=== PATIENT | female | born 1975 | race Caucasian/White ===

== ENCOUNTER 2024-02-13 09:45 | Emergency (ER) | payer SELFPAY ==
--- NOTE | 2024-02-13 10:01 | PD.EDRME ---
Rapid Medical Screening Exam RME Arrival date/time: 02/13/24 09:45 Chief Complaint: Hand/Wrist Problems RME Narrative: 48-year-old patient presents emergency department with complaint of left wrist pain. Patient states she drank excessively yesterday leading to a fall she does not recall when she fell if she struck her head. Pain is worse with flexion extension of her left wrist.
--- NOTE | 2024-02-13 10:02 | XR_ITS ---
Examination: CT brain head without contrast. 2-D sagittal coronal reconstructions Date and time of exam:February 13, 2024 1112 hrs. Indications: Patient fell this morning with injury to head, head pain CTDI: vol (mGy):49.6 DLP: (mGycm):1029 Technique: Multiple CT axial sections of the brain have been obtained, 5 mm slice thickness. Contrast has not been administered. 2-D sagittal, coronal reconstructions have been obtained Low dose protocols were performed. One or more of the following dose reduction techniques were used; automated exposure control, adjustment of the mA and/or KV according to patient size, use of iterative reconstruction technique. Findings: No significant ventricular enlargement. Intra-axial or extra-axial hemorrhage density is not seen. No mass effect or midline shift Basal cisterns are not remarkable. Fourth ventricle is midline. Cranial vault intact. Impression: Negative for acute hemorrhage, mass effect or midline shift Chronic ethmoid sphenoid sinusitis
--- NOTE | 2024-02-13 10:02 | XR_ITS ---
Examination: Wrist, left 3 views Technique: Wrist AP, oblique, lateral 3 views Date and time of exam: February 13, 2024 and 14 hours Indications: Patient fell today with intravenous, wrist pain Findings: No acute fracture No dislocation No foreign body Impression: No acute fracture
--- NOTE | 2024-02-13 10:02 | XR_ITS ---
Examination: Hand, left 3 views Technique: Hand AP, oblique, lateral 3 views Date and time of exam: February 13, 2024 and 15 hours Indications: Patient fell today with injury to hand, hand pain Findings: No acute fracture No dislocation No foreign body Impression: No acute fracture
[2024-02-13 10:07] VITALS: BP 116/78; PULSE 87; RESP 18; TEMP 36.7; O2SAT 97; BMI 31.1
[2024-02-13] MEDS: HYDROcodone/APAP 5/325 TABLET 1 TAB PO (10:14)
--- NOTE | 2024-02-13 11:49 | PRELIM_ITS ---
CT scan of the head without intravenous contrast (axial sections with sagittal and coronal reformats) February 13, 2024 at 1112 hours Clinical History: Fall Comparison: No prior study is available for co mparison. Findings:No evidence of intracranial hemorrhage, mass effect or midline shift. The ventricl es and CSF spaces are unremarkable. All the intracranial vascular structures and dural structures are slightly hyperdense, which may be related to recent contrast study, needs clinical correlation. The calvarium is intact. There is mild mucosal thickening in bilateral ethmoid and right sphenoid sinuses . The mastoid air cells are clear. Impression:No evidence of intracranial hemorrhage, midline shift o r calvarial fracture.Other findings as described above. Report Electronically Signed By: Jose Pennington 02/13/2024 11:48:40 AM [EST]
[2024-02-13 12:20] VITALS: BP 113/77; PULSE 85; RESP 16; TEMP 36.8; O2SAT 96
--- NOTE | 2024-02-13 13:48 | PD.EDADULT ---
ED General RME/HPI General Chief complaint: Hand/Wrist Problems Stated complaint: ETOH, fell last night left wrist Time Seen by Provider: 02/13/24 12:58 Arrival date/time: 02/13/24 09:45 CC: Left wrist/hand pain HPI patient was highly intoxicated and fell last night. Patient states she does not recall the event. Patient recently left her , and was drinking heavily. Patient denies nausea vomiting headache shortness of breath or difficulty breathing at this time focus solely on wrist pain which is 6 on a 10 scale no OTC medicines taken. RME / HPI RME / HPI narrative: 48-year-old patient presents emergency department with complaint of left wrist pain. Patient states she drank excessively yesterday leading to a fall she does not recall when she fell if she struck her head. Pain is worse with flexion extension of her left wrist. Related Data Previous Rx's ?Medication ?Instructions ?Recorded acetaminophen 500 mg capsule 1,000 mg (2 x 500 mg) PO Q6H PRN 04/16/20 fever or pain #30 caps ferrous sulfate 325 mg (65 mg 325 mg PO BID #120 tabs 04/16/20 iron) tablet ibuprofen 600 mg tablet 600 mg PO Q8H PRN fever or pain 04/16/20 #30 tabs sulfamethoxazole 800 1 tab PO BID #14 tabs 04/16/20 mg-trimethoprim 160 mg tablet (Bactrim DS) meloxicam 7.5 mg tablet 7.5 mg PO QDAY #10 tabs 02/13/24 Allergies Allergy/AdvReac Type Severity Reaction Status Date / Time No Known Allergies Allergy Verified 04/16/20 11:52 Review of Systems Review of Systems Narrative Review of Systems: GEN: No fever, no chills, no weight loss EYES: No discharge, no visual changes, no pain HEENT: No ear pain, no congestion, no sore throat PULM: No shortness of breath, no cough, no congestion CV: No chest pain, no dyspnea on exertion, no palpitations GI: No nausea, no vomiting, no diarrhea, no pain, no constipation : No frequency, no urgency, no dysuria MUSC/SKEL: + joint pain, no back pain SKIN: No rash PSYCH: No hallucinations, no depression HEME/LYMPH: No easy bleeding or bruising tendencies NEURO: No weakness, no headache Past Medical History Past Medical History CARDIAC: Negative Congestive Heart Failure RESPIRATORY: Negative Chronic Obstructive Pulmonary Disease (COPD) GASTROINTESTINAL: Positive Gastrointestinal Disorders and Ulcer GENITOURINARY: Negative Renal Disease MUSCULOSKELETAL: Positive Arthritis ENDOCRINE: Negative Diabetes Mellitus Type 1 or Diabetes Mellitus Type 2 PSYCHO/SOCIAL: Positive Depression and Anxiety Family History FAMILY HISTORY: Positive Family Psychiatric Problems Surgical History SURGICAL: Positive Abdominal Surgery, Gastric Bypass Surgery, Bowel Surgery and Tubal Ligation Social History SMOKING STATUS: Current every day smoker SUBSTANCE USE: marijuana, amphetamines and methamphetamine ED Exam Narrative Physical exam: [General: Obese in mild discomfort not in any acute distress Head normocephalic HEENT: Within acceptable limits Neck is supple nontender Chest equal chest rise nontender to palpation Respiratory: Clear to auscultation no wheezes crackles or rubs CV: Rate rhythm is regular no murmurs rubs or clicks Abdomen is distended secondary to body habitus soft nontender no masses positive bowel sounds all 4 quadrants Back: No CVA tenderness no spinous process tenderness from cervical spine thoracic and lumbar spine Skin: Intact no petechiae rash induration ulceration or crepitus Extremities: Pain with flexion extension rotation of the right wrist, pain with palpation of the dorsum of the right hand mild ecchymosis to the dorsum of the hand digits cap refill is less than 2 seconds neurosensory intact and full range of motion of the digits with prompting. Moving all other extremities against resistance cap refill less than 2 seconds neurosensory intact Neuro: Awake alert oriented x3 Glascow coma 15 no focal deficits] Course Quality Measures none Orders Category Date Time Status CT head/brain wo con Stat Exams 02/13/24 10:02 Completed XR hand comp LT min 3V Stat Exams 02/13/24 10:02 Completed XR wrist comp LT min 3V Stat Exams 02/13/24 10:02 Completed HYDROcodone*/APAP 5/325 [[place] 5/325] Med 02/13/24 10:02 Discontinued 1 tab PO X1 ONE Vital Signs Vital signs: Vital Signs Temperature 98.0 F 02/13/24 10:07 Pulse Rate 87 02/13/24 10:07 Respiratory Rate 18 02/13/24 10:07 Blood Pressure 116/78 02/13/24 10:07 Pulse Oximetry (%) 97 02/13/24 10:07 Oxygen Delivery Method Room Air 02/13/24 10:07 [facility] Patient data External records reviewed:: [facility] previous records Clinical information provided by:: patient Social determinants that could affect healthcare access:: none Patient has the following chronic illnesses:: None How is presenting disease/condition affected by chronic disease/condition?: uneffected by Evaluation data The following diagnostics were reviewed and interpreted by me:: radiology exam(s) Lab and/or radiology exams considered but not ordered:: CT of the head is interpreted by me read by radiology as negative for any acute finding requires emergent or meet intervention X-ray of the wrist and hand is interpreted by radiology as negative for any acute findings such as fracture malalignment or dislocation. Interpretation Summary: Right wrist and hand contusion Medications Medications considered but not ordered:: None Medication administrations:: Medication Administration History Discontinued Medications Hydrocodone Bitart/Acetaminophen (Hydrocodone/Apap 5/325 Tablet) 1 tab PO X1 ONE Stop: 02/13/24 10:03 Last Admin: 02/13/24 10:14 Dose: 1 tab Documented By: ED None Consultations Consultation(s) initiated? (list below): No Diagnosis Differential Diagnosis ED Complaint MDM: Wrist fracture hand fracture closed head injury Most likely diagnosis given after review of the tests above:: Wrist and hand contusion Admission Indicated Admission indicated?: not indicated Explain why admission is indicated or not indicated:: Stable for outpatient follow-up Admission Request Was there a request for admission?: No Disposition Plan Disposition Plan: Discharge Discharge Attestation Discharge Attestation: The patient and all family members were given an opportunity to ask questions and understood the discharge instructions. Discharge instructions specifically effects, indications for sooner follow up or return to the emergency department, and the expected course of current diagnosis. Patient condition: Stable Medical Decision Making Differential Diagnosis Differential Diagnosis: Wrist fracture hand fracture closed head injury Discharge Plan Plan Patient Disposition: HOME (Self Care) Patient condition on transfer: Stable Prescriptions/Referrals Prescriptions/Med Rec: New meloxicam 7.5 mg tablet 7.5 mg PO QDAY Qty: 10 0RF No Action sulfamethoxazole-trimethoprim [Bactrim DS] 800-160 mg tablet 1 tab PO BID Qty: 14 0RF ferrous sulfate 325 mg (65 mg iron) tablet 325 mg PO BID Qty: 120 0RF Rx Instructions: Be sure to take your iron pills on an empty stomach, with orange juice ibuprofen 600 mg tablet 600 mg PO Q8H PRN (Reason: fever or pain) Qty: 30 0RF acetaminophen 500 mg capsule 1,000 mg PO Q6H PRN (Reason: fever or pain) Qty: 30 0RF Referrals: Grzegorz Caraballo MD [Physician] - In 1 week No Primary/Family,Physician [Primary Care Provider] - In 1 week Problem List Clinical Impression: Ground-level fall, Contusion of left wrist, Contusion of hand Patient/Caregiver Discharge Instructions Education Materials: ED Hand Contusion, ED Mechanical Fall Additional Instructions: Avoid drinking alcohol, ibuprofen or pain medication listed above for temporary relief if there is worsening of symptoms follow-up with your primary care doctor or return the emergency room for reevaluation. Print Language: Qatari Stand Alone Forms: [facility] Award Info., Patient Portal Info Letter PA/CHUCKER Supervising Physician ELVA/LISANDRO Supervising Physician: Juan Alberto Beltran ENP
--- NOTE | 2024-02-13 15:01 | PC.NURSE ---
no answer x 3 at 1445 and 1500. checked outside and lobby.
--- NOTE | 2024-02-13 15:32 | PC.NURSE ---
no answer x 3 at 1532. checked outside and lobby. provider notified. patient left before receiving dc papers.
== END 2024-02-13 15:35 | disposition home or self-care (01) ==
PROVIDERS: Emergency Provider Emergency Medicine
DX: S60.212A Contusion of left wrist, initial encounter (principal); S60.222A Contusion of left hand, initial encounter; S09.90XA Unspecified injury of head, initial encounter; W18.30XA Fall on same level, unspecified, initial encounter
CPT/HCPCS: 70450; 73110; 73130; 99284; A9270

== ENCOUNTER 2024-07-12 11:20 | Emergency (ER) | payer MEDICAID, SELFPAY ==
--- NOTE | 2024-07-12 11:51 | XR_ITS ---
Examination: CT abdomen and pelvis without contrast. Coronal 3-D reconstructions. Sagittal 2-D reconstructions. Date and time of exam:July 12, 2024 1246 hours Comparison June 17, 2016 INDICATIONS: Lower abdominal pain and nausea today CTDI: vol (mGy): 9.18 DLP: (mGycm): 542 Technique: Axial images of the abdomen have been obtained, 3 mm slice thickness Intravenous contrast material has not been administered. Low dose protocols were performed. One or more of the following dose reduction techniques were used; automated exposure control, adjustment of the mA and/or KV according to patient size, use of iterative reconstruction technique. Findings: No focal liver or splenic lesions Absent gallbladder No pancreatic or adrenal mass No renal or ureteral calculi, no hydronephrosis Aorta normal size Normal appendix No bowel obstruction No diverticulitis Anteverted uterus No pelvic mass Contracted urinary bladder Mild osteopenia IMPRESSION: No renal or ureteral calculi, no hydronephrosis Normal appendix No bowel obstruction diverticulitis or free air
--- NOTE | 2024-07-12 11:51 | XR_ITS ---
Examination: PA lateral chest 2 views TECHNIQUE: Upright PA lateral chest 2 views Date and time: July 12, 2024 1222 hours Comparison 11/04/2018 INDICATIONS: Coughing shortness of breath beginning 3 days ago FINDINGS: Normal heart size Increased AP dimension chest Mild parenchymal disease in the right middle lobe on the lateral view Mild kyphosis dorsal spine IMPRESSION: Suspicious for early pneumonia right middle lobe
[2024-07-12 11:52] VITALS: BP 129/89; PULSE 80; RESP 16; TEMP 36.8; O2SAT 96; BMI 25.0
--- NOTE | 2024-07-12 11:53 | PD.EDRME ---
Rapid Medical Screening Exam RME Arrival date/time: 07/12/24 11:20 48-year-old female presents to the emergency dept today for complaints of abdominal pain, cough and congestion Chief Complaint: Flu Like Symptoms Time Seen by Provider: 07/12/24 11:38
[2024-07-12 12:37] LABS: Basophils % (Auto) 1 % (0-2.5); Eosinophils # (Auto) 0.1 Thou/mm3 (0.0-0.5); Eosinophils % (Auto) 1 % (0-10); Hematocrit 50.9 % (36.0-46.0); Hemoglobin 17.5 g/dL (12.0-16.0); Immature Granulocytes % (Auto) 0 % (0-0); Immature Granulocytes Auto 0.02 Thou/mm3 (0.00-0.00); Lymphocytes # (Auto) 1.4 Thou/mm3 (1.0-4.8); Lymphocytes % (Auto) 19 % (10-50); Mean Corpuscular HGB Conc 34.4 g/dl (31.0-37.0); Mean Corpuscular Hemoglobin 29.6 pg (25.0-35.0); Mean Corpuscular Volume 86 fL (80-100); Monocytes # (Auto) 0.6 Thou/mm3 (0.0-0.8); Monocytes % (Auto) 9 % (0-12); Neutrophils # (Auto) 5.1 Thou/mm3 (1.8-7.7); Neutrophils % (Auto) 70 % (37-80); Nucleated Red Blood Cell % 0 /100 WBC (0); Platelet Count 277 Thou/mm3 (140-440); RDW Standard Deviation 41.6 fL (36.4-46.3); Red Blood Count 5.92 Miln/mm3 (4.00-5.20); White Blood Count 7.2 Thou/mm3 (3.6-11.0)
[2024-07-12 13:07] LABS: B-Type Natriuretic Peptide < 20 pg/mL (0-100)
[2024-07-12 13:16] LABS: Alanine Aminotransferase 8 U/L (10-49); Albumin, Serum 4.6 gm/dL (3.5-5.0); Albumin/Globulin Ratio 1.6 (1.2-2.2); Alkaline Phosphatase 108 U/L (46-116); Anion Gap 11 (7-16); Aspartate Amino Transferase 19 U/L (0-34); BUN/Creatinine Ratio 12 Ratio (12-20); Bilirubin,Total 0.6 mg/dL (0.3-1.2); Blood Urea Nitrogen 12 mg/dL (9-23); Calcium 9.5 mg/dL (8.3-10.6); Calcium (Corrected) 9.5 mg/dL (8.5-10.1); Carbon Dioxide 26.3 mMol/L (20.0-31.0); Chloride 107 mMol/L (98-107); Estimated Creatinine Clearance 69.4 mL/min (>60); Globulin 2.8 gm/dL (2.3-3.5); Glucose 89 mg/dL (74-106); Lipase 34 U/L (12-53); Osmolality,Calculated 285 (275-295); Potassium 3.8 mMol/L (3.4-5.1); Sodium 144 mMol/L (136-145); Total Protein 7.4 gm/dL (5.7-8.2); Troponin I < 0.002 ng/mL (0.0-0.045); eGFR > 60 See Note
[2024-07-12 13:58] LABS: Collection Type, Urine Clean Catch
[2024-07-12 14:20] LABS: Amphetamine/Methamp Scrn,U Negative (Negative); Barbiturate Screen,Urine Negative (Negative); Benzodiazepines Screen,Urine Negative (Negative); Benzoylecgonine Screen, Ur Negative (Negative); Fentanyl Screen,Urine Negative (Negative); Opiate Screen,Urine Negative (Negative); THC Screen,Urine Negative (Negative)
[2024-07-12 14:21] LABS: HCG Qualitative,Urine Negative
[2024-07-12 14:27] LABS: Bacteria,Urine Rare; Bilirubin,Urine Negative (Negative); Blood,Urine 2+ (Negative); Clarity,Urine Turbid (Clear/Hazy); Color,Urine Yellow (Lt Yel-Yel); Culture Indicated,Urine Contaminated; Glucose, Urine Negative (Negative); Ketones,Urine Negative (Negative); Leukocyte Esterase,Urine Positive (Negative); Nitrite,Urine Positive (Negative); Protein,Urine 1+ (Neg - Trace); RBC,Urine 12 /hpf (0-3); Specific Gravity,Urine 1.012 (1.001-1.035); Squamous Epithelial Cell,Urine 14 /hpf (0-5); Urobilinogen,Urine Negative mg/dL (0.0-1.0); WBC,Urine 220 /hpf (0-5)
--- NOTE | 2024-07-12 15:03 | EDNOTE_ITS ---
Upper Respiratory Inf. RME/HPI General Chief Complaint: Flu Like Symptoms Stated Complaint: Cough, lower abdominal pain Time Seen by Provider: 07/12/24 11:38 Arrival date/time: 07/12/24 11:20 RME / HPI RME / HPI Narrative: 07/12/24 11:20 48-year-old female presents to the emergency dept today for complaints of abdominal pain, cough and congestion DR. YULIANA SINGH ED EVALUATION: 48 year old female presents to the ED with shortness of breath, cough worse when lying down, and nasal congestion that began 2 days ago. She also reports experiencing chills, intermittent sweats, lower abdominal aching, and urinary u rgency, though she denies dysuria or fever. In addition, the patient states she is scheduled for a colonoscopy due to ongoing issues with persistent loose stools alternating with constipation. Her surgical history is notable for hiatal hernia repair, perforated ulcer repair, and tubal ligation. Related Data Previous Rx's ?Medication ?Instructions ?Recorded acetaminophen 500 mg capsule 1,000 mg (2 x 500 mg) PO Q6H PRN 04/16/20 fever or pain #30 caps ferrous sulfate 325 mg (65 mg 325 mg PO BID #120 tabs 04/16/20 iron) tablet ibuprofen 600 mg tablet 600 mg PO Q8H PRN fever or p ain 04/16/20 #30 tabs sulfamethoxazole 800 1 tab PO BID #14 tabs mg-trimethoprim 160 mg tablet (Bactrim DS) meloxicam 7.5 mg tablet 7.5 mg PO QDAY #10 tabs 07/02 cephalexin 500 mg capsule 500 mg PO BID #6 caps Allergies Allergy/AdvReac Type Severity Reaction Status Date / Time No Known Allergies Allergy Verified 07/12/24 11:23 Review of Systems Review of Systems Systems Reviewed: All systems reviewed, normal except as documented Past Medical History Past Medical History GASTROINTESTINAL: Positive Gastrointestinal Disorders and Ulcer MUSCULOSKELETAL: Positive Arthritis PSYCHO/SOCIAL: Positive Depression and Anxiety Family History FAMILY HISTORY: Positive Family Psychiatric Problems Surgical History SURGICAL: Positive Abdominal Surgery, Gastric Bypass Surgery, Bowel Surgery and Tubal Ligation Social History SMOKING STATUS: Heavy (> 1 pack/day) SUBSTANCE USE: marijuana, amphetamines and methamphetamine ED Exam Narrative Physical exam: GENERAL APPEARANCE: AxOx4, no obvious distress, nontoxic appearing HEENT: NC, AT. MMM. EOMI, clear conjunctiva, oropharynx clear. NECK: Supple without lymphadenopathy. No stiffness or restricted ROM. HEART: Normal rate and regular rhythm, normal S1/S1, no m/r/g LUNGS: CTAB, moving air well. No crackles or wheezes are heard. ABDOMEN: Soft, large vertical surgical scar noted, nontender, nondistended with good bowel sounds heard. BACK: No midline C/T/L spine pain or deformity, No CVAT, no obvious deformity. EXTREMITIES: Without cyanosis, clubbing or edema. MUSCULOSKELETAL: FROM of all major joints, no chest tenderness NEUROLOGICAL: Grossly nonfocal. Alert and oriented, moving all 4 extremities. CN not formally tested but appear grossly intact. Skin: Warm and dry without any rash. Course Quality Measures none Orders Category Date Time Status CT abdomen pelvis wo con Stat Exams 07/12/24 11:51 Completed XR chest 2V Stat Exams 07/12/24 11:51 Completed BNP [B-Type Natriuretic Peptide] Stat Lab 07/12/24 12:11 Completed CBC Stat Lab 07/12/24 12:11 Completed Comprehensive Metabolic Panel Stat Lab 07/12/24 12:11 Completed Drug Screen,Urine Stat Lab 07/12/24 13:50 Completed HCG Qualitative,Urine Stat Lab 07/12/24 13:50 Completed Lipase Stat Lab 07/12/24 12:11 Completed Troponin I Stat Lab 07/12/24 12:11 Completed UA, C/S IF [Urinalysis, C/S if Indicated] Stat Lab 07/12/24 13:50 Completed Vital Signs Vital signs: Vital Signs Temperature 98.2 F 07/12/24 11:52 Pulse Rate 80 07/12/24 11:52 Respiratory Rate 16 07/12/24 11:52 Blood Pressure 129/89 H 07/12/24 11:52 Pulse Oximetry (%) 96 07/12/24 11:52 Oxygen Delivery Method Room Air 07/12/24 11:52 Pulse ox is 96% on room air which is adequate. Upper Respiratory Infection MDM Narrative MDM Narrative:: Angelia Arreola am scribing for and in the presence of Dr. Plaza. Patient data External records reviewed:: [facility] previous records (I reviewed ED visit on 02/13/2024 ) Clinical information provided by:: patient Social determinants that could affect healthcare access:: none Patient has the following chronic illnesses:: hiatal hernia repair, perforated ulcer repair, and tubal ligation. How is presenting disease/condition affected by chronic disease/condition?: uneffected by Evaluation data The following diagnostics were reviewed and interpreted by me:: lab results and radiology exam(s) Lab and/or radiology exams considered but not ordered:: None Interpretation Summary: Ordering Physician: Irwin Ramírez NP, NP Date of Service: 07/12/24 Procedure(s): CT abdomen pelvis wo con Accession Number(s): [id number] cc: Desiree ONEIL)Irwin NP; Andres Moore PA-C; Teddy Quiroz MD~ Examination: CT abdomen and pelvis without contrast. Coronal 3-D reconstructions. Sagittal 2-D reconstructions. Date and time of exam:July 12, 2024 1246 hours Comparison June 17, 2016 INDICATIONS: Lower abdominal pain and nausea today CTDI: vol (mGy): 9.18 DLP: (mGycm): 542 Technique: Axial images of the abdomen have been obtained, 3 mm slice thickness Intravenous contrast material has not been administered. Low dose protocols were performed. One or more of the following dose reduction techniques were used; automated exposure control, adjustment of the mA and/or KV according to patient size, use of iterative reconstruction technique. Findings: No focal liver or splenic lesions Absent gallbladder No pancreatic or adrenal mass No renal or ureteral calculi, no hydronephrosis Aorta normal size Normal appendix No bowel obstruction No diverticulitis Anteverted uterus No pelvic mass Contracted urinary bladder Mild osteopenia IMPRESSION: No renal or ureteral calculi, no hydronephrosis Normal appendix No bowel obstruction diverticulitis or free air Dictated By: Teddy Quiroz MD Signed By: <Electronically signed by Teddy Quiroz MD in OV> 07/12/24 1306 = Ordering Physician: Irwin Ramírez NP, NP Date of Service: 07/12/24 Procedure(s): XR chest 2V Accession Number(s): [id number] cc: Desiree (JOSE),Irwin GARCIA; Andres Moore PA-C; Teddy Quiroz MD~ Examination: PA lateral chest 2 views TECHNIQUE: Upright PA lateral chest 2 views Date and time: July 12, 2024 1222 hours Comparison 11/04/2018 INDICATIONS: Coughing shortness of breath beginning 3 days ago FINDINGS: Normal heart size Increased AP dimension chest Mild parenchymal disease in the right middle lobe on the lateral view Mild kyphosis dorsal spine IMPRESSION: Suspicious for early pneumonia right middle lobe Dictated By: Teddy Quiroz MD Signed By: <Electronically signed by Teddy Quiroz MD in OV> 07/12/24 1235 Medications / Prescriptions Medications or Prescriptions considered but not ordered:: None Medication administrations:: None Consultations Consultation(s) initiated? (list below): No Diagnosis Upper Respiratory Differential Diagnosis: upper respiratory infection, viral in fection, bronchitis, influenza and other (UTI ) Most likely diagnosis given after review of the tests above:: UTI Post nasal drip Admission Indicated Admission indicated?: not indicated Admission Request Was there a request for admission?: No Disposition Plan Disposition Plan: Discharge Discharge Attestation Discharge Attestation: The patient and all family members were given an opportunity to ask questions and understood the discharge instructions. Discharge instructions specifically effects, indications for sooner follow up or return to the emergency department, and the expected course of current diagnosis. Patient condition: Stable Discharge Plan Plan Patient Disposition: HOME (Self Care) Prescriptions/Referrals Prescriptions/Med Rec: New cephalexin 500 mg capsule 500 mg PO BID Qty: 6 0RF No Action sulfamethoxazole-trimethoprim [Bactrim DS] 800-160 mg tablet 1 tab PO BID Qty: 14 0RF ferrous sulfate 325 mg (65 mg iron) tablet 325 mg PO BID Qty: 120 0RF Rx Instructions: Be sure to take your iron pills on an empty stomach, with orange juice ibuprofen 600 mg tablet 600 mg PO Q8H PRN (Reason: fever or pain) Qty: 30 0RF acetaminophen 500 mg capsule 1,000 mg PO Q6H PRN (Reason: fever or pain) Qty: 30 0RF meloxicam 7.5 mg tablet 7.5 mg PO QDAY Qty: 10 0RF Referrals: Andres Moore PA-C [Primary Care Provider] - In 1 week Problem List Clinical Impression: UTI (urinary tract infection), Post-nasal drip Patient/Caregiver Discharge Instructions Education Materials: ED Cough Chronic Uncertain Cause Adult, ED Allergic Rhinitis, ED CYSTITIS Female Adult Additional Instructions: Follow-up with your primary care doctor in 3 to 5 days if symptoms or not improving. You can return to the Emergency Department sooner symptoms worsen or if noticing new, concerning issues. Print Language: Montenegrin Stand Alone Forms: [facility] Award Info., Patient Portal Info Letter
[2024-07-12 15:16] VITALS: BP 122/87; PULSE 78
== END 2024-07-12 15:17 | disposition home or self-care (01) ==
PROVIDERS: Nurse Practitioner Primary Care; Emergency Provider Emergency Medicine; PCP Physician Assistant
DX: N39.0 Urinary tract infection, site not specified (principal); R09.82 Postnasal drip; R05.9 Cough, unspecified
CPT/HCPCS: 36415; 71046; 74176; 80053; 80307; 81001; 81025; 83690; 83880; 84484; 85025; 99284

== ENCOUNTER 2024-10-06 11:24 | Emergency (ER) | payer SELFPAY ==
[2024-10-06 11:25] VITALS: BMI 24.3
[2024-10-06 11:33] VITALS: BP 154/76; PULSE 89; RESP 18; TEMP 36.9; O2SAT 97
--- NOTE | 2024-10-06 11:41 | XR_ITS ---
Examination: CT abdomen and pelvis without contrast. Coronal 3-D reconstructions. Sagittal 2-D reconstructions. Date and time of exam:October 06, 2024, 1331 hours, comparison July 12, 2024 INDICATIONS: Lower abdominal pain and nausea today CTDI: vol (mGy): 7.27 DLP: (mGycm): 402 Technique: Axial images of the abdomen have been obtained, 3 mm slice thickness Intravenous contrast material has not been administered. Low dose protocols were performed. One or more of the following dose reduction techniques were used; automated exposure control, adjustment of the mA and/or KV according to patient size, use of iterative reconstruction technique. Findings: Small pericardial effusion No focal liver or splenic lesions Gastric sutures, negative for gastritis Absent gallbladder No pancreatic or adrenal mass No renal or ureteral calculi, no hydronephrosis Aorta normal size Normal appendix No diverticulitis No bowel obstruction Atrophic uterus No pelvic mass Contracted urinary bladder Moderate osteopenia IMPRESSION: Nonobstructive bowel gas pattern. No renal or ureteral calculi, no hydronephrosis Normal appendix No diverticulitis
--- NOTE | 2024-10-06 11:42 | EDRME_ITS ---
Rapid Medical Screening Exam [facility] Arrival date/time: 10/06/24 11:24 49-year-old female with history of abdominal pain presents to the emergency room with a chief complaint of 10 out of 10 epigastric pain that radiates to the right upper quadrant and right lower quadrant x 2 days. Patient states she has had nausea vomiting. I have greeted and performed a focused initial assessment of this patient. A comprehensive ED assessment and evaluation of the patient, analysis of all test results, and completion of the medical decision making process will be conducted by additional ED providers. Chief Complaint: Abdominal Pain Time Seen by Provider: 10/06/24 11:28 Vital signs: Vital Signs Temperature 98.5 F 10/06/24 11:33 Pulse Rate 89 10/06/24 11:33 Respiratory Rate 18 10/06/24 11:33 Blood Pressure 154/76 H 10/06/24 11:33 Pulse Oximetry (%) 97 10/06/24 11:33 Oxygen Delivery Method Room Air 10/06/24 11:33 Vital signs reviewed by provider: Yes
[2024-10-06] MEDS: ONDANSETRON ODT 4 MG TABRAP PO (11:52)
[2024-10-06] MEDS: MG HYD/AL HYD/SIME (Maalox Reg) SUSP 30 ML UDC PO (11:53)
[2024-10-06 11:55] LABS: Collection Type, Urine Clean Catch
[2024-10-06 11:59] LABS: Basophils # (Auto) 0.1 Thou/mm3 (0.0-0.2); Basophils % (Auto) 1 % (0-2.5); Eosinophils # (Auto) 0.1 Thou/mm3 (0.0-0.5); Eosinophils % (Auto) 2 % (0-10); Hematocrit 52.4 % (36.0-46.0); Hemoglobin 17.3 g/dL (12.0-16.0); Immature Granulocytes Auto 0.02 Thou/mm3 (0.00-0.00); Lymphocytes # (Auto) 2.3 Thou/mm3 (1.0-4.8); Lymphocytes % (Auto) 28 % (10-50); Mean Corpuscular HGB Conc 33.0 g/dl (31.0-37.0); Mean Corpuscular Hemoglobin 29.3 pg (25.0-35.0); Mean Corpuscular Volume 89 fL (80-100); Monocytes # (Auto) 0.5 Thou/mm3 (0.0-0.8); Monocytes % (Auto) 6 % (0-12); Neutrophils # (Auto) 5.2 Thou/mm3 (1.8-7.7); Neutrophils % (Auto) 63 % (37-80); Nucleated Red Blood Cell # 0.00 Thou/mm3 (0.00-0.00); Nucleated Red Blood Cell % 0 /100 WBC (0); Platelet Count 290 Thou/mm3 (140-440); RDW Standard Deviation 41.6 fL (36.4-46.3); Red Blood Count 5.90 Miln/mm3 (4.00-5.20); White Blood Count 8.3 Thou/mm3 (3.6-11.0)
[2024-10-06 12:09] LABS: Bacteria,Urine Rare; Bilirubin,Urine Negative (Negative); Blood,Urine Negative (Negative); Clarity,Urine Clear (Clear/Hazy); Color,Urine Yellow (Lt Yel-Yel); Glucose, Urine Negative (Negative); Hyaline Casts,Urine < 1 /hpf (0-1); Ketones,Urine Negative (Negative); Leukocyte Esterase,Urine Negative (Negative); Nitrite,Urine Negative (Negative); PH,Urine 5.5 (5.0-7.0); Protein,Urine Trace (Neg - Trace); RBC,Urine 4 /hpf (0-3); Specific Gravity,Urine 1.032 (1.001-1.035); Squamous Epithelial Cell,Urine < 1 /hpf (0-5); Urobilinogen,Urine 2.0 mg/dL (0.0-1.0); WBC,Urine 9 /hpf (0-5)
[2024-10-06 12:10] LABS: HCG Qualitative,Urine Negative
[2024-10-06 12:37] LABS: Alanine Aminotransferase 8 U/L (10-49); Albumin, Serum 4.2 gm/dL (3.5-5.0); Albumin/Globulin Ratio 1.6 (1.2-2.2); Alkaline Phosphatase 73 U/L (46-116); Anion Gap 10 (7-16); Aspartate Amino Transferase 17 U/L (0-34); BUN/Creatinine Ratio 13 Ratio (12-20); Bilirubin,Total 0.5 mg/dL (0.3-1.2); Blood Urea Nitrogen 10 mg/dL (9-23); Calcium 9.9 mg/dL (8.3-10.6); Calcium (Corrected) 9.9 mg/dL (8.5-10.1); Carbon Dioxide 25.0 mMol/L (20.0-31.0); Chloride 108 mMol/L (98-107); Creatinine (Component) 0.8 mg/dL (0.6-1.3); Estimated Creatinine Clearance 85.8 mL/min (>60); Globulin 2.7 gm/dL (2.3-3.5); Glucose 76 mg/dL (74-106); Lipase 29 U/L (12-53); Osmolality,Calculated 282 (275-295); Potassium 3.4 mMol/L (3.4-5.1); Sodium 143 mMol/L (136-145); Total Protein 6.9 gm/dL (5.7-8.2); eGFR > 60 See Note
--- NOTE | 2024-10-06 13:25 | PD.EDABDPN ---
ED Abdominal Pain RME/HPI General Chief Complaint: Abdominal Pain Stated complaint: ABD PAIN FOR 7 DAYS Time seen by provider: 10/06/24 11:28 Arrival date/time: 10/06/24 11:24 RME / HPI RME / HPI narrative: 49-year-old female with history of abdominal pain presents to the emergency room with a chief complaint of 10 out of 10 epigastric pain that radiates to the right upper quadrant and right lower quadrant x 2 days. Patient states she has had nausea vomiting. Patient denies any fever. Denies any other complaints. No medication was taken prior to arrival. Denies any blood in the stool or black-colored stool. Related Data Previous Rx's ?Medication ?Instructions ?Recorded acetaminophen 500 mg capsule 1,000 mg (2 x 500 mg) PO Q6H PRN 04/16/20 fever or pain #30 caps ferrous sulfate 325 mg (65 mg 325 mg PO BID #120 tabs 04/16/20 iron) tablet ibuprofen 600 mg tablet 600 mg PO Q8H PRN fever or pain 04/16/20 #30 tabs sulfamethoxazole 800 1 tab PO BID #14 tabs 04/16/20 mg-trimethoprim 160 mg tablet (Bactrim DS) meloxicam 7.5 mg tablet 7.5 mg PO QDAY #10 tabs 02/13/24 cephalexin 500 mg capsule 500 mg PO BID #6 caps 07/12/24 pantoprazole 40 mg tablet,delayed 40 mg PO QDAY #30 tabs 10/06/24 release (Protonix) Allergies Allergy/AdvReac Type Severity Reaction Status Date / Time No Known Allergies Allergy Verified 10/06/24 11:26 Review of Systems Review of Systems Narrative Review of Systems: Review of system reviewed and within normal limits except mentioned in HPI ED Exam Narrative Physical exam: VITAL SIGNS: Reviewed. GENERAL APPEARANCE: Alert and interactive, follows commands, no acute distress, HEAD AND FACE: Non-traumatic. ENT: PERRL, pink conjunctivitis, eyelid no trauma, Mucous membrane moist. NECK: Supple, nontender, no nuchal rigidity. CHEST: No tenderness, no crepitus, no paradoxical movement, no retractions. LUNGS: Clear, well ventilated, symmetric, no rales, no wheezing, no ronchi, no stridor, good breath sounds bilaterally. HEART: Regular rate, regular rhythm, no murmur, no gallops. ABDOMEN: Soft, positive bowel sounds, nondistended, no guarding, epigastric tenderness, no rebound, no masses, RECTAL: Deferred. GENITAL: Deferred. NEUROLOGICAL: Gross motor function intact sensory function intact, Appropriate for age. MUSCULOSKELETAL: low back nontender, full range of motion. EXTREMITIES: Nontender, full range of motion. SKIN: Color pink, dry, no rash, no lacerations, no abrasions, no contusions. LYMPHATICS: Deferred. Course Quality Measures none Orders Category Date Time Status CT abdomen pelvis wo con Stat Exams 10/06/24 11:41 Completed CBC Stat Lab 10/06/24 11:48 Completed CMP [Comprehensive Metabolic Panel] Stat Lab 10/06/24 11:48 Completed HCG Qualitative,Urine Stat Lab 10/06/24 11:49 Completed Lipase Stat Lab 10/06/24 11:48 Completed UA [Urinalysis] Stat Lab 10/06/24 11:49 Completed Urine Culture Stat Lab 10/06/24 11:49 Received Ondansetron Odt [Zofran Odt] Med 10/06/24 11:41 Discontinued 4 mg PO X1 ONE Pantoprazole [Protonix] Med 10/06/24 13:25 Discontinued 40 mg PO X1 ONE mg Hyd/Al Hyd/Chary Susp [Maalox Susp] Med 10/06/24 11:41 Discontinued 30 ml PO X1 ONE Vital Signs Vital signs: Vital Signs Temperature 98.5 F 10/06/24 11:33 Pulse Rate 89 10/06/24 11:33 Respiratory Rate 18 10/06/24 11:33 Blood Pressure 154/76 H 10/06/24 11:33 Pulse Oximetry (%) 97 10/06/24 11:33 Oxygen Delivery Method Room Air 10/06/24 11:33 Abdominal Pain MDM MDM Narrative MDM Narrative:: 49-year-old female with history of abdominal pain presents to the emergency room with a chief complaint of 10 out of 10 epigastric pain that radiates to the right upper quadrant and right lower quadrant x 2 days. Patient states she has had nausea vomiting. Patient denies any fever. Denies any other complaints. No medication was taken prior to arrival. Denies any blood in the stool or black-colored stool. CT scan of the abdomen pelvis came back unremarkable. Patient's laboratory workup also came back normal. No abnormality noted. Results discussed with the patient. Patient appears nontoxic and hemodynamically stable .Decision to discharge the patient. The patient/family was given an opportunity to ask questions and understood their discharge instructions. Discharge instructions specifically included follow up provider and time frame, current and/or new medications and possible side effects, indications for sooner follow up or return to the emergency department, and the expected course of current diagnosis. Patient reports feeling better as well and giving evidence of significant clinical improvement, I believe patient is now a candidate for discharge. Patient data External records reviewed:: None Clinical information provided by:: patient Social determinants that could affect healthcare access:: none Patient has the following chronic illnesses:: Psoriasis How is presenting disease/condition affected by chronic disease/condition?: uneffected by Evaluation data The following diagnostics were reviewed and interpreted by me:: lab results and radiology exam(s) Lab and/or radiology exams considered but not ordered:: None Interpretation Summary: See results in MDM Medications / Prescriptions Medications or Prescriptions considered but not ordered:: None Medication administrations:: Medication Administration History Discontinued Medications Al Hydrox/Mg Hydrox/Simethicone (Mg Hyd/Al Hyd/Chary (Maalox Reg) Susp 30 Ml Udc) 30 ml PO X1 ONE Stop: 10/06/24 11:42 Last Admin: 10/06/24 11:53 Dose: 30 ml Documented By: Ondansetron HCl (Ondansetron Odt 4 Mg Tabrap) 4 mg PO X1 ONE; Protocol Stop: 10/06/24 11:42 Last Admin: 10/06/24 11:52 Dose: 4 mg Documented By: Pantoprazole Sodium (Pantoprazole 40 Mg Tablet) 40 mg PO X1 ONE Stop: 10/06/24 13:26 Zofran, Maalox and Protonix Consultations Consultation(s) initiated? (list below): No Diagnosis Differential diagnosis abdominal pain: abdominal pain, constipation and gastroenteritis Most likely diagnosis given after review of the tests above:: Gastritis Admission Indicated Admission indicated?: not indicated Explain why admission is indicated or not indicated:: Stable Admission Request Was there a request for admission?: No Disposition Plan Disposition Plan: Discharge Discharge Attestation Discharge Attestation: The patient was given an opportunity to ask questions and understood the discharge instructions. Discharge instructions specifically effects, indications for sooner follow up or return to the emergency department, and the expected course of current diagnosis. Patient condition: Stable Discharge Plan Plan Patient Disposition: HOME (Self Care) Discharge Disposition comment: stable Prescriptions/Referrals Prescriptions/Med Rec: New pantoprazole [Protonix] 40 mg tablet,delayed release (DR/EC) 40 mg PO QDAY Qty: 30 0RF No Action sulfamethoxazole-trimethoprim [Bactrim DS] 800-160 mg tablet 1 tab PO BID Qty: 14 0RF ferrous sulfate 325 mg (65 mg iron) tablet 325 mg PO BID Qty: 120 0RF Rx Instructions: Be sure to take your iron pills on an empty stomach, with orange juice ibuprofen 600 mg tablet 600 mg PO Q8H PRN (Reason: fever or pain) Qty: 30 0RF acetaminophen 500 mg capsule 1,000 mg PO Q6H PRN (Reason: fever or pain) Qty: 30 0RF meloxicam 7.5 mg tablet 7.5 mg PO QDAY Qty: 10 0RF cephalexin 500 mg capsule 500 mg PO BID Qty: 6 0RF Referrals: Grzegorz Caraballo MD [Primary Care Provider] - In 1 week Problem List Clinical Impression: Abdominal pain, Gastritis Patient/Caregiver Discharge Instructions Discharge Activity: activity as tolerated Education Materials: ED Gastritis (Adult) Additional Instructions: Thank you for the opportunity for serving you today. You are stable for discharged . You are advised to: Follow-up with your PCP in 1 to 2 days Return to ED for worsening of symptoms Increase oral fluids Take medication as prescribed Print Language: Lebanese Stand Alone Forms: [employer] Info., Patient Portal Info Letter
[2024-10-06 14:31] VITALS: BP 134/96; PULSE 63; RESP 15; TEMP 36.8; O2SAT 98
[2024-10-06] MEDS: PANTOPRAZOLE 40 MG TABLET PO (15:11)
[2024-10-06 15:12] VITALS: BP 133/99; PULSE 67; RESP 18; TEMP 36.6; O2SAT 99
== END 2024-10-06 15:15 | disposition home or self-care (01) ==
PROVIDERS: Nurse Practitioner Family; Emergency Provider Family Medicine; PCP Family Medicine
DX: K29.70 Gastritis, unspecified, without bleeding (principal)
CPT/HCPCS: 36415; 74176; 80053; 81001; 81025; 83690; 85025; 87077; 87086; 87186; 99283; Q0162; A9270

== ENCOUNTER 2024-10-08 07:40 | Emergency (ER) | payer MEDICAID, SELFPAY ==
[2024-10-08 07:45] VITALS: BP 146/94; PULSE 96; RESP 18; TEMP 36.5; O2SAT 97
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
[2024-10-08] MEDS: HYDROcodone/APAP 5/325 TABLET 1 TAB PO (08:08)
[2024-10-08] MEDS: ONDANSETRON ODT 4 MG TABRAP PO (08:09)
[2024-10-08] MEDS: DEXAMETHASONE SOD PHOS INJ 10 MG/ML VIAL PO (08:09)
[2024-10-08] MEDS: KETOROLAC INJ 60 MG/2 ML VIAL 30 MG IM (08:11)
== END 2024-10-08 08:17 | disposition home or self-care (01) ==
PROVIDERS: Emergency Provider Physician Assistant; PCP Family Medicine
DX: L40.50 Arthropathic psoriasis, unspecified (principal)
CPT/HCPCS: 96372; 99283; J1100; J1885; Q0162; A9270

== ENCOUNTER 2024-10-09 12:40 | Emergency (ER) | payer MEDICAID, SELFPAY ==
[2024-10-09 12:41] VITALS: BMI 24.3
[2024-10-09 13:01] VITALS: BP 148/84; PULSE 88; RESP 18; TEMP 37.1; O2SAT 99
--- NOTE | 2024-10-09 13:13 | XR_ITS ---
Examination: Thoracic spine 3 views Technique one AP lateral coned lateral upper dorsal spine 3 views Date and time: October 09, 2024 1331 hrs. Indications: Upper back pain beginning one week ago. Findings: Upper thoracic dextroscoliosis 10 degrees, lower thoracic levoscoliosis 10 degrees Moderate osteopenia. No acute thoracic fracture. Mild thoracic spondylosis. Mild to moderate diffuse thoracic disc narrowing Impression: Mild to moderate diffuse thoracic degenerative disc disease
--- NOTE | 2024-10-09 13:32 | EDNOTE_ITS ---
<Statement entered by Lyn Carter MD - 10/21/24 11:15> As co-signing physician, I was present and available for consult prn. I concur with the plan and care as documented by the midlevel provider. ED General RME/HPI General Chief complaint: General Adult/Misc Complain Stated complaint: C/O DIFF BREATHING FROM ARTHRITIS FLAIR UP Time Seen by Provider: 10/09/24 13:11 Source: patient Arrival date/time: 10/09/24 12:40 49-year-old female with no known medical history presents to the emergency room with a chief complaint of thoracic back pain x 1 day Mode of arrival: ambulatory Limitations: no limitations Related Data Previous Rx's ?Medication ?Instructions ?Recorded acetaminophen 500 mg capsule 1,000 mg (2 x 500 mg) PO Q6H PRN 04/16/20 fever or pain #30 caps ferrous sulfate 325 mg (65 mg 325 mg PO BID #120 tabs 04/16/20 iron) tablet ibuprofen 600 mg tablet 600 mg PO Q8H PRN fever or p ain 04/16/20 #30 tabs sulfamethoxazole 800 1 tab PO BID #14 tabs mg-trimethoprim 160 mg tablet (Bactrim DS) meloxicam 7.5 mg tablet 7.5 mg PO QDAY #10 tabs 07/02 cephalexin 500 mg capsule 500 mg PO BID #6 caps pantoprazole 40 mg tablet,delayed 40 mg PO QDAY #30 ta bs 10/06/24 release (Protonix) IBU 800 mg tablet (ibuprofen) 800 mg PO Q6H PRN pain # 30 tabs 10/08/24 prednisone 20 mg tablet 60 mg PO QDAY 5 days #15 tab s 10/08/24 Allergies Allergy/AdvReac Type Severity Reaction Status Date / Time No Known Allergies Allergy Verified 10/09/24 12:43 Review of Systems Review of Systems Systems Reviewed: All systems reviewed, normal except as documented Constitutional Constitutional: Reports system reviewed and no additional complaints, except as documented, Denies fatigue, Denies fever(s), Denies headache(s) and Denies weakness Eyes Eyes: Reports system reviewed and no additional complaints, except as documented, Denies blurry vision and Denies change in vision ENT Ears, Nose, Mouth, and Throat: Reports system reviewed and no additional complaints, except as documented, Denies otalgia, Denies headache(s), Denies nasal congestion, Denies throat swelling and Denies vertigo Cardiovascular Cardiovascular: Reports system reviewed and no additional complaints, except as documented, Denies chest pain, Denies dyspnea and Denies dyspnea on exertion Respiratory Respiratory: Reports system reviewed and no additional complaints, except as documented, Denies chest congestion, Denies cough, Denies dyspnea, Denies dyspnea on exertion and Denies wheezing Gastrointestinal Gastrointestinal: Reports system reviewed and no additional complaints, except as documented, Denies abdominal pain, Denies cramping, Denies nausea and Denies vomiting Genitourinary Genitourinary: Reports system reviewed and no additional complaints, except as documented Musculoskeletal Musculoskeletal: Reports system reviewed and no additional complaints, except as documented and Reports back pain Integumentary/Breasts Skin/Breast: Reports system reviewed and no additional complaints, except as documented and Denies wounds Neurologic Neurologic: Reports system reviewed and no additional complaints, except as documented, Denies confusion, Denies headache(s), Denies lack of coordination, Denies vertigo and Denies weakness Psychiatric Psychiatric: Reports system reviewed and no additional complaints, except as documented, Denies anxiety, Denies confusion, Denies depression, Denies paranoia, Denies suicidal ideation and Denies tactile hallucinations Endocrine Endocrine: Reports system reviewed and no additional complaints, except as documented and Denies fatigue Hematologic/Lymphatic Hematologic/Lymphatic: Reports system reviewed and no additional complaints, except as documented and Denies lymphadenopathy Allergic/Immunologic Allergic/Immunologic: Reports system reviewed and no additional complaints, except as documented, Denies throat swelling, Denies urticaria and Denies wheezing ED Exam General Limitations: Present no limitations General appearance: Present alert and in no apparent distress Head Head exam: Present atraumatic Eye Eye exam: Present normal appearance, PERRL and EOMI ENT ENT exam: Present normal exam, normal oropharynx and mucous membranes moist Neck Neck exam: Present normal inspection, full ROM and trachea midline Chest Chest inspection: Present normal inspection and symmetric chest wall rise Respiratory Respiratory exam: Present normal lung sounds bilaterally Cardiovascular Cardiovascular exam: Present regular rate, normal rhythm and normal heart sounds Abdominal Exam Abdominal exam: Present soft and normal bowel sounds Extremities Exam Extremities exam: Present normal inspection and full ROM Back Exam Back exam: Present normal inspection, full ROM, tenderness and vertebral tenderness Back 1 view image: 2 1. Thoracic back pain Neurological Exam Neurological exam: Present alert, oriented X3 and CN II-XII intact Psychiatric Psychiatric exam: Present normal affect and normal mood Skin Skin exam: Present warm, dry, intact and normal color Course Quality Measures none Orders Category Date Time Status XR thoracic spine 3V Stat Exams 10/09/24 13:13 Completed Ketorolac Inj [Toradol Inj] Med 10/09/24 13:13 Discontinued 30 mg IM X1 ONE Vital Signs Vital signs: Vital Signs Temperature 98.7 F 10/09/24 13:01 Pulse Rate 88 10/09/24 13:01 Respiratory Rate 18 10/09/24 13:01 Blood Pressure 148/84 H 10/09/24 13:01 Pulse Oximetry (%) 99 10/09/24 13:01 Oxygen Delivery Method Room Air 10/09/24 13:01 Discharge Plan Plan Patient Disposition: HOME (Self Care) Discharge Disposition comment: Stable Prescriptions/Referrals Prescriptions/Med Rec: No Action sulfamethoxazole-trimethoprim [Bactrim DS] 800-160 mg tablet 1 tab PO BID Qty: 14 0RF ferrous sulfate 325 mg (65 mg iron) tablet 325 mg PO BID Qty: 120 0RF Rx Instructions: Be sure to take your iron pills on an empty stomach, with orange juice ibuprofen 600 mg tablet 600 mg PO Q8H PRN (Reason: fever or pain) Qty: 30 0RF acetaminophen 500 mg capsule 1,000 mg PO Q6H PRN (Reason: fever or pain) Qty: 30 0RF pantoprazole [Protonix] 40 mg tablet,delayed release (DR/EC) 40 mg PO QDAY Qty: 30 0RF prednisone 20 mg tablet 60 mg PO QDAY 5 Days Qty: 15 0RF Taper: Prednisone Taper 20 mg DAILY for 2 Days and 0 Hour 10 mg DAILY for 2 Days and 0 Hour 5 mg DAILY for 7 Days and 0 Hour ibuprofen [IBU] 800 mg tablet 800 mg PO Q6H PRN (Reason: pain) Qty: 30 0RF meloxicam 7.5 mg tablet 7.5 mg PO QDAY Qty: 10 0RF cephalexin 500 mg capsule 500 mg PO BID Qty: 6 0RF Referrals: Grzegorz Caraballo MD [Primary Care Provider] - In 1 week Problem List Clinical Impression: Acute thoracic back pain Patient/Caregiver Discharge Instructions Education Materials: ED Back Contusion Additional Instructions: Please follow-up with your primary care provider in the next 24 to 48 hours Your x-ray of your thoracic spine was negative for any acute fracture or dislocation For any evidence of worsening signs or symptoms return to the emergency room immediately Print Language: Bulgarian Stand Alone Forms: [employer] Award Info., Patient Portal Info Letter PA/LISANDRO Supervising Physician PA/APPLICATION SYSTEMS ADMINISTRATOR Supervising Physician: Dr. Crandall [facility] Narrative [facility] hospital course: 49-year-old female with no known medical history presents to the emergency room with a chief complaint of thoracic back pain x 1 day Patient is hemodynamically stable and in no apparent distress Physical examination shows tenderness and pain with palpation of the thoracic area of the patient's spine. X-ray of the thoracic spine was completed and was negative for any acute fracture or dislocation Patient was given pain medication with significant improvement to her symptoms Patient was discharged and educated to follow-up with primary care provider in the next 24 to 48 hours and return to the emergency room for any evidence of worsening signs or symptoms Clinical Information Provided by none Medical Records Reviewed None Meds/Rx Considered, not Ordered None Labs/Rad/Tests considered, not Ordered None Chronic Illness/Social Conditions which may negatively complicate care or outcome(s)-explain: None or not applicable EKG EKG not done Lab Interpretation Labs: none Imaging Imaging interpretation: none Medication Administration(s) Medication Administration History Discontinued Medications Ketorolac Tromethamine (Ketorolac Inj 60 Mg/2 Ml Vial) 30 mg IM X1 ONE Stop: 10/09/24 13:14 Last Admin: 10/09/24 13:45 Dose: 30 mg Documented By: OA Diagnosis Differential diagnosis: Thoracic back pain/thoracic fracture Differential dx and/or dx ruled out: Thoracic fracture Most likely dx, and/or detailed dx discussion: Thoracic back pain Dispositon Disposition: Discharge Home
[2024-10-09] MEDS: KETOROLAC INJ 60 MG/2 ML VIAL 30 MG IM (13:45)
== END 2024-10-09 14:33 | disposition home or self-care (01) ==
PROVIDERS: Emergency Provider Emergency Medicine; PCP Family Medicine
DX: M54.6 Pain in thoracic spine (principal)
CPT/HCPCS: 72072; 96372; 99283; J1885

== ENCOUNTER 2024-10-15 13:05 | Emergency (ER) | payer MEDICAID, SELFPAY ==
[2024-10-15 13:05] VITALS: BMI 23.6
[2024-10-15 13:24] VITALS: BP 145/91; PULSE 86; RESP 16; TEMP 36.6; O2SAT 95
--- NOTE | 2024-10-15 13:26 | PD.EDADULT ---
ED General RME/HPI General Chief complaint: Skin/Abscess/Foreign Body Stated complaint: OPEN SORE RIGHT BUTT x 3 DAYS Time Seen by Provider: 10/15/24 13:26 Arrival date/time: 10/15/24 13:05 CC: Right buttock sore spot HPI ongoing for the past 3 days patient admits that she has been walking a lot to get appointments for her psoriasis. Patient denies fever chills chest pain shortness of breath or difficulty breathing. Patient cannot see the site and is concerned once it checked out . No other complaints at this time. No OTC medicines taken Related Data Previous Rx's ?Medication ?Instructions ?Recorded acetaminophen 500 mg capsule 1,000 mg (2 x 500 mg) PO Q6H PRN 04/16/20 fever or pain #30 caps ferrous sulfate 325 mg (65 mg 325 mg PO BID #120 tabs 04/16/20 iron) tablet ibuprofen 600 mg tablet 600 mg PO Q8H PRN fever or pain 04/16/20 #30 tabs sulfamethoxazole 800 1 tab PO BID #14 tabs 04/16/20 mg-trimethoprim 160 mg tablet (Bactrim DS) meloxicam 7.5 mg tablet 7.5 mg PO QDAY #10 tabs 02/13/24 cephalexin 500 mg capsule 500 mg PO BID #6 caps 07/12/24 pantoprazole 40 mg tablet,delayed 40 mg PO QDAY #30 tabs 10/06/24 release (Protonix) IBU 800 mg tablet (ibuprofen) 800 mg PO Q6H PRN pain #30 tabs 10/08/24 Allergies Allergy/AdvReac Type Severity Reaction Status Date / Time No Known Allergies Allergy Verified 10/15/24 13:07 Review of Systems Review of Systems Narrative Review of Systems: GEN: No fever, no chills, no weight loss EYES: No discharge, no visual changes, no pain HEENT: No ear pain, no congestion, no sore throat PULM: No shortness of breath, no cough, no congestion CV: No chest pain, no dyspnea on exertion, no palpitations GI: No nausea, no vomiting, no diarrhea, no pain, no constipation : No frequency, no urgency, no dysuria MUSC/SKEL: No joint pain, no back pain SKIN: No rash, + abrasion PSYCH: No hallucinations, no depression HEME/LYMPH: No easy bleeding or bruising tendencies NEURO: No weakness, no headache Past Medical History Past Medical History CARDIAC: Negative Congestive Heart Failure RESPIRATORY: Negative Chronic Obstructive Pulmonary Disease (COPD) GASTROINTESTINAL: Positive Gastrointestinal Disorders and Ulcer GENITOURINARY: Negative Renal Disease MUSCULOSKELETAL: Positive Arthritis ENDOCRINE: Negative Diabetes Mellitus Type 1 or Diabetes Mellitus Type 2 PSYCHO/SOCIAL: Positive Depression and Anxiety Family History FAMILY HISTORY: Positive Family Psychiatric Problems Surgical History SURGICAL: Positive Abdominal Surgery, Gastric Bypass Surgery, Bowel Surgery and Tubal Ligation Social History SMOKING STATUS: Current every day smoker SUBSTANCE USE: marijuana, amphetamines and methamphetamine ED Exam Narrative Physical exam: [General: Not in any acute distress Head normocephalic HEENT: Within acceptable limits Neck is supple nontender Chest equal chest rise nontender to palpation Respiratory: Clear to auscultation no wheezes crackles or rubs CV: Rate rhythm is regular no murmurs rubs or clicks Abdomen is distended secondary to body habitus soft nontender no masses positive bowel sounds all 4 quadrants Back: No CVA tenderness no spinous process tenderness from cervical spine thoracic and lumbar spine Skin: Small 2 cm circular abraded area on the right buttock, no surrounding erythema edema no ink sedated. Otherwise skin is intact no petechiae rash induration ulceration or crepitus Extremities: Moving all extremity against resistance cap refill less than 2 seconds neurosensory intact Neuro: Awake alert oriented x3 Glascow coma 15 no focal deficits] Course Quality Measures none Vital Signs Vital signs: Vital Signs Temperature 97.8 F 10/15/24 13:24 Pulse Rate 86 10/15/24 13:24 Respiratory Rate 16 10/15/24 13:24 Blood Pressure 145/91 H 10/15/24 13:24 Pulse Oximetry (%) 95 10/15/24 13:24 Oxygen Delivery Method Room Air 10/15/24 13:24 Discharge Plan Plan Patient Disposition: HOME (Self Care) Patient condition on transfer: Stable Prescriptions/Referrals Prescriptions/Med Rec: No Action sulfamethoxazole-trimethoprim [Bactrim DS] 800-160 mg tablet 1 tab PO BID Qty: 14 0RF ferrous sulfate 325 mg (65 mg iron) tablet 325 mg PO BID Qty: 120 0RF Rx Instructions: Be sure to take your iron pills on an empty stomach, with orange juice ibuprofen 600 mg tablet 600 mg PO Q8H PRN (Reason: fever or pain) Qty: 30 0RF acetaminophen 500 mg capsule 1,000 mg PO Q6H PRN (Reason: fever or pain) Qty: 30 0RF pantoprazole [Protonix] 40 mg tablet,delayed release (DR/EC) 40 mg PO QDAY Qty: 30 0RF ibuprofen [IBU] 800 mg tablet 800 mg PO Q6H PRN (Reason: pain) Qty: 30 0RF meloxicam 7.5 mg tablet 7.5 mg PO QDAY Qty: 10 0RF cephalexin 500 mg capsule 500 mg PO BID Qty: 6 0RF Referrals: Grzegorz Caraballo MD [Physician, Family Practice] - In 1 week Problem List Clinical Impression: Abrasion of buttock Patient/Caregiver Discharge Instructions Other Activity Instructions:: Take Tylenol for pain, keep that site covered under your underwear to avoid further abrasions. If there is worsening of symptoms or surrounding redness or pus return to the emergency room for reevaluation. Education Materials: ED Abrasions Print Language: Chinese Stand Alone Forms: [employer] Award Info., Work/School Release, Patient Portal Info Letter ELVA/LISANDRO Supervising Physician ELVA/LISANDRO Supervising Physician: Juan Alberto Beltran ENP [facility] Clinical Information Provided by patient Medical Records Reviewed [facility] Chronic Illness/Social Conditions which may negatively complicate care or outcome(s)-explain: None or not applicable EKG EKG not done Lab Interpretation Labs: none Imaging Imaging interpretation: none Medication Administration(s) none Diagnosis Differential diagnosis: Abrasion, cellulitis, abscess Differential dx and/or dx ruled out: Abrasion. I suspect this is secondary to underwear line abrading the skin at that site after walking for long period of time over the past 3 days. Dispositon Disposition: Discharge Home
== END 2024-10-15 13:31 | disposition home or self-care (01) ==
LOC: SERX 13:35
PROVIDERS: Emergency Provider Emergency Medicine; PCP Family Medicine
DX: S30.810A Abrasion of lower back and pelvis, initial encounter (principal); X58.XXXA Exposure to other specified factors, initial encounter; Y93.9 Activity, unspecified; Y92.9 Unspecified place or not applicable
CPT/HCPCS: 99281

== ENCOUNTER 2024-10-20 07:33 | Emergency (ER) | payer MEDICAID, SELFPAY ==
[2024-10-20 07:37] VITALS: PULSE 84; RESP 16; O2SAT 99; BMI 23.6
[2024-10-20 07:43] VITALS: BP 157/107; PULSE 87; RESP 18; TEMP 36.7; O2SAT 100
--- NOTE | 2024-10-20 07:46 | EKG_ITS ---
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
--- NOTE | 2024-10-20 07:58 | PD.EDABDPN ---
ED Abdominal Pain RME/HPI General Chief Complaint: Abdominal Pain Stated complaint: ABDOMINAL PAIN Time seen by provider: 10/20/24 07:46 Arrival date/time: 10/20/24 07:33 Limitations: no limitations RME / HPI RME / HPI narrative: 49-year-old female with a history of surgery for gastric ulcer 9 years ago who takes Protonix routinely ate a cinnamon roll this morning and had a cigarette with onset of midepigastric abdominal pain which she states is severe. The patient is still grimacing from the pain. No history of nausea or vomiting fever or chills. No dysuria. MD complaint: abdominal pain Onset (ago): minute(s) Consistency: constant Location: epigastric Severity: severe Severity scale (1-10): 10 Quality: cramping and sharp Radiation: none Migration to: epigastric Relieving factors: nothing Exacerbating factors: eating Associated symptoms: denies other symptoms Related Data Previous Rx's ?Medication ?Instructions ?Recorded acetaminophen 500 mg capsule 1,000 mg (2 x 500 mg) PO Q6H PRN 04/16/20 fever or pain #30 caps ferrous sulfate 325 mg (65 mg 325 mg PO BID #120 tabs 04/16/20 iron) tablet ibuprofen 600 mg tablet 600 mg PO Q8H PRN fever or pain 04/16/20 #30 tabs sulfamethoxazole 800 1 tab PO BID #14 tabs 04/16/20 mg-trimethoprim 160 mg tablet (Bactrim DS) meloxicam 7.5 mg tablet 7.5 mg PO QDAY #10 tabs 02/13/24 cephalexin 500 mg capsule 500 mg PO BID #6 caps 07/12/24 pantoprazole 40 mg tablet,delayed 40 mg PO QDAY #30 tabs 10/06/24 release (Protonix) IBU 800 mg tablet (ibuprofen) 800 mg PO Q6H PRN pain #30 tabs 10/08/24 Allergies Allergy/AdvReac Type Severity Reaction Status Date / Time No Known Allergies Allergy Verified 10/15/24 13:07 Review of Systems Review of Systems Systems Reviewed: All systems reviewed, normal except as documented Past Medical History Past Medical History CARDIAC: Negative Congestive Heart Failure RESPIRATORY: Negative Chronic Obstructive Pulmonary Disease (COPD) GASTROINTESTINAL: Positive Gastrointestinal Disorders and Ulcer GENITOURINARY: Negative Renal Disease MUSCULOSKELETAL: Positive Arthritis ENDOCRINE: Negative Diabetes Mellitus Type 1 or Diabetes Mellitus Type 2 PSYCHO/SOCIAL: Positive Depression and Anxiety Family History FAMILY HISTORY: Positive Family Psychiatric Problems Surgical History SURGICAL: Positive Abdominal Surgery, Gastric Bypass Surgery, Bowel Surgery and Tubal Ligation Social History SMOKING STATUS: Current some day smoker SUBSTANCE USE: marijuana, amphetamines and methamphetamine ED Exam General Limitations: Present no limitations General appearance: Present alert and in no apparent distress Head Head exam: Present atraumatic Eye Eye exam: Present normal appearance, PERRL and EOMI ENT ENT exam: Present normal exam, normal oropharynx and mucous membranes moist Neck Neck exam: Present normal inspection, full ROM and trachea midline Chest Chest inspection: Present normal inspection and symmetric chest wall rise Respiratory Respiratory exam: Present normal lung sounds bilaterally Cardiovascular Cardiovascular exam: Present regular rate, normal rhythm and normal heart sounds Abdominal Exam Abdominal exam: Present soft, tenderness and diminished bowel sounds Abdominal tenderness: Present epigastrium Rectal Exam Rectal exam: Present deferred Extremities Exam Extremities exam: Present normal inspection and full ROM Back Exam Back exam: Present normal inspection and full ROM Neurological Exam Neurological exam: Present alert, oriented X3 and CN II-XII intact Psychiatric Psychiatric exam: Present normal affect and normal mood Skin Skin exam: Present warm, dry, intact and normal color Course Quality Measures none Orders Category Date Time Status Road Conductor STAT Care 10/20/24 07:57 Completed Continuous Pulse Oximetry STAT Care 10/20/24 07:57 Completed EKG (ED ONLY) *Do not use* NOW Care 10/20/24 07:46 Completed Insert IV STAT Care 10/20/24 07:57 Completed NPO STAT Care 10/20/24 07:[address] abdomen pelvis wo con Stat Exams 10/20/24 07:57 Completed EKG (ED Only) Stat Exams 10/20/24 07:46 Draft CBC Stat Lab 10/20/24 08:20 Completed Comprehensive Metabolic Panel Stat Lab 10/20/24 08:20 Completed Magnesium Stat Lab 10/20/24 08:20 Completed Prothrombin Time with INR Stat Lab 10/20/24 08:20 Completed Urinalysis Stat Lab 10/20/24 09:08 Completed Morphine* Inj Med 10/20/24 11:14 Discontinued 2 mg IVP X1 ONE Morphine* Inj Med 10/20/24 07:56 Discontinued 4 mg IVP X1 ONE Ondansetron Inj [Zofran Inj] Med 10/20/24 07:57 Discontinued 4 mg IVP X1 ONE Ondansetron Inj [Zofran Inj] Med 10/20/24 11:20 Discontinued 4 mg IVP X1 ONE Pantoprazole Inj [Protonix Inj] Med 10/20/24 07:56 Discontinued 40 mg IVP X1 ONE Sodium Chloride 0.9% 1000 ml [Ns] 1,000 ml Med 10/20/24 07:56 Discontinued IV 999 mls/hr Vital Signs Vital signs: Vital Signs Temperature 98.1 F 10/20/24 07:43 Pulse Rate 87 10/20/24 07:43 Respiratory Rate 18 10/20/24 07:43 Blood Pressure 157/107 H 10/20/24 07:43 Pulse Oximetry (%) 100 10/20/24 07:43 Oxygen Delivery Method Room Air 10/20/24 07:43 Abdominal Pain MDM MDM Narrative MDM Narrative:: Angelia Arreola am scribing for and in the presence of Dr. Samuels. Patient data External records reviewed:: [facility] previous records (I reviewed ED visit on 10/15/2024. ) Clinical information provided by:: patient Social determinants that could affect healthcare access:: none Patient has the following chronic illnesses:: No chronic medical hx reported How is presenting disease/condition affected by chronic disease/condition?: no chronic disease Evaluation data The following diagnostics were reviewed and interpreted by me:: lab results, radiology exam(s) and EKG tracing(s) (EKG @ 08:00 AM, NSR, rate 71, no acute ischemic changes, no STEMI. ) Lab and/or radiology exams considered but not ordered:: None Interpretation Summary: Ordering Physician: Farooq Samuels MD Date of Service: 10/20/24 Procedure(s): CT abdomen pelvis wo con Accession Number(s): [id number] cc: Farooq Samuels MD; Grzegorz Caraballo MD; Teddy Quiroz MD~ Examination: CT abdomen and pelvis without contrast. Coronal 3-D reconstructions. Sagittal 2-D reconstructions. Date and time of exam:October 20, 2024, 0810 hours, comparison October 06, 2024 INDICATIONS: Onset mid abdominal pain today CTDI: vol (mGy): 8.81 DLP: (mGycm): 496 Technique: Axial images of the abdomen have been obtained, 3 mm slice thickness Intravenous contrast material has not been administered. Low dose protocols were performed. One or more of the following dose reduction techniques were used; automated exposure control, adjustment of the mA and/or KV according to patient size, use of iterative reconstruction technique. Findings: No focal liver or splenic lesions Absent gallbladder No pancreatic or adrenal mass Mild renal parenchymal scar formation No renal or ureteral calculi, no hydronephrosis Aorta is not enlarged No pericecal inflammatory change No bowel obstruction Minimal fluid distended small bowel loops No diverticulitis Anteverted uterus, no pelvic mass Bladder intact Mild osteopenia IMPRESSION: Mild renal parenchymal scar formation, no renal or ureteral calculi, no hydronephrosis No CT findings of appendicitis bowel obstruction or diverticulitis Mild small bowel ileus Dictated By: Teddy Quiroz MD Signed By: <Electronically signed by Teddy Quiroz MD in OV> 10/20/24 0939 Medications / Prescriptions Medications or Prescriptions considered but not ordered:: None Medication administrations:: Medication Administration History Discontinued Medications Sodium Chloride (Ns) 1,000 mls @ 999 mls/hr IV .Q1H1M ONE Stop: 10/20/24 08:56 Last Infusion: 10/20/24 09:22 Dose: Infused Documented By: Admin: 10/20/24 08:21 Dose: 999 mls/hr Documented By: VAN Morphine Sulfate (Morphine Sulf Inj 4 Mg/Ml Vial) 4 mg IVP X1 ONE Stop: 10/20/24 07:57 Last Admin: 10/20/24 08:27 Dose: 4 mg Documented By: VAN Morphine Sulfate (Morphine Sulf Inj 4 Mg/Ml Vial) 2 mg IVP X1 ONE Stop: 10/20/24 11:15 Last Admin: 10/20/24 11:41 Dose: 2 mg Documented By: VAN Ondansetron HCl (Ondansetron Inj 2 Mg/Ml Inj 2 Ml) 4 mg IVP X1 ONE Stop: 10/20/24 07:58 Last Admin: 10/20/24 08:25 Dose: 4 mg Documented By: VAN Ondansetron HCl (Ondansetron Inj 2 Mg/Ml Inj 2 Ml) 4 mg IVP X1 ONE; Protocol Stop: 10/20/24 11:21 Last Admin: 10/20/24 11:42 Dose: 4 mg Documented By: VAN Pantoprazole Sodium (Pantoprazole Inj 40 Mg Vial) 40 mg IVP X1 ONE Stop: 10/20/24 07:57 Last Admin: 10/20/24 08:22 Dose: 40 mg Documented By: DB See above Consultations Consultation(s) initiated? (list below): No Diagnosis Differential diagnosis abdominal pain: abdominal pain, calculus of kidney, constipation and gastroenteritis Most likely diagnosis given after review of the tests above:: Abdominal pain Admission Indicated Admission indicated?: not indicated Admission Request Was there a request for admission?: No Disposition Plan Disposition Plan: Discharge Discharge Attestation Discharge Attestation: The patient and all family members were given an opportunity to ask questions and understood the discharge instructions. Discharge instructions specifically effects, indications for sooner follow up or return to the emergency department, and the expected course of current diagnosis. Patient condition: Stable Discharge Plan Plan Patient Disposition: HOME (Self Care) Patient condition on transfer: Stable Prescriptions/Referrals Prescriptions/Med Rec: No Action sulfamethoxazole-trimethoprim [Bactrim DS] 800-160 mg tablet 1 tab PO BID Qty: 14 0RF ferrous sulfate 325 mg (65 mg iron) tablet 325 mg PO BID Qty: 120 0RF Rx Instructions: Be sure to take your iron pills on an empty stomach, with orange juice ibuprofen 600 mg tablet 600 mg PO Q8H PRN (Reason: fever or pain) Qty: 30 0RF acetaminophen 500 mg capsule 1,000 mg PO Q6H PRN (Reason: fever or pain) Qty: 30 0RF pantoprazole [Protonix] 40 mg tablet,delayed release (DR/EC) 40 mg PO QDAY Qty: 30 0RF ibuprofen [IBU] 800 mg tablet 800 mg PO Q6H PRN (Reason: pain) Qty: 30 0RF meloxicam 7.5 mg tablet 7.5 mg PO QDAY Qty: 10 0RF cephalexin 500 mg capsule 500 mg PO BID Qty: 6 0RF Referrals: Grzegorz Caraballo MD [Primary Care Provider, Family Practice] - In 1 week Problem List Clinical Impression: Abdominal pain Patient/Caregiver Discharge Instructions Discharge Activity: activity as tolerated Education Materials: Abdominal Pain Additional Instructions: Continue your usual medications. Be careful to not smoke, drink. Follow-up with your doctor in 3 to 4 days or as scheduled. Print Language: [place] Leonean Stand Alone Forms: [facility] [employer] Info., Patient Portal Info Letter
[2024-10-20 07:59] VITALS: PULSE 88
[2024-10-20] MEDS: SODIUM CHLORIDE 0.9% 1000 ML 1,000 ML 999 ML IV (08:21)
[2024-10-20] MEDS: ONDANSETRON INJ 2 MG/ML INJ 2 ML 4 MG IVP ×2 (08:25→11:42)
[2024-10-20] MEDS: MORPHINE SULF INJ 4 MG/ML VIAL IVP (08:27)
[2024-10-20 08:40] LABS: Basophils # (Auto) 0.0 Thou/mm3 (0.0-0.2); Basophils % (Auto) 1 % (0-2.5); Eosinophils # (Auto) 0.1 Thou/mm3 (0.0-0.5); Eosinophils % (Auto) 1 % (0-10); Hematocrit 49.7 % (36.0-46.0); Hemoglobin 16.6 g/dL (12.0-16.0); Immature Granulocytes Auto 0.02 Thou/mm3 (0.00-0.00); Lymphocytes # (Auto) 1.8 Thou/mm3 (1.0-4.8); Lymphocytes % (Auto) 28 % (10-50); Mean Corpuscular HGB Conc 33.4 g/dl (31.0-37.0); Mean Corpuscular Hemoglobin 29.9 pg (25.0-35.0); Mean Corpuscular Volume 89 fL (80-100); Monocytes # (Auto) 0.4 Thou/mm3 (0.0-0.8); Monocytes % (Auto) 6 % (0-12); Neutrophils # (Auto) 4.0 Thou/mm3 (1.8-7.7); Neutrophils % (Auto) 64 % (37-80); Nucleated Red Blood Cell # 0.00 Thou/mm3 (0.00-0.00); Nucleated Red Blood Cell % 0 /100 WBC (0); Platelet Count 261 Thou/mm3 (140-440); RDW Standard Deviation 43.2 fL (36.4-46.3); Red Blood Count 5.56 Miln/mm3 (4.00-5.20); White Blood Count 6.3 Thou/mm3 (3.6-11.0)
[2024-10-20 08:52] LABS: INR 1.0 (0.9-1.3); Prothrombin Time 10.5 Seconds (9.0-12.2)
[2024-10-20 08:57] LABS: Alanine Aminotransferase 40 U/L (10-49); Albumin, Serum 4.8 gm/dL (3.5-5.0); Albumin/Globulin Ratio 2.0 (1.2-2.2); Alkaline Phosphatase 75 U/L (46-116); Anion Gap 8 (7-16); Aspartate Amino Transferase 93 U/L (0-34); BUN/Creatinine Ratio 13 Ratio (12-20); Bilirubin,Total 0.5 mg/dL (0.3-1.2); Blood Urea Nitrogen 10 mg/dL (9-23); Calcium 10.1 mg/dL (8.3-10.6); Calcium (Corrected) 10.1 mg/dL (8.5-10.1); Carbon Dioxide 26.8 mMol/L (20.0-31.0); Chloride 107 mMol/L (98-107); Creatinine (Component) 0.8 mg/dL (0.6-1.3); Estimated Creatinine Clearance 85.8 mL/min (>60); Globulin 2.4 gm/dL (2.3-3.5); Glucose 63 mg/dL (74-106); Magnesium 2.1 mg/dL (1.6-2.6); Osmolality,Calculated 280 (275-295); Potassium 3.4 mMol/L (3.4-5.1); Sodium 142 mMol/L (136-145); Total Protein 7.2 gm/dL (5.7-8.2); eGFR > 60 See Note
[2024-10-20 09:22] LABS: Collection Type, Urine Clean Catch; RBC,Urine 0 /hpf (0-3); WBC,Urine 0 /hpf (0-5)
[2024-10-20 09:31] LABS: Bacteria,Urine Rare; Bilirubin,Urine Negative (Negative); Blood,Urine Negative (Negative); Clarity,Urine Clear (Clear/Hazy); Color,Urine Lt-Yellow (Lt Yel-Yel); Glucose, Urine Negative (Negative); Hyaline Casts,Urine < 1 /hpf (0-1); Ketones,Urine Negative (Negative); Leukocyte Esterase,Urine Negative (Negative); Nitrite,Urine Negative (Negative); PH,Urine 6.5 (5.0-7.0); Protein,Urine Negative (Neg - Trace); Specific Gravity,Urine 1.012 (1.001-1.035); Squamous Epithelial Cell,Urine 2 /hpf (0-5); Urobilinogen,Urine Negative mg/dL (0.0-1.0)
[2024-10-20 10:38] VITALS: BP 157/109; PULSE 66; RESP 18; TEMP 37.1; O2SAT 96
[2024-10-20] MEDS: MORPHINE SULF INJ 4 MG/ML VIAL 2 MG IVP (11:41)
[2024-10-20 12:17] VITALS: BP 134/95; PULSE 65; RESP 15; TEMP 36.8; O2SAT 96
[2024-10-20 12:50] VITALS: BP 124/90; PULSE 87; RESP 16; TEMP 36.7; O2SAT 99
== END 2024-10-20 12:50 | disposition home or self-care (01) ==
PROVIDERS: Emergency Provider Family Medicine; PCP Family Medicine
DX: K56.7 Ileus, unspecified (principal); N28.89 Other specified disorders of kidney and ureter
CPT/HCPCS: 36415; 74176; 80053; 81001; 83735; 85025; 85610; 93005; 99284; J2270; J2405; J2470; J7030

== ENCOUNTER 2024-11-05 09:32 | Emergency (ER) | payer MEDICAID, SELFPAY ==
[2024-11-05 09:51] VITALS: BP 134/92; PULSE 70; RESP 16; TEMP 36.8; O2SAT 97; BMI 23.6
--- NOTE | 2024-11-05 10:03 | PD.EDBACK ---
ED Back Injury Pain RME/HPI General Chief Complaint: Back Pain/Injury Stated Complaint: Lower back pain, nausea Time Seen by Provider: 11/05/24 09:47 Arrival date/time: 11/05/24 09:32 Limitations: no limitations RME / HPI RME / HPI Narrative: DR. JOSE SINGH ED EVALUATION: 49-year-old female with history of chronic back pain presents to the Emergency Department with severe lower back pain radiating down the right leg. She has tenderness to palpation over the left and right lateral hips, with pain exacerbated by extension of the right leg. She reports associated nausea but denies numbness, tingling, dysuria, fall, or trauma. Pain began after overexerting herself yesterday, though she denies heavy lifting or specific injury. Related Data Previous Rx's ?Medication ?Instructions ?Recorded acetaminophen 500 mg capsule 1,000 mg (2 x 500 mg) PO Q6H PRN 04/16/20 fever or pain #30 caps ferrous sulfate 325 mg (65 mg 325 mg PO BID #120 tabs 04/16/20 iron) tablet ibuprofen 600 mg tablet 600 mg PO Q8H PRN fever or pain 04/16/20 #30 tabs sulfamethoxazole 800 1 tab PO BID #14 tabs 04/16/20 mg-trimethoprim 160 mg tablet (Bactrim DS) meloxicam 7.5 mg tablet 7.5 mg PO QDAY #10 tabs 02/13/24 cephalexin 500 mg capsule 500 mg PO BID #6 caps 07/12/24 pantoprazole 40 mg tablet,delayed 40 mg PO QDAY #30 tabs 10/06/24 release (Protonix) IBU 800 mg tablet (ibuprofen) 800 mg PO Q6H PRN pain #30 tabs 10/08/24 ibuprofen 600 mg tablet 600 mg PO Q8H PRN pain #10 tabs 11/05/24 lidocaine 4 % topical patch 1 patch topical QDAY PRN pain #6 ea 11/05/24 ondansetron 4 mg disintegrating 4 mg PO Q12H PRN nausea and 11/05/24 tablet vomiting #4 tabs Allergies Allergy/AdvReac Type Severity Reaction Status Date / Time No Known Allergies Allergy Verified 11/05/24 09:36 Review of Systems Review of Systems Systems Reviewed: All systems reviewed, normal except as documented Past Medical History Past Medical History GASTROINTESTINAL: Positive Gastrointestinal Disorders and Ulcer MUSCULOSKELETAL: Positive Arthritis PSYCHO/SOCIAL: Positive Depression and Anxiety Family History FAMILY HISTORY: Positive Family Psychiatric Problems Surgical History SURGICAL: Positive Abdominal Surgery, Gastric Bypass Surgery, Bowel Surgery and Tubal Ligation Social History SMOKING STATUS: Current every day smoker SUBSTANCE USE: marijuana, amphetamines and methamphetamine ED Exam General Limitations: Present no limitations General appearance: Present alert and in no apparent distress Head Head exam: Present atraumatic, normocephalic and normal inspection Eye Eye exam: Present normal appearance, PERRL and EOMI ENT ENT exam: Present normal exam, normal oropharynx and mucous membranes moist Neck Neck exam: Present normal inspection, full ROM and trachea midline Chest Chest inspection: Present normal inspection and symmetric chest wall rise Respiratory Respiratory exam: Present normal lung sounds bilaterally Cardiovascular Cardiovascular exam: Present regular rate, normal rhythm and normal heart sounds Abdominal Exam Abdominal exam: Present soft and normal bowel sounds Extremities Exam Extremities exam: Present other (Tenderness to palpation over the left and right lateral hips, with pain exacerbated by extension of the right leg and radiation down the right leg.) Back Exam Back exam: Present normal inspection Neurological Exam Neurological exam: Present alert, oriented X3 and CN II-XII intact Psychiatric Psychiatric exam: Present normal affect and normal mood Skin Skin exam: Present warm, dry, intact and normal color Course Quality Measures none Orders Category Date Time Status Ketorolac Inj [Toradol Inj] Med 11/05/24 10:03 Discontinued 15 mg IM X1 ONE Lidocaine 5% Patch Med 11/05/24 10:03 Discontinued 1 patch TOP X1 ONE Ondansetron Odt [Zofran Odt] Med 11/05/24 10:03 Discontinued 4 mg PO X1 ONE Vital Signs Vital signs: Vital Signs Temperature 98.2 F 11/05/24 09:51 Pulse Rate 70 11/05/24 09:51 Respiratory Rate 16 11/05/24 09:51 Blood Pressure 134/92 H 11/05/24 09:51 Pulse Oximetry (%) 97 11/05/24 09:51 Oxygen Delivery Method Room Air 11/05/24 09:51 Back Pain / Injury MDM Narrative MDM Narrative:: Patient is a 49-year-old female that is in emerged from with concerns for hip pain after cleaning the group home earlier yesterday. Vital signs and exam as listed. Patient's pain radiates down her right leg with extension of her leg concerning for sciatic nerve pain. Patient without any saddle anesthesia, no urinary nor bowel incontinence, patient has intact gluteal squeeze, less likely cord compression at this time. Patient without any sick symptoms to associate with possible malignancy or spinal epidural abscess. Patient ambulating without assistance. No history of IV drug use. Will proceed with treatment for symptom relief and likely discharge home with close return precautions. Patient's follow-up with your primary doctor within 1 to 2 days return immediately if worsening symptoms or new symptoms of concern Deepti Arreola am scribing for and in the presence of Dr. Rahman. Patient data External records reviewed:: [facility] previous records Clinical information provided by:: patient Social determinants that could affect healthcare access:: none Patient has the following chronic illnesses:: Chronic back pain How is presenting disease/condition affected by chronic disease/condition?: caused by Evaluation data The following diagnostics were reviewed and interpreted by me:: other (specify) (none) Lab and/or radiology exams considered but not ordered:: none Interpretation Summary: See MDM narrative above. Medications / Prescriptions Medications or Prescriptions considered but not ordered:: none Medication administrations:: Medication Administration History Discontinued Medications Ketorolac Tromethamine (Ketorolac Inj 30 Mg/Ml Vial) 15 mg IM X1 ONE Stop: 11/05/24 10:04 Lidocaine (Lidocaine 5% 1 Patch) 1 patch TOP X1 ONE; Protocol Stop: 11/05/24 10:04 Ondansetron HCl (Ondansetron Odt 4 Mg Tabrap) 4 mg PO X1 ONE; Protocol Stop: 11/05/24 10:04 see above if any Consultations Consultation(s) initiated? (list below): No Diagnosis Differential diagnosis back pain/injury: other (Lumbar radiculopathy/sciatica, musculoskeletal strain, and hip pain syndrome.) Most likely diagnosis given after review of the tests above:: Right sciatic nerve pain Admission Indicated Admission indicated?: not indicated Admission Request Was there a request for admission?: No Disposition Plan Disposition Plan: Discharge Discharge Attestation Discharge Attestation: The patient and all family members were given an opportunity to ask questions and understood the discharge instructions. Discharge instructions specifically effects, indications for sooner follow up or return to the emergency department, and the expected course of current diagnosis. Patient condition: Stable Discharge Plan Plan Patient Disposition: HOME (Self Care) Prescriptions/Referrals Prescriptions/Med Rec: New ondansetron 4 mg tablet,disintegrating 4 mg PO Q12H PRN (Reason: nausea and vomiting) Qty: 4 0RF lidocaine 4 % adhesive patch,medicated 1 patch topical QDAY PRN (Reason: pain) Qty: 6 0RF ibuprofen 600 mg tablet 600 mg PO Q8H PRN (Reason: pain) Qty: 10 0RF No Action sulfamethoxazole-trimethoprim [Bactrim DS] 800-160 mg tablet 1 tab PO BID Qty: 14 0RF ferrous sulfate 325 mg (65 mg iron) tablet 325 mg PO BID Qty: 120 0RF Rx Instructions: Be sure to take your iron pills on an empty stomach, with orange juice ibuprofen 600 mg tablet 600 mg PO Q8H PRN (Reason: fever or pain) Qty: 30 0RF acetaminophen 500 mg capsule 1,000 mg PO Q6H PRN (Reason: fever or pain) Qty: 30 0RF pantoprazole [Protonix] 40 mg tablet,delayed release (DR/EC) 40 mg PO QDAY Qty: 30 0RF ibuprofen [IBU] 800 mg tablet 800 mg PO Q6H PRN (Reason: pain) Qty: 30 0RF meloxicam 7.5 mg tablet 7.5 mg PO QDAY Qty: 10 0RF cephalexin 500 mg capsule 500 mg PO BID Qty: 6 0RF Problem List Clinical Impression: Right sciatic nerve pain Patient/Caregiver Discharge Instructions Education Materials: ED Sciatica Additional Instructions: Please continue to do the stretches of your lower hip as we discussed today. You can apply lidocaine patches as prescribed, use ibuprofen and Tylenol for symptom relief at home. Important that you stretch before and after any increased activity that is physical. Please follow-up with your family doctor within 1 to 2 days return immediately if you have worsening symptoms or new symptoms or concern. Print Language: Kiswahili Stand Alone Forms: [facility] Info., Patient Portal Info Letter
[2024-11-05] MEDS: ONDANSETRON ODT 4 MG TABRAP PO (10:15)
[2024-11-05] MEDS: LIDOCAINE 5% 1 PATCH TOP (10:15)
[2024-11-05] MEDS: KETOROLAC INJ 30 MG/ML VIAL 15 MG IM (10:17)
== END 2024-11-05 10:47 | disposition home or self-care (01) ==
LOC: SERX 10:15
PROVIDERS: Emergency Provider Emergency Medicine; PCP Nurse Practitioner Women's Health
DX: M54.41 Lumbago with sciatica, right side (principal)
CPT/HCPCS: 96372; 99283; J1885; J3490; Q0162

== ENCOUNTER 2024-12-02 13:18 | Emergency (ER) | payer MEDICAID, SELFPAY ==
[2024-12-02 13:27] VITALS: BP 133/93; PULSE 96; RESP 18; TEMP 37; O2SAT 96; BMI 24.7
--- NOTE | 2024-12-02 13:40 | XR_ITS ---
Examination: CT abdomen and pelvis without contrast. Coronal 3-D reconstructions. Sagittal 2-D reconstructions. Date and time of exam: December 02, 2024, 1413 hours INDICATIONS: Abdominal pain and diarrhea today CTDI: vol (mGy): 8.53 DLP: (mGycm): 444 Technique: Axial images of the abdomen have been obtained, 3 mm slice thickness Intravenous contrast material has not been administered. Low dose protocols were performed. One or more of the following dose reduction techniques were used; automated exposure control, adjustment of the mA and/or KV according to patient size, use of iterative reconstruction technique. Findings: No focal liver or splenic lesion Gastric sutures Absent gallbladder No pancreatic mass No renal or ureteral calculi, no hydronephrosis Aorta normal size Moderate to large amounts of stool throughout the colon No nonspecific colitis pattern No pericecal inflammatory change No diverticulitis No pelvic mass Contracted urinary bladder IMPRESSION: No renal or ureteral calculi, no hydronephrosis No CT findings of bowel obstruction or diverticulitis No nonspecific colitis or enteritis pattern
[2024-12-02] MEDS: ONDANSETRON ODT 4 MG TABRAP PO (13:48)
[2024-12-02] MEDS: KETOROLAC INJ 30 MG/ML VIAL IM (13:48)
[2024-12-02 14:16] LABS: Basophils # (Auto) 0.1 Thou/mm3 (0.0-0.2); Basophils % (Auto) 0 % (0-2.5); Eosinophils # (Auto) 0.1 Thou/mm3 (0.0-0.5); Eosinophils % (Auto) 1 % (0-10); Hematocrit 42.0 % (36.0-46.0); Hemoglobin 13.8 g/dL (12.0-16.0); Immature Granulocytes Auto 0.03 Thou/mm3 (0.00-0.00); Lymphocytes # (Auto) 3.1 Thou/mm3 (1.0-4.8); Lymphocytes % (Auto) 26 % (10-50); Mean Corpuscular HGB Conc 32.9 g/dl (31.0-37.0); Mean Corpuscular Hemoglobin 30.0 pg (25.0-35.0); Mean Corpuscular Volume 91 fL (80-100); Monocytes # (Auto) 0.7 Thou/mm3 (0.0-0.8); Monocytes % (Auto) 6 % (0-12); Neutrophils # (Auto) 7.8 Thou/mm3 (1.8-7.7); Neutrophils % (Auto) 66 % (37-80); Nucleated Red Blood Cell # 0.00 Thou/mm3 (0.00-0.00); Nucleated Red Blood Cell % 0 /100 WBC (0); Platelet Count 259 Thou/mm3 (140-440); RDW Standard Deviation 46.4 fL (36.4-46.3); Red Blood Count 4.60 Miln/mm3 (4.00-5.20); White Blood Count 11.7 Thou/mm3 (3.6-11.0)
[2024-12-02 14:32] LABS: Alanine Aminotransferase 28 U/L (10-49); Albumin, Serum 4.6 gm/dL (3.5-5.0); Albumin/Globulin Ratio 2.2 (1.2-2.2); Alkaline Phosphatase 60 U/L (46-116); Anion Gap 7 (7-16); Aspartate Amino Transferase 29 U/L (0-34); BUN/Creatinine Ratio 15 Ratio (12-20); Bilirubin,Total 0.4 mg/dL (0.3-1.2); Blood Urea Nitrogen 12 mg/dL (9-23); Calcium 9.9 mg/dL (8.3-10.6); Calcium (Corrected) 9.9 mg/dL (8.5-10.1); Carbon Dioxide 26.3 mMol/L (20.0-31.0); Chloride 113 mMol/L (98-107); Creatinine (Component) 0.8 mg/dL (0.6-1.3); Estimated Creatinine Clearance 85.8 mL/min (>60); Globulin 2.1 gm/dL (2.3-3.5); Glucose 84 mg/dL (74-106); Lipase 45 U/L (12-53); Osmolality,Calculated 289 (275-295); Potassium 3.8 mMol/L (3.4-5.1); Sodium 146 mMol/L (136-145); Total Protein 6.7 gm/dL (5.7-8.2); eGFR > 60 See Note
[2024-12-02 14:35] LABS: Collection Type, Urine Clean Catch
[2024-12-02 14:56] LABS: Bilirubin,Urine 1+ (Negative); Blood,Urine Negative (Negative); Calcium Oxalate Crystals,Urine 2+; Color,Urine Yellow (Lt Yel-Yel); Glucose, Urine Negative (Negative); Ketones,Urine Trace (Negative); Leukocyte Esterase,Urine Positive (Negative); Nitrite,Urine Negative (Negative); PH,Urine 5.5 (5.0-7.0); Protein,Urine Trace (Neg - Trace); RBC,Urine 6 /hpf (0-3); Specific Gravity,Urine 1.040 (1.001-1.035); Squamous Epithelial Cell,Urine 6 /hpf (0-5); Urobilinogen,Urine 4.0 mg/dL (0.0-1.0); WBC,Urine 13 /hpf (0-5)
[2024-12-02 15:14] LABS: Culture Indicated,Urine Yes
[2024-12-02 15:15] LABS: Clarity,Urine Hazy (Clear/Hazy)
--- NOTE | 2024-12-02 16:00 | PC.NURSE ---
PT CALLED INSIDE/OUTSIDE ED LOBBY; NO RESPONSE AT THIS TIME
--- NOTE | 2024-12-02 16:05 | EDNOTE_ITS ---
<Statement entered by Lyn Carter MD - 12/02/24 17:55> As co-signing physician, I was present and available for consult prn. I concur with the plan and care as documented by the midlevel provider. ED Abdominal Pain RME/HPI General Chief Complaint: Abdominal Pain Stated complaint: RLQ ABD PAIN, DIARRHEA Time seen by provider: 12/02/24 13:36 Arrival date/time: 12/02/24 13:18 49-year-old female presents to the emergency department today for complaints of abdominal pain nausea and diarrhea ongoing x 1 day Limitations: no limitations Related Data Previous Rx's ?Medication ?Instructions ?Recorded acetaminophen 500 mg capsule 1,000 mg (2 x 500 mg) PO Q6H PRN 04/16/20 fever or pain #30 caps ferrous sulfate 325 mg (65 mg 325 mg PO BID #120 tabs 04/16/20 iron) tablet ibuprofen 600 mg tablet 600 mg PO Q8H PRN fever or p ain 04/16/20 #30 tabs sulfamethoxazole 800 1 tab PO BID #14 tabs mg-trimethoprim 160 mg tablet (Bactrim DS) meloxicam 7.5 mg tablet 7.5 mg PO QDAY #10 tabs 07/02 cephalexin 500 mg capsule 500 mg PO BID #6 caps pantoprazole 40 mg tablet,delayed 40 mg PO QDAY #30 ta bs 10/06/24 release (Protonix) IBU 800 mg tablet (ibuprofen) 800 mg PO Q6H PRN pain # 30 tabs 10/08/24 ibuprofen 600 mg tablet 600 mg PO Q8H PRN pain #10 t abs 11/05/24 lidocaine 4 % topical patch 1 patch topical QDAY PRN p ain #6 ea 11/05/24 ondansetron 4 mg disintegrating 4 mg PO Q12H PRN nause a and 11/05/24 tablet vomiting #4 tabs Allergies Allergy/AdvReac Type Severity Reaction Status Date / Time No Known Allergies Allergy Verified 11/05/24 09:36 Review of Systems Review of Systems Systems Reviewed: All systems reviewed, normal except as documented Constitutional Constitutional: Reports system reviewed and no additional complaints, except as documented, Denies fever(s) and Denies headache(s) Eyes Eyes: Reports system reviewed and no additional complaints, except as documented and Denies blurry vision ENT Ears, Nose, Mouth, and Throat: Reports system reviewed and no additional complaints, except as documented, Denies headache(s), Denies nasal congestion and Denies nasal discharge Cardiovascular Cardiovascular: Reports system reviewed and no additional complaints, except as documented, Denies chest pain and Denies dyspnea Respiratory Respiratory: Reports system reviewed and no additional complaints, except as documented, Denies chest congestion, Denies cough and Denies dyspnea Gastrointestinal Gastrointestinal: Reports system reviewed and no additional complaints, except as documented, Reports abdominal pain, Reports loose stools and Reports nausea Integumentary/Breasts Skin/Breast: Reports system reviewed and no additional complaints, except as documented and Denies rash Neurologic Neurologic: Reports system reviewed and no additional complaints, except as documented, Reports as per HPI and Denies headache(s) Past Medical History Past Medical History CARDIAC: Negative Congestive Heart Failure RESPIRATORY: Negative Chronic Obstructive Pulmonary Disease (COPD) GASTROINTESTINAL: Positive Gastrointestinal Disorders and Ulcer GENITOURINARY: Negative Renal Disease MUSCULOSKELETAL: Positive Arthritis ENDOCRINE: Negative Diabetes Mellitus Type 1 or Diabetes Mellitus Type 2 PSYCHO/SOCIAL: Positive Depression and Anxiety Family History FAMILY HISTORY: Positive Family Psychiatric Problems Surgical History SURGICAL: Positive Abdominal Surgery, Gastric Bypass Surgery, Bowel Surgery and Tubal Ligation Social History SMOKING STATUS: Current every day smoker SUBSTANCE USE: marijuana, amphetamines and methamphetamine ED Exam General Limitations: Present no limitations General appearance: Present alert and in no apparent distress Head Head exam: Present atraumatic, normocephalic and normal inspection Eye Eye exam: Present normal appearance, PERRL and EOMI; Absent conjunctival injection ENT ENT exam: Present normal exam, normal oropharynx and mucous membranes moist Neck Neck exam: Present normal inspection, full ROM and trachea midline Chest Chest inspection: Present normal inspection and symmetric chest wall rise Respiratory Respiratory exam: Present normal lung sounds bilaterally Cardiovascular Cardiovascular exam: Present regular rate, normal rhythm and normal heart sounds Abdominal Exam Abdominal exam: Present soft, tenderness, normal bowel sounds and tenderness at McBurney's Point; Absent distention, guarding, rebound, rigidity or Wilkerson's sign Abdominal tenderness: Present RLQ; Absent RUQ Extremities Exam Extremities exam: Present normal inspection and full ROM Back Exam Back exam: Present normal inspection and full ROM Neurological Exam Neurological exam: Present alert, oriented X3 and CN II-XII intact Psychiatric Psychiatric exam: Present normal affect and normal mood Skin Skin exam: Present warm, dry, intact and normal color Course Quality Measures none Orders Category Date Time Status CT abdomen pelvis wo con Stat Exams 12/02/24 13:40 Completed CBC Stat Lab 12/02/24 13:45 Completed Comprehensive Metabolic Panel Stat Lab 12/02/24 13:45 Completed Lipase Stat Lab 12/02/24 13:45 Completed UA, C/S IF [Urinalysis, C/S if Indicated] Stat Lab 12/02/24 14:08 Completed Urine Culture Stat Lab 12/02/24 14:08 Received Ketorolac Inj [Toradol Inj] Med 12/02/24 13:39 Discontinued 30 mg IM X1 ONE Ondansetron Odt [Zofran Odt] Med 12/02/24 13:39 Discontinued 4 mg PO X1 ONE Vital Signs Vital signs: Vital Signs Temperature 98.6 F 12/02/24 13:27 Pulse Rate 96 12/02/24 13:27 Respiratory Rate 18 12/02/24 13:27 Blood Pressure 133/93 H 12/02/24 13:27 Pulse Oximetry (%) 96 12/02/24 13:27 Oxygen Delivery Method Room Air 12/02/24 13:27 O2 saturation 96% room air within normal limits Abdominal Pain MDM MDM Narrative MDM Narrative:: 49-year-old female presents to the emergency department today for complaints of abdominal pain nausea and diarrhea ongoing x 1 day On exam patient well-appearing patient is not appear look toxic no acute distress Patient does have mild tenderness to lower abdomen Lab work and imaging obtained No acute emergent findings on lab and imaging Attempted to reevaluate the patient patient appears to elope from the ER Patient data External records reviewed:: [facility] previous records Clinical information provided by:: patient Social determinants that could affect healthcare access:: substance use Patient has the following chronic illnesses:: See history How is presenting disease/condition affected by chronic disease/condition?: uneffected by Evaluation data The following diagnostics were reviewed and interpreted by me:: lab results and radiology exam(s) Lab and/or radiology exams considered but not ordered:: Labs and radiology obtained Interpretation Summary: Reviewed by me Medications / Prescriptions Medications or Prescriptions considered but not ordered:: Given Medication administrations:: Medication Administration History Discontinued Medications Ketorolac Tromethamine (Ketorolac Inj 30 Mg/Ml Vial) 30 mg IM X1 ONE Stop: 12/02/24 13:40 Last Admin: 12/02/24 13:48 Dose: 30 mg Documented By: CATY Ondansetron HCl (Ondansetron Odt 4 Mg Tabrap) 4 mg PO X1 ONE; Protocol Stop: 12/02/24 13:40 Last Admin: 12/02/24 13:48 Dose: 4 mg Documented By: CATY Given Consultations Consultation(s) initiated? (list below): No Diagnosis Differential diagnosis abdominal pain: abdominal pain, acute appendicitis, pancreatitis and small bowel obstruction Most likely diagnosis given after review of the tests above:: Abdominal pain Admission Indicated Admission indicated?: not indicated Admission Request Was there a request for admission?: No Disposition Plan Disposition Plan: Discharge Discharge Attestation Discharge Attestation: The patient and all family members were given an opportunity to ask questions and understood the discharge instructions. Discharge instructions specifically effects, indications for sooner follow up or return to the emergency department, and the expected course of current diagnosis. Patient condition: Stable Discharge Plan Plan Patient Disposition: Elopement Discharge Disposition comment: Stable Prescriptions/Referrals Prescriptions/Med Rec: No Action sulfamethoxazole-trimethoprim [Bactrim DS] 800-160 mg tablet 1 tab PO BID Qty: 14 0RF ferrous sulfate 325 mg (65 mg iron) tablet 325 mg PO BID Qty: 120 0RF Rx Instructions: Be sure to take your iron pills on an empty stomach, with orange juice ibuprofen 600 mg tablet 600 mg PO Q8H PRN (Reason: fever or pain) Qty: 30 0RF acetaminophen 500 mg capsule 1,000 mg PO Q6H PRN (Reason: fever or pain) Qty: 30 0RF pantoprazole [Protonix] 40 mg tablet,delayed release (DR/EC) 40 mg PO QDAY Qty: 30 0RF ibuprofen [IBU] 800 mg tablet 800 mg PO Q6H PRN (Reason: pain) Qty: 30 0RF ondansetron 4 mg tablet,disintegrating 4 mg PO Q12H PRN (Reason: nausea and vomiting) Qty: 4 0RF lidocaine 4 % adhesive patch,medicated 1 patch topical QDAY PRN (Reason: pain) Qty: 6 0RF ibuprofen 600 mg tablet 600 mg PO Q8H PRN (Reason: pain) Qty: 10 0RF meloxicam 7.5 mg tablet 7.5 mg PO QDAY Qty: 10 0RF cephalexin 500 mg capsule 500 mg PO BID Qty: 6 0RF Referrals: Grzegorz Caraballo MD [Primary Care Provider, Family Practice] - In 1 week Problem List Clinical Impression: Abdominal pain Patient/Caregiver Discharge Instructions Print Language: Ukrainian PA/REAGENT TENDER HELPER Supervising Physician PA/REAGENT TENDER HELPER Supervising Physician: Dr. Carter
--- NOTE | 2024-12-02 16:32 | PC.NURSE ---
PT CALLED INSIDE/ OUTSIDE ED LOBBY; NO RESPONSE AT THIS TIME
--- NOTE | 2024-12-02 16:48 | PC.NURSE ---
PT CALLED INSIDE/ OUTSIDE ED LOBBY; NO RESPONSE AT THIS TIME
== END 2024-12-02 16:49 | disposition left against medical advice (07) ==
PROVIDERS: Nurse Practitioner Primary Care; Emergency Provider Emergency Medicine; PCP Family Medicine
DX: R10.9 Unspecified abdominal pain (principal)
CPT/HCPCS: 36415; 74176; 80053; 81001; 81025; 83690; 85025; 87086; 96372; 99282; J1885; Q0162

== ENCOUNTER 2024-12-09 17:45 | Emergency (ER) | payer MEDICAID, SELFPAY ==
[2024-12-09 17:50] VITALS: PULSE 110; RESP 20; O2SAT 97; BMI 24.9
[2024-12-09 17:52] VITALS: BP 141/88; PULSE 94; RESP 19; TEMP 39.3; O2SAT 97
--- NOTE | 2024-12-09 18:00 | EKG_ITS ---
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
--- NOTE | 2024-12-09 18:01 | XR_ITS ---
EXAMINATION: AP chest single view TECHNIQUE: AP portable upright chest single view Date and time: December 09, 2024, 1819 hours, comparison July 12, 2024 INDICATIONS: Sepsis today. FINDINGS: Normal heart size No pneumonia or pulmonary edema. Moderate osteopenia IMPRESSION: No lobar pneumonia
[2024-12-09 18:06] VITALS: PULSE 90; PULSE 94; RESP 16; RESP 96
--- NOTE | 2024-12-09 18:06 | PD.EDFEVER ---
ED Fever RME/HPI General Chief Complaint: Fever Stated Complaint: DIZZINESS,FEVER, Time Seen by Provider: 12/09/24 18:00 Arrival date/time: 12/09/24 17:45 49-year-old female patient who is currently staying in a homeless fpc, came in for evaluation regarding fever. Patient has been having fever since last night, severity moderate associated with bodyaches and joint pains. Patient denies any sore throat denies any cough denies any abdominal pain. Patient received varicella and flu vaccine yesterday. Related Data Previous Rx's ?Medication ?Instructions ?Recorded acetaminophen 500 mg capsule 1,000 mg (2 x 500 mg) PO Q6H PRN 04/16/20 fever or pain #30 caps ferrous sulfate 325 mg (65 mg 325 mg PO BID #120 tabs 04/16/20 iron) tablet ibuprofen 600 mg tablet 600 mg PO Q8H PRN fever or pain 04/16/20 #30 tabs sulfamethoxazole 800 1 tab PO BID #14 tabs 04/16/20 mg-trimethoprim 160 mg tablet (Bactrim DS) meloxicam 7.5 mg tablet 7.5 mg PO QDAY #10 tabs 02/13/24 cephalexin 500 mg capsule 500 mg PO BID #6 caps 07/12/24 pantoprazole 40 mg tablet,delayed 40 mg PO QDAY #30 tabs 10/06/24 release (Protonix) IBU 800 mg tablet (ibuprofen) 800 mg PO Q6H PRN pain #30 tabs 10/08/24 ibuprofen 600 mg tablet 600 mg PO Q8H PRN pain #10 tabs 11/05/24 lidocaine 4 % topical patch 1 patch topical QDAY PRN pain #6 ea 11/05/24 ondansetron 4 mg disintegrating 4 mg PO Q12H PRN nausea and 11/05/24 tablet vomiting #4 tabs ibuprofen 800 mg tablet 800 mg PO Q8H PRN pain #30 tabs 12/09/24 Allergies Allergy/AdvReac Type Severity Reaction Status Date / Time No Known Allergies Allergy Verified 11/05/24 09:36 Review of Systems Review of Systems Narrative Review of Systems: Review of system reviewed and within normal limits except mentioned in HPI Physical Exam Narrative Physical exam: VITAL SIGNS: Reviewed. GENERAL APPEARANCE: Alert and interactive, follows commands, no acute distress, febrile HEAD AND FACE: Non-traumatic. ENT: PERRL, pink conjunctivitis, eyelid no trauma, Mucous membrane moist. NECK: Supple, nontender, no nuchal rigidity. CHEST: No tenderness, no crepitus, no paradoxical movement, no retractions. LUNGS: Clear, well ventilated, symmetric, no rales, no wheezing, no ronchi, no stridor, good breath sounds bilaterally. HEART: Tachycardic, no murmur, no gallops. ABDOMEN: Soft, positive bowel sounds, nondistended, no guarding, nontender, no rebound, no masses, RECTAL: Deferred. GENITAL: Deferred. NEUROLOGICAL: Gross motor function intact sensory function intact, Appropriate for age. MUSCULOSKELETAL: low back nontender, full range of motion. EXTREMITIES: Nontender, full range of motion. SKIN: Color pink, dry, no rash, no lacerations, no abrasions, no contusions. LYMPHATICS: Deferred. Course Quality Measures none Orders Category Date Time Status Coloring Room Man STAT Care 12/09/24 18:00 Active Continuous Pulse Oximetry STAT Care 12/09/24 18:00 Completed EKG (ED ONLY) *Do not use* NOW Care 12/09/24 18:00 Completed In and Out Catheter X1PRN Care 12/09/24 18:00 Active Insert IV NOW Care 12/09/24 18:00 Completed NPO STAT Care 12/09/24 18:00 Active Strict Intake and Output Routine Care 12/09/24 18:00 Ordered EKG (ED Only) Stat Exams 12/09/24 18:00 Draft XR chest 1V Stat Exams 12/09/24 18:01 Completed B-Type Natriuretic Peptide Stat Lab 12/09/24 17:50 Completed Blood Culture (Lab) Stat Lab 12/09/24 18:40 Received CBC Stat Lab 12/09/24 17:50 Completed Comprehensive Metabolic Panel Stat Lab 12/09/24 17:50 Completed LDH (Lactate Dehydrogenase) Stat Lab 12/09/24 17:50 Completed Lactate (Lactic Acid) Stat Lab 12/09/24 17:50 Completed Lactic Acid, 3 HR Stat Lab 12/09/24 21:08 Ordered Lipase Stat Lab 12/09/24 17:50 Completed Magnesium Stat Lab 12/09/24 17:50 Completed Partial Thromboplastin Time Stat Lab 12/09/24 17:50 Completed Phosphorous Stat Lab 12/09/24 17:50 Completed Procalcitonin Stat Lab 12/09/24 17:50 Completed Prothrombin Time with INR Stat Lab 12/09/24 17:50 Completed Troponin I Stat Lab 12/09/24 17:50 Completed Urinalysis, C/S if Indicated Stat Lab 12/09/24 07:23 Completed Acetaminophen Tab [Tylenol ES Tab] Med 12/09/24 18:02 Discontinued 1,000 mg PO X1 ONE Ibuprofen Tab [Motrin Tab] Med 12/09/24 19:11 Discontinued 800 mg PO X1 ONE Ringers Lactated 1000 ml [Lactated Ringers] 1,000 ml Med 12/09/24 18:02 Discontinued IV 999 mls/hr Ringers Lactated 1000 ml [Lactated Ringers] 1,000 ml Med 12/09/24 18:06 Discontinued IV 999 mls/hr Oxygen Delivery NOW RT 12/09/24 18:00 Active Vital Signs Vital signs: Vital Signs Temperature 102.7 F H 12/09/24 17:52 Pulse Rate 94 12/09/24 17:52 Respiratory Rate 19 12/09/24 17:52 Blood Pressure 141/88 H 12/09/24 17:52 Pulse Oximetry (%) 97 12/09/24 17:52 Oxygen Delivery Method Room Air 12/09/24 17:52 Fever MDM Narrative MDM Narrative:: 49-year-old female patient who is currently staying in a homeless fpc, came in for evaluation regarding fever. Patient has been having fever since last night, severity moderate associated with bodyaches and joint pains. Patient denies any sore throat denies any cough denies any abdominal pain. Patient received varicella and flu vaccine yesterday. Sepsis alert was initiated due to fever and tachycardia. Patient's workup came back unremarkable no leukocytosis noted urinalysis no UTI chest x-ray no pneumonia. The only abnormality noted was a lactic acid of 2.2. Patient received 2 L of IV fluids, Tylenol Motrin. Patient is not septic. Prior to discharge patient was noted to be afebrile patient stable for discharge home Patient data External records reviewed:: None Clinical information provided by:: patient Social determinants that could affect healthcare access:: none Patient has the following chronic illnesses:: History of psoriasis How is presenting disease/condition affected by chronic disease/condition?: exacerbated by Evaluation data The following diagnostics were reviewed and interpreted by me:: lab results, radiology exam(s) and EKG tracing(s) Lab and/or radiology exams considered but not ordered:: Stable Interpretation Summary: See results MDM Medications / Prescriptions Medications or Prescriptions considered but not ordered:: None Medication administrations:: Medication Administration History Discontinued Medications Acetaminophen (Acetaminophen 500 Mg Tablet) 1,000 mg PO X1 ONE Stop: 12/09/24 18:03 Last Admin: 12/09/24 18:07 Dose: 1,000 mg Documented By: EF Lactated Ringer's (Lactated Ringers) 1,000 mls @ 999 mls/hr IV .Q1H1M ONE Stop: 12/09/24 19:02 Last Infusion: 12/09/24 19:17 Dose: Infused Documented By: Admin: 12/09/24 18:08 Dose: 999 mls/hr Documented By: EF Lactated Ringer's (Lactated Ringers) 1,000 mls @ 999 mls/hr IV .Q1H1M ONE Stop: 12/09/24 19:06 Last Infusion: 12/09/24 19:18 Dose: Infused Documented By: Admin: 12/09/24 18:16 Dose: 999 mls/hr Documented By: EF Ibuprofen (Ibuprofen Tab 400 Mg Tablet) 800 mg PO X1 ONE Stop: 12/09/24 19:12 Last Admin: 12/09/24 19:28 Dose: 800 mg Documented By: EF IV fluids, IV fluids, Tylenol Consultations Consultation(s) initiated? (list below): No Diagnosis Fever Differential Diagnosis: fever of unknown origin, viral infection and influenza Most likely diagnosis given after review of the tests above:: Post vaccination fever Admission Indicated Admission indicated?: not indicated Admission Request Was there a request for admission?: No Disposition Plan Disposition Plan: Discharge Discharge Attestation Discharge Attestation: The patient was given an opportunity to ask questions and understood the discharge instructions. Discharge instructions specifically effects, indications for sooner follow up or return to the emergency department, and the expected course of current diagnosis. Patient condition: Stable Discharge Plan Plan Patient Disposition: HOME (Self Care) Discharge Disposition comment: Stable Prescriptions/Referrals Prescriptions/Med Rec: New ibuprofen 800 mg tablet 800 mg PO Q8H PRN (Reason: pain) Qty: 30 0RF No Action sulfamethoxazole-trimethoprim [Bactrim DS] 800-160 mg tablet 1 tab PO BID Qty: 14 0RF ferrous sulfate 325 mg (65 mg iron) tablet 325 mg PO BID Qty: 120 0RF Rx Instructions: Be sure to take your iron pills on an empty stomach, with orange juice ibuprofen 600 mg tablet 600 mg PO Q8H PRN (Reason: fever or pain) Qty: 30 0RF acetaminophen 500 mg capsule 1,000 mg PO Q6H PRN (Reason: fever or pain) Qty: 30 0RF pantoprazole [Protonix] 40 mg tablet,delayed release (DR/EC) 40 mg PO QDAY Qty: 30 0RF ibuprofen [IBU] 800 mg tablet 800 mg PO Q6H PRN (Reason: pain) Qty: 30 0RF ondansetron 4 mg tablet,disintegrating 4 mg PO Q12H PRN (Reason: nausea and vomiting) Qty: 4 0RF lidocaine 4 % adhesive patch,medicated 1 patch topical QDAY PRN (Reason: pain) Qty: 6 0RF ibuprofen 600 mg tablet 600 mg PO Q8H PRN (Reason: pain) Qty: 10 0RF meloxicam 7.5 mg tablet 7.5 mg PO QDAY Qty: 10 0RF cephalexin 500 mg capsule 500 mg PO BID Qty: 6 0RF Referrals: Grzegorz Caraballo MD [Primary Care Provider, Family Practice] - In 1 week Problem List Clinical Impression: Fever, postvaccination Patient/Caregiver Discharge Instructions Discharge Activity: activity as tolerated Education Materials: ED FUO Adult Additional Instructions: Thank you for the opportunity for serving you today. You are stable for discharged . You are advised to: Follow-up with your PCP in 1 to 2 days Return to ED for worsening of symptoms Increase oral fluids Take medication as prescribed Print Language: Afghan Stand Alone Forms: [facility] Award Info., Patient Portal Info Letter PA/LISANDRO Supervising Physician ELVA/LISANDRO Supervising Physician: MD Linda
[2024-12-09 18:07] VITALS: TEMP 39.1
[2024-12-09] MEDS: ACETAMINOPHEN 500 MG TABLET 1000 MG PO (18:07)
[2024-12-09] MEDS: RINGERS LACTATED 1000 ML 1,000 ML 999 ML IV ×2 (18:08→18:16)
[2024-12-09 18:11] LABS: Lactate (Lactic Acid) 2.3 mMol/L (0.4-2.0)
[2024-12-09 18:13] LABS: Basophils # (Auto) 0.0 Thou/mm3 (0.0-0.2); Basophils % (Auto) 1 % (0-2.5); Eosinophils # (Auto) 0.2 Thou/mm3 (0.0-0.5); Eosinophils % (Auto) 3 % (0-10); Hematocrit 39.2 % (36.0-46.0); Hemoglobin 12.9 g/dL (12.0-16.0); Immature Granulocytes Auto 0.02 Thou/mm3 (0.00-0.00); Lymphocytes # (Auto) 0.8 Thou/mm3 (1.0-4.8); Lymphocytes % (Auto) 13 % (10-50); Mean Corpuscular HGB Conc 32.9 g/dl (31.0-37.0); Mean Corpuscular Hemoglobin 29.5 pg (25.0-35.0); Mean Corpuscular Volume 90 fL (80-100); Monocytes # (Auto) 0.6 Thou/mm3 (0.0-0.8); Monocytes % (Auto) 9 % (0-12); Neutrophils # (Auto) 4.6 Thou/mm3 (1.8-7.7); Neutrophils % (Auto) 74 % (37-80); Nucleated Red Blood Cell # 0.00 Thou/mm3 (0.00-0.00); Nucleated Red Blood Cell % 0 /100 WBC (0); Platelet Count 191 Thou/mm3 (140-440); RDW Standard Deviation 46.2 fL (36.4-46.3); Red Blood Count 4.38 Miln/mm3 (4.00-5.20); White Blood Count 6.2 Thou/mm3 (3.6-11.0)
[2024-12-09 18:48] LABS: Alanine Aminotransferase 48 U/L (10-49); Albumin, Serum 4.3 gm/dL (3.5-5.0); Albumin/Globulin Ratio 2.3 (1.2-2.2); Alkaline Phosphatase 64 U/L (46-116); Anion Gap 8 (7-16); Aspartate Amino Transferase 32 U/L (0-34); BUN/Creatinine Ratio 15 Ratio (12-20); Bilirubin,Total 0.5 mg/dL (0.3-1.2); Blood Urea Nitrogen 12 mg/dL (9-23); Calcium 9.1 mg/dL (8.3-10.6); Calcium (Corrected) 9.1 mg/dL (8.5-10.1); Carbon Dioxide 23.5 mMol/L (20.0-31.0); Chloride 110 mMol/L (98-107); Creatinine (Component) 0.8 mg/dL (0.6-1.3); Estimated Creatinine Clearance 85.8 mL/min (>60); Globulin 1.9 gm/dL (2.3-3.5); Glucose 150 mg/dL (74-106); INR 1.0 (0.9-1.3); LDH (Lactate Dehydrogenase) 166 U/L (120-246); Lipase 31 U/L (12-53); Magnesium 2.0 mg/dL (1.6-2.6); Osmolality,Calculated 283 (275-295); Partial Thromboplastin Time 27.3 Seconds (22.0-36.0); Phosphorous 4.0 mg/dL (2.4-5.1); Potassium 3.6 mMol/L (3.4-5.1); Procalcitonin 0.16 ng/ml (0.0-0.49); Prothrombin Time 10.2 Seconds (9.0-12.2); Sodium 141 mMol/L (136-145); Total Protein 6.2 gm/dL (5.7-8.2); Troponin I < 0.002 ng/mL (0.0-0.045); eGFR > 60 See Note
[2024-12-09 19:18] VITALS: TEMP 37.4
[2024-12-09 19:19] LABS: B-Type Natriuretic Peptide < 20 pg/mL (0-100)
[2024-12-09] MEDS: IBUPROFEN TAB 400 MG TABLET 800 MG PO (19:28)
[2024-12-09 19:39] LABS: Collection Type, Urine Clean Catch
[2024-12-09 19:49] LABS: Bilirubin,Urine Negative (Negative); Blood,Urine Negative (Negative); Clarity,Urine Clear (Clear/Hazy); Color,Urine Colorless (Lt Yel-Yel); Culture Indicated,Urine Not Indicated; Glucose, Urine Negative (Negative); Ketones,Urine Negative (Negative); Leukocyte Esterase,Urine Negative (Negative); Nitrite,Urine Negative (Negative); PH,Urine 6.5 (5.0-7.0); Protein,Urine Negative (Neg - Trace); RBC,Urine 1 /hpf (0-3); Specific Gravity,Urine 1.005 (1.001-1.035); Squamous Epithelial Cell,Urine 1 /hpf (0-5); Urobilinogen,Urine Negative mg/dL (0.0-1.0); WBC,Urine 1 /hpf (0-5)
[2024-12-09 21:08] LABS: Reflex Lactate? Y
[2024-12-09 21:23] VITALS: BP 102/76; PULSE 74; RESP 16; TEMP 37.1; O2SAT 96
== END 2024-12-09 21:36 | disposition home or self-care (01) ==
PROVIDERS: Nurse Practitioner Family; Emergency Provider Emergency Medicine; PCP Family Medicine
DX: R50.9 Fever, unspecified (principal); Z59.01 Sheltered homelessness
CPT/HCPCS: 36415; 71045; 80053; 81001; 83605; 83615; 83690; 83735; 83880; 84100; 84145; 84484; 85025; 85610; 85730; 87040; 93005; 96360; 99283; J7120; A9270

== ENCOUNTER 2024-12-23 12:58 | Emergency (ER) | payer MEDICAID, SELFPAY ==
[2024-12-23 13:25] VITALS: BP 126/82; PULSE 84; RESP 20; TEMP 36.8; O2SAT 95; BMI 25.5
--- NOTE | 2024-12-23 14:10 | PD.EDURI ---
Upper Respiratory Inf. RME/HPI General Chief Complaint: Flu Like Symptoms Stated Complaint: COUGH X 4 DAYS PHLEGM, CHEST PRESSURE Time Seen by Provider: 12/23/24 14:11 Arrival date/time: 12/23/24 12:58 Limitations: no limitations RME / HPI RME / HPI Narrative: DR. SAMUELS MAIN ED EVALUATION: 49-year-old female with history of chronic back pain presents to the Emergency Department with complaint of shortness of breath along with productive cough and congestion. She is currently staying in a homeless halfway. She reports active smoking and alcohol use. No chest pain reported. No known fever. Related Data Previous Rx's ?Medication ?Instructions ?Recorded acetaminophen 500 mg capsule 1,000 mg (2 x 500 mg) PO Q6H PRN 04/16/20 fever or pain #30 caps ferrous sulfate 325 mg (65 mg 325 mg PO BID #120 tabs 04/16/20 iron) tablet ibuprofen 600 mg tablet 600 mg PO Q8H PRN fever or pain 04/16/20 #30 tabs sulfamethoxazole 800 1 tab PO BID #14 tabs 04/16/20 mg-trimethoprim 160 mg tablet (Bactrim DS) meloxicam 7.5 mg tablet 7.5 mg PO QDAY #10 tabs 02/13/24 cephalexin 500 mg capsule 500 mg PO BID #6 caps 07/12/24 pantoprazole 40 mg tablet,delayed 40 mg PO QDAY #30 tabs 10/06/24 release (Protonix) IBU 800 mg tablet (ibuprofen) 800 mg PO Q6H PRN pain #30 tabs 10/08/24 ibuprofen 600 mg tablet 600 mg PO Q8H PRN pain #10 tabs 11/05/24 lidocaine 4 % topical patch 1 patch topical QDAY PRN pain #6 ea 11/05/24 ondansetron 4 mg disintegrating 4 mg PO Q12H PRN nausea and 11/05/24 tablet vomiting #4 tabs ibuprofen 800 mg tablet 800 mg PO Q8H PRN pain #30 tabs 12/09/24 albuterol sulfate 90 mcg/actuation 2 puff inhalation Q6H PRN 12/23/24 aerosol inhaler (Ventolin HFA) shortness of breath or wheezing #8.5 grams amoxicillin 875 mg-potassium 1 tab PO BID infection #20 tabs 12/23/24 clavulanate 125 mg tablet prednisone 20 mg tablet See Taper PO QDAY allergic 12/23/24 reaction #18 tabs Allergies Allergy/AdvReac Type Severity Reaction Status Date / Time No Known Allergies Allergy Verified 12/23/24 13:00 Review of Systems Review of Systems Systems Reviewed: All systems reviewed, normal except as documented Past Medical History Past Medical History CARDIAC: Negative Congestive Heart Failure RESPIRATORY: Negative Chronic Obstructive Pulmonary Disease (COPD) GASTROINTESTINAL: Positive Gastrointestinal Disorders and Ulcer GENITOURINARY: Negative Renal Disease MUSCULOSKELETAL: Positive Arthritis ENDOCRINE: Negative Diabetes Mellitus Type 1 or Diabetes Mellitus Type 2 PSYCHO/SOCIAL: Positive Depression, Anxiety and Post Traumatic Stress Disorder Family History FAMILY HISTORY: Positive Family Psychiatric Problems Surgical History SURGICAL: Positive Abdominal Surgery, Gastric Bypass Surgery, Bowel Surgery and Tubal Ligation Social History SMOKING STATUS: Heavy (> 1 pack/day) SUBSTANCE USE: marijuana, amphetamines and methamphetamine ED Exam General Limitations: Present no limitations General appearance: Present alert, in no apparent distress and other (wearing a mask, coughing intermittently) Head Head exam: Present atraumatic, normocephalic and normal inspection Eye Eye exam: Present normal appearance, PERRL and EOMI ENT ENT exam: Present normal exam, normal oropharynx and mucous membranes moist Neck Neck exam: Present normal inspection, full ROM and trachea midline Chest Chest inspection: Present normal inspection and symmetric chest wall rise Respiratory Respiratory exam: Present wheezes (scattered wheezing) Cardiovascular Cardiovascular exam: Present regular rate, normal rhythm and normal heart sounds Abdominal Exam Abdominal exam: Present soft and normal bowel sounds Extremities Exam Extremities exam: Present normal inspection and full ROM Back Exam Back exam: Present normal inspection and full ROM Neurological Exam Neurological exam: Present alert, oriented X3 and CN II-XII intact Psychiatric Psychiatric exam: Present normal affect and normal mood Skin Skin exam: Present warm, dry, intact and normal color Course Quality Measures none Orders Category Date Time Status CXRP [XR chest 1V portable] Stat Exams 12/23/24 14:16 Completed HCG Qualitative,Urine Stat Lab 12/23/24 14:31 Completed ALBUTEROL RT 3ml [Proventil Rt 3ml] Med 12/23/24 14:14 Discontinued 5 mg INH X1 ONE Amoxicillin/Pot Clav 875 [Augmentin 875] Med 12/23/24 14:16 Discontinued 1 tab PO X1 ONE predniSONE Med 12/23/24 14:14 Discontinued 60 mg PO X1 ONE Vital Signs Vital signs: Vital Signs Temperature 98.2 F 12/23/24 13:25 Pulse Rate 84 12/23/24 13:25 Respiratory Rate 20 12/23/24 13:25 Blood Pressure 126/82 12/23/24 13:25 Pulse Oximetry (%) 95 12/23/24 13:25 Oxygen Delivery Method Room Air 12/23/24 13:25 Upper Respiratory Infection MDM Narrative MDM Narrative:: I, Deepti Shipley, am scribing for and in the presence of Dr. Samuels. 49-year-old female with shortness of breath, productive cough, and congestion. Exam shows scattered wheezing and borderline oxygen saturation. Workup initiated for respiratory infection versus COPD related process. Differential diagnoses include COPD exacerbation, bronchitis, and pneumonia. 1550: Patient will be discharged with bronchitis and COPD exacerbation. Patient data External records reviewed:: [facility] previous records Clinical information provided by:: patient Social determinants that could affect healthcare access:: other (specify) (She reports active smoking and alcohol use.) Patient has the following chronic illnesses:: Chronic back pain. She is currently staying in a homeless halfway. She reports active smoking and alcohol use. How is presenting disease/condition affected by chronic disease/condition?: exacerbated by Evaluation data The following diagnostics were reviewed and interpreted by me:: lab results and radiology exam(s) Lab and/or radiology exams considered but not ordered:: none Interpretation Summary: See MDM narrative above. RADIOLOGY Procedure(s): XR chest 1V portable Accession Number(s): [id number] cc: Farooq Samuels MD; Teddy Quiroz MD~ EXAMINATION: PA chest single view TECHNIQUE: Upright PA chest single view Date and time: December 23, 2024, 1428 hours, comparison December 09, 2024 INDICATIONS: Coughing chest pain beginning 4 days ago. FINDINGS: Mild accentuation basilar bronchovascular markings. Normal heart size No lobar pneumonia. No pulmonary edema. Mild osteopenia IMPRESSION: Basilar bronchitis pattern Dictated By: Teddy Quiroz MD Medications / Prescriptions Medications or Prescriptions considered but not ordered:: none Medication administrations:: Medication Administration History Discontinued Medications Albuterol (Albuterol Rt 2.5 Mg/3 Ml Nebu) 5 mg INH X1 ONE Stop: 12/23/24 14:15 Last Admin: 12/23/24 14:38 Dose: 5 mg Documented By: KENNETH Amoxicillin/Clavulanate Potassium (Amoxicillin/Pot Clav 875 Tablet) 1 tab PO X1 ONE Stop: 12/23/24 14:17 Last Admin: 12/23/24 16:06 Dose: 1 tab Prednisone (Prednisone 20 Mg Tablet) 60 mg PO X1 ONE Stop: 12/23/24 14:15 Last Admin: 12/23/24 16:06 Dose: 60 mg see above Consultations Consultation(s) initiated? (list below): No Diagnosis Upper Respiratory Differential Diagnosis: other (COPD exacerbation, bronchitis, and pneumonia) Most likely diagnosis given after review of the tests above:: Bronchitis COPD exacerbation Admission Indicated Admission indicated?: not indicated Admission Request Was there a request for admission?: No Disposition Plan Disposition Plan: Discharge Discharge Attestation Discharge Attestation: The patient and all family members were given an opportunity to ask questions and understood the discharge instructions. Discharge instructions specifically effects, indications for sooner follow up or return to the emergency department, and the expected course of current diagnosis. Patient condition: Stable Discharge Plan Plan Patient Disposition: HOME (Self Care) Patient condition on transfer: Stable Prescriptions/Referrals Prescriptions/Med Rec: New amoxicillin-pot clavulanate 875-125 mg tablet 1 tab PO BID MDD 2 Qty: 20 0RF prednisone 20 mg tablet See Taper PO QDAY MDD 3 Qty: 18 0RF Taper: Prednisone Taper 20 mg DAILY for 2 Days and 0 Hour Rx Instructions: Take 3 Tabs q Day for 3 days then take 2 tabs q Day for 3 days then take 1 tablet q Day for 3 days then D/C #18 albuterol sulfate [Ventolin HFA] 90 mcg/actuation HFA aerosol inhaler 2 puff inhalation Q6H PRN (Reason: shortness of breath or wheezing) Qty: 8.5 0RF No Action sulfamethoxazole-trimethoprim [Bactrim DS] 800-160 mg tablet 1 tab PO BID Qty: 14 0RF ferrous sulfate 325 mg (65 mg iron) tablet 325 mg PO BID Qty: 120 0RF Rx Instructions: Be sure to take your iron pills on an empty stomach, with orange juice ibuprofen 600 mg tablet 600 mg PO Q8H PRN (Reason: fever or pain) Qty: 30 0RF acetaminophen 500 mg capsule 1,000 mg PO Q6H PRN (Reason: fever or pain) Qty: 30 0RF pantoprazole [Protonix] 40 mg tablet,delayed release (DR/EC) 40 mg PO QDAY Qty: 30 0RF ibuprofen [IBU] 800 mg tablet 800 mg PO Q6H PRN (Reason: pain) Qty: 30 0RF ondansetron 4 mg tablet,disintegrating 4 mg PO Q12H PRN (Reason: nausea and vomiting) Qty: 4 0RF lidocaine 4 % adhesive patch,medicated 1 patch topical QDAY PRN (Reason: pain) Qty: 6 0RF ibuprofen 600 mg tablet 600 mg PO Q8H PRN (Reason: pain) Qty: 10 0RF meloxicam 7.5 mg tablet 7.5 mg PO QDAY Qty: 10 0RF cephalexin 500 mg capsule 500 mg PO BID Qty: 6 0RF ibuprofen 800 mg tablet 800 mg PO Q8H PRN (Reason: pain) Qty: 30 0RF Problem List Clinical Impression: Bronchitis, COPD exacerbation Patient/Caregiver Discharge Instructions Discharge Activity: activity as tolerated Education Materials: COPD: Using Inhalers, ED Bronchitis with Wheezing (Adult) Additional Instructions: Follow-up with your doctor in 2 to 3 days. Take medications as prescribed. Print Language: Indonesian Stand Alone Forms: [employer] Award Info., Patient Portal Info Letter
--- NOTE | 2024-12-23 14:16 | XR_ITS ---
EXAMINATION: PA chest single view TECHNIQUE: Upright PA chest single view Date and time: December 23, 2024, 1428 hours, comparison December 09, 2024 INDICATIONS: Coughing chest pain beginning 4 days ago. FINDINGS: Mild accentuation basilar bronchovascular markings. Normal heart size No lobar pneumonia. No pulmonary edema. Mild osteopenia IMPRESSION: Basilar bronchitis pattern
[2024-12-23 14:38] VITALS: PULSE 84; PULSE 88; RESP 20; O2SAT 98
[2024-12-23] MEDS: ALBUTEROL RT 2.5 MG/3 ML NEBU 5 MG INH (14:38)
[2024-12-23 15:29] LABS: HCG Qualitative,Urine Negative
[2024-12-23] MEDS: AMOXICILLIN/POT CLAV 875 TABLET 1 TAB PO (16:06)
== END 2024-12-23 16:49 | disposition home or self-care (01) ==
LOC: SERX 16:43
PROVIDERS: Emergency Provider Family Medicine
DX: J44.1 Chronic obstructive pulmonary disease with (acute) exacerbation (principal)
CPT/HCPCS: 71045; 81025; 94640; 99283; J7512; A9270

== ENCOUNTER 2024-12-31 11:39 | Emergency (ER) | payer MEDICAID, SELFPAY ==
--- NOTE | 2024-12-31 11:41 | EKG_ITS ---
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
[2024-12-31 11:45] VITALS: BP 144/85; PULSE 85; RESP 18; TEMP 36.7; O2SAT 95; BMI 25.5
--- NOTE | 2024-12-31 12:24 | EDNOTE_ITS ---
ED General RME/HPI General Chief complaint: Chest Pain Stated complaint: CHEST PAIN SINCE LAST NIGHT Time Seen by Provider: 12/31/24 12:18 Arrival date/time: 12/31/24 11:39 CC: Chest pain HPI anterior center chest pain that radiates to the back cramping sensation but also epigastric pain onset yesterday afternoon to early evening, progressive with worse in the last hour increased pain with deep inhalation cough sneeze torso rotation. Currently pain is an 8 on a 10 scale. Denies fever shortness of breath or difficulty breathing other than secondary to chest pain. Related Data Previous Rx's ?Medication ?Instructions ?Recorded acetaminophen 500 mg capsule 1,000 mg (2 x 500 mg) PO Q6H PRN 04/16/20 fever or pain #30 caps ferrous sulfate 325 mg (65 mg 325 mg PO BID #120 tabs 04/16/20 iron) tablet ibuprofen 600 mg tablet 600 mg PO Q8H PRN fever or p ain 04/16/20 #30 tabs sulfamethoxazole 800 1 tab PO BID #14 tabs mg-trimethoprim 160 mg tablet (Bactrim DS) meloxicam 7.5 mg tablet 7.5 mg PO QDAY #10 tabs 07/02 cephalexin 500 mg capsule 500 mg PO BID #6 caps pantoprazole 40 mg tablet,delayed 40 mg PO QDAY #30 ta bs 10/06/24 release (Protonix) IBU 800 mg tablet (ibuprofen) 800 mg PO Q6H PRN pain # 30 tabs 10/08/24 ibuprofen 600 mg tablet 600 mg PO Q8H PRN pain #10 t abs 11/05/24 lidocaine 4 % topical patch 1 patch topical QDAY PRN p ain #6 ea 11/05/24 ondansetron 4 mg disintegrating 4 mg PO Q12H PRN nause a and 11/05/24 tablet vomiting #4 tabs ibuprofen 800 mg tablet 800 mg PO Q8H PRN pain #30 t abs 12/09/24 albuterol sulfate 90 mcg/actuation 2 puff inhalation Q 6H PRN 12/23/24 aerosol inhaler (Ventolin HFA) shortness of breath or wheezing #8.5 grams amoxicillin 875 mg-potassium 1 tab PO BID infection #2 0 tabs 11/15/25 clavulanate 125 mg tablet prednisone 20 mg tablet See Taper PO QDAY allergic 1 02/23/24 reaction #18 tabs meloxicam 7.5 mg tablet 7.5 mg PO QDAY #10 tabs 12/10 05/02 Allergies Allergy/AdvReac Type Severity Reaction Status Date / Time No Known Allergies Allergy Verified 12/31/24 11:40 Review of Systems Review of Systems Narrative Review of Systems: GEN: No fever, no chills, no weight loss EYES: No discharge, no visual changes, no pain HEENT: No ear pain, no congestion, no sore throat PULM: No shortness of breath, no cough, no congestion CV: + chest pain, no dyspnea on exertion, no palpitations GI: No nausea, no vomiting, no diarrhea, no pain, no constipation : No frequency, no urgency, no dysuria MUSC/SKEL: No joint pain, no back pain SKIN: No rash PSYCH: No hallucinations, no depression HEME/LYMPH: No easy bleeding or bruising tendencies NEURO: No weakness, no headache Past Medical History Past Medical History CARDIAC: Negative Congestive Heart Failure RESPIRATORY: Negative Chronic Obstructive Pulmonary Disease (COPD) GASTROINTESTINAL: Positive Gastrointestinal Disorders and Ulcer GENITOURINARY: Negative Renal Disease MUSCULOSKELETAL: Positive Arthritis ENDOCRINE: Negative Diabetes Mellitus Type 1 or Diabetes Mellitus Type 2 PSYCHO/SOCIAL: Positive Depression, Anxiety and Post Traumatic Stress Disorder Family History FAMILY HISTORY: Positive Family Psychiatric Problems Surgical History SURGICAL: Positive Abdominal Surgery, Gastric Bypass Surgery, Bowel Surgery and Tubal Ligation Social History SMOKING STATUS: Current every day smoker SUBSTANCE USE: marijuana, amphetamines and methamphetamine ED Exam Narrative Physical exam: [General: In moderate discomfort but not in any acute distress Head normocephalic HEENT: Eyes pupils are PERRLA EOMs are intact mouth pink moist membranes uvula is midline swallow symmetrical phonation is normal. All of the substance of HEENT are within acceptable limits Neck is supple nontender, no JVD no edema Chest equal chest rise, mild tenderness to palpation to the right and left costosternal junction. No abrasions rash induration or ulcerations. Respiratory: Clear to auscultation no wheezes crackles or rubs CV: Rate rhythm is regular no murmurs rubs or clicks Abdomen is distended secondary to body habitus soft nontender no masses positive bowel sounds all 4 quadrants Back: No CVA tenderness no spinous process tenderness from cervical spine thoracic and lumbar spine Skin: Intact no petechiae rash induration ulceration or crepitus Extremities: Moving all extremity against resistance cap refill less than 2 seconds neurosensory intact Neuro: Awake alert oriented x3 Glascow coma 15 no focal deficits] Course Course Course Narrative: Low index of suspicion for an acute AMI, at this time the patient be discharged home with chest wall pain. Patient will be given meloxicam to follow-up with her primary care doctor. Quality Measures none Orders Category Date Time Status EKG (ED ONLY) *Do not use* NOW Care 12/31/24 11:42 Completed EKG (ED Only) Stat Exams 12/31/24 11:41 Draft XR chest 1V Stat Exams 12/31/24 12:26 Completed B-Type Natriuretic Peptide Stat Lab 12/31/24 12:31 Completed CBC Stat Lab 12/31/24 12:31 Completed Comprehensive Metabolic Panel Stat Lab 12/31/24 12:31 Completed Lipase Stat Lab 12/31/24 12:31 Completed Magnesium Stat Lab 12/31/24 12:31 Completed Partial Thromboplastin Time Stat Lab 12/31/24 12:31 Completed Prothrombin Time with INR Stat Lab 12/31/24 12:31 Completed Troponin I Stat Lab 12/31/24 12:31 Completed Ketorolac Inj [Toradol Inj] Med 12/31/24 12:22 Discontinued 30 mg IM X1 ONE Vital Signs Vital signs: Vital Signs Temperature 98.0 F 12/31/24 11:45 Pulse Rate 85 12/31/24 11:45 Respiratory Rate 18 12/31/24 11:45 Blood Pressure 144/85 H 12/31/24 11:45 Pulse Oximetry (%) 95 12/31/24 11:45 Oxygen Delivery Method Room Air 12/31/24 11:45 Discharge Plan Plan Patient Disposition: HOME (Self Care) Patient condition on transfer: Stable Prescriptions/Referrals Prescriptions/Med Rec: New meloxicam 7.5 mg tablet 7.5 mg PO QDAY Qty: 10 0RF No Action sulfamethoxazole-trimethoprim [Bactrim DS] 800-160 mg tablet 1 tab PO BID Qty: 14 0RF ferrous sulfate 325 mg (65 mg iron) tablet 325 mg PO BID Qty: 120 0RF Rx Instructions: Be sure to take your iron pills on an empty stomach, with orange juice ibuprofen 600 mg tablet 600 mg PO Q8H PRN (Reason: fever or pain) Qty: 30 0RF acetaminophen 500 mg capsule 1,000 mg PO Q6H PRN (Reason: fever or pain) Qty: 30 0RF pantoprazole [Protonix] 40 mg tablet,delayed release (DR/EC) 40 mg PO QDAY Qty: 30 0RF ibuprofen [IBU] 800 mg tablet 800 mg PO Q6H PRN (Reason: pain) Qty: 30 0RF ondansetron 4 mg tablet,disintegrating 4 mg PO Q12H PRN (Reason: nausea and vomiting) Qty: 4 0RF lidocaine 4 % adhesive patch,medicated 1 patch topical QDAY PRN (Reason: pain) Qty: 6 0RF ibuprofen 600 mg tablet 600 mg PO Q8H PRN (Reason: pain) Qty: 10 0RF amoxicillin-pot clavulanate 875-125 mg tablet 1 tab PO BID MDD 2 Qty: 20 0RF prednisone 20 mg tablet See Taper PO QDAY MDD 3 Qty: 18 0RF Taper: Prednisone Taper 20 mg DAILY for 2 Days and 0 Hour Rx Instructions: Take 3 Tabs q Day for 3 days then take 2 tabs q Day for 3 days then take 1 tablet q Day for 3 days then D/C #18 albuterol sulfate [Ventolin HFA] 90 mcg/actuation HFA aerosol inhaler 2 puff inhalation Q6H PRN (Reason: shortness of breath or wheezing) Qty: 8.5 0RF meloxicam 7.5 mg tablet 7.5 mg PO QDAY Qty: 10 0RF cephalexin 500 mg capsule 500 mg PO BID Qty: 6 0RF ibuprofen 800 mg tablet 800 mg PO Q8H PRN (Reason: pain) Qty: 30 0RF Referrals: Grzegorz Caarballo MD [Primary Care Provider, Family Practice] - In 1 week Problem List Clinical Impression: Chest wall pain Patient/Caregiver Discharge Instructions Education Materials: ED Chest Pain, Noncardiac Additional Instructions: Take the medication as needed, follow-up with your primary care doctor if there is worsening of symptoms by the medication return to the emergency room meetly for further evaluation. Print Language: Sammarinese Stand Alone Forms: [employer] Award Info., Work/School Release, Patient Portal Info Letter PA/GROUP HOME WORKER Supervising Physician PA/GROUP HOME WORKER Supervising Physician: Juan Alberto Beltran ENP MDM Clinical Information Provided by: patient Medical Records reviewed [facility] Medical Records additional comments: Patient states a history of anxiety depression. Review of the medical records show multiple admissions for alcohol and chronic abdominal pain. Patient admits to smoking 1.5 packs of cigarettes a day. Meds/Rx considered, not ordered None Labs/Rad/Tests considered, not ordered None Labs Labs: interpreted by me Lab(s) Interpretation(s): CBC shows no acute leukocytosis anemia thrombocytopenia CMP shows no significant electrolyte imbalances renal impairment transaminitis is mild elevation of AST and ALT no T. bili elevation Troponin BNP is negative Coags within acceptable limits Imaging Imaging interpretation: interpreted by ok Imaging Interpretation(s): Chest x-ray interpreted by me shows no acute finding requires emergent or immediate intervention. Medication Administration(s) Medication Administration History Discontinued Medications Ketorolac Tromethamine (Ketorolac Inj 30 Mg/Ml Vial) 30 mg IM X1 ONE Stop: 12/31/24 12:23 Last Admin: 12/31/24 12:38 Dose: 30 mg Documented By: CATY Diagnosis Differential Diagnosis ED Complaint MDM: ACS CA pneumonia
--- NOTE | 2024-12-31 12:26 | XR_ITS ---
EXAMINATION: PA chest single view TECHNIQUE: Upright PA chest single view Date and time: December 31, 2024, 1240 hours, comparison December 23, 2024 INDICATIONS: Onset chest pain today. FINDINGS: Accentuation basilar bronchovascular markings Normal heart size No lobar pneumonia Intact osseous structures IMPRESSION: Bronchitis pattern
[2024-12-31 12:38] LABS: Basophils # (Auto) 0.1 Thou/mm3 (0.0-0.2); Basophils % (Auto) 1 % (0-2.5); Eosinophils # (Auto) 0.2 Thou/mm3 (0.0-0.5); Eosinophils % (Auto) 2 % (0-10); Hematocrit 39.5 % (36.0-46.0); Hemoglobin 13.0 g/dL (12.0-16.0); Immature Granulocytes Auto 0.05 Thou/mm3 (0.00-0.00); Lymphocytes # (Auto) 2.7 Thou/mm3 (1.0-4.8); Lymphocytes % (Auto) 29 % (10-50); Mean Corpuscular HGB Conc 32.9 g/dl (31.0-37.0); Mean Corpuscular Hemoglobin 30.0 pg (25.0-35.0); Mean Corpuscular Volume 91 fL (80-100); Monocytes # (Auto) 0.5 Thou/mm3 (0.0-0.8); Monocytes % (Auto) 6 % (0-12); Neutrophils # (Auto) 5.5 Thou/mm3 (1.8-7.7); Neutrophils % (Auto) 61 % (37-80); Nucleated Red Blood Cell # 0.00 Thou/mm3 (0.00-0.00); Nucleated Red Blood Cell % 0 /100 WBC (0); Platelet Count 267 Thou/mm3 (140-440); RDW Standard Deviation 51.9 fL (36.4-46.3); Red Blood Count 4.33 Miln/mm3 (4.00-5.20); White Blood Count 9.0 Thou/mm3 (3.6-11.0)
[2024-12-31] MEDS: KETOROLAC INJ 30 MG/ML VIAL IM (12:38)
[2024-12-31 13:04] LABS: B-Type Natriuretic Peptide 21 pg/mL (0-100)
[2024-12-31 13:08] LABS: INR 0.9 (0.9-1.3); Partial Thromboplastin Time 24.8 Seconds (22.0-36.0); Prothrombin Time 9.8 Seconds (9.0-12.2)
[2024-12-31 13:09] LABS: Alanine Aminotransferase 52 U/L (10-49); Albumin, Serum 4.4 gm/dL (3.5-5.0); Albumin/Globulin Ratio 1.9 (1.2-2.2); Alkaline Phosphatase 50 U/L (46-116); Anion Gap 6 (7-16); Aspartate Amino Transferase 45 U/L (0-34); BUN/Creatinine Ratio 13 Ratio (12-20); Bilirubin,Total 0.3 mg/dL (0.3-1.2); Blood Urea Nitrogen 12 mg/dL (9-23); Calcium 9.5 mg/dL (8.3-10.6); Calcium (Corrected) 9.5 mg/dL (8.5-10.1); Carbon Dioxide 28.9 mMol/L (20.0-31.0); Chloride 110 mMol/L (98-107); Creatinine (Component) 0.9 mg/dL (0.6-1.3); Estimated Creatinine Clearance 79.4 mL/min (>60); Globulin 2.3 gm/dL (2.3-3.5); Glucose 91 mg/dL (74-106); Lipase 46 U/L (12-53); Magnesium 2.3 mg/dL (1.6-2.6); Osmolality,Calculated 288 (275-295); Potassium 4.1 mMol/L (3.4-5.1); Sodium 145 mMol/L (136-145); Total Protein 6.7 gm/dL (5.7-8.2); Troponin I < 0.020 ng/mL (0.0-0.045); eGFR > 60 See Note
[2024-12-31 14:03] VITALS: BP 144/88; PULSE 81; RESP 18; TEMP 36.9; O2SAT 97
== END 2024-12-31 14:56 | disposition home or self-care (01) ==
PROVIDERS: Registered Nurse General Practice; Emergency Provider Emergency Medicine; PCP Family Medicine
DX: R07.89 Other chest pain (principal)
CPT/HCPCS: 36415; 71045; 80053; 80307; 81001; 83690; 83735; 83880; 84484; 85025; 85610; 85730; 93005; 96372; 99283; J1885

== ENCOUNTER 2025-01-08 17:06 | Observation (INO) | payer MEDICAID, SELFPAY ==
[2025-01-08] VITALS (21 sets, daily range): BP systolic 84–129; BP diastolic 50–84; PULSE 76–114; RESP 4–94; TEMP 37.7–39.6; O2SAT 88–99; BMI 260.4
--- NOTE | 2025-01-08 17:17 | EKG_ITS ---
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
--- NOTE | 2025-01-08 17:17 | XR_ITS ---
EXAMINATION: AP chest single view TECHNIQUE: Portable sitting AP chest single view Date and time: 2024, 1744 hours, comparison December 31, 2024 INDICATIONS: Sepsis alert today FINDINGS: Early pneumonia right base obscuring detail medial portion right hemidiaphragm Normal heart size Prominent osteopenia IMPRESSION: Early pneumonia right base
[2025-01-08 17:49] LABS: Lactate (Lactic Acid) 1.2 mMol/L (0.4-2.0)
[2025-01-08 17:56] LABS: Basophils # (Auto) 0.0 Thou/mm3 (0.0-0.2); Basophils % (Auto) 0 % (0-2.5); Eosinophils # (Auto) 0.0 Thou/mm3 (0.0-0.5); Eosinophils % (Auto) 0 % (0-10); Hematocrit 42.2 % (36.0-46.0); Hemoglobin 14.0 g/dL (12.0-16.0); Immature Granulocytes Auto 0.01 Thou/mm3 (0.00-0.00); Lymphocytes # (Auto) 0.3 Thou/mm3 (1.0-4.8); Lymphocytes % (Auto) 7 % (10-50); Mean Corpuscular HGB Conc 33.2 g/dl (31.0-37.0); Mean Corpuscular Hemoglobin 30.1 pg (25.0-35.0); Mean Corpuscular Volume 91 fL (80-100); Monocytes # (Auto) 0.2 Thou/mm3 (0.0-0.8); Monocytes % (Auto) 4 % (0-12); Neutrophils # (Auto) 3.4 Thou/mm3 (1.8-7.7); Neutrophils % (Auto) 88 % (37-80); Nucleated Red Blood Cell # 0.00 Thou/mm3 (0.00-0.00); Nucleated Red Blood Cell % 0 /100 WBC (0); Platelet Count 150 Thou/mm3 (140-440); RDW Standard Deviation 50.8 fL (36.4-46.3); Red Blood Count 4.65 Miln/mm3 (4.00-5.20); White Blood Count 3.9 Thou/mm3 (3.6-11.0)
[2025-01-08] MEDS: SODIUM CHLORIDE 0.9% 1000 ML 1,000 ML 125 ML IV (18:07)
[2025-01-08] MEDS: SODIUM CHLORIDE 0.9% 1000 ML 1,000 ML 999 ML IV (18:16)
[2025-01-08] MEDS: ONDANSETRON INJ 2 MG/ML INJ 2 ML 4 MG IVP (18:16)
[2025-01-08] MEDS: ACETAMINOPHEN IVPB 1,000 MG/100 ML VIAL 250 MG IV (18:17)
[2025-01-08 18:26] LABS: INR 1.0 (0.9-1.3); Partial Thromboplastin Time 28.4 Seconds (22.0-36.0); Prothrombin Time 10.6 Seconds (9.0-12.2)
[2025-01-08 18:33] LABS: B-Type Natriuretic Peptide < 20 pg/mL (0-100)
[2025-01-08 18:42] LABS: Alanine Aminotransferase 156 U/L (10-49); Albumin, Serum 4.5 gm/dL (3.5-5.0); Albumin/Globulin Ratio 1.6 (1.2-2.2); Alkaline Phosphatase 65 U/L (46-116); Anion Gap 7 (7-16); Aspartate Amino Transferase 153 U/L (0-34); BUN/Creatinine Ratio 17 Ratio (12-20); Bilirubin,Total 0.6 mg/dL (0.3-1.2); Blood Urea Nitrogen 17 mg/dL (9-23); Calcium 8.9 mg/dL (8.3-10.6); Calcium (Corrected) 8.9 mg/dL (8.5-10.1); Carbon Dioxide 22.2 mMol/L (20.0-31.0); Chloride 110 mMol/L (98-107); Creatinine (Component) 1.0 mg/dL (0.6-1.3); Estimated Creatinine Clearance 363.9 mL/min (>60); Globulin 2.9 gm/dL (2.3-3.5); Glucose 103 mg/dL (74-106); LDH (Lactate Dehydrogenase) 323 U/L (120-246); Lipase 38 U/L (12-53); Magnesium 1.6 mg/dL (1.6-2.6); Osmolality,Calculated 279 (275-295); Phosphorous 1.8 mg/dL (2.4-5.1); Potassium 3.6 mMol/L (3.4-5.1); Procalcitonin 3.87 ng/ml (0.0-0.49); Sodium 139 mMol/L (136-145); Total Protein 7.4 gm/dL (5.7-8.2); Troponin I < 0.020 ng/mL (0.0-0.045); eGFR > 60 See Note
--- NOTE | 2025-01-08 18:51 | PD.EDADULT ---
ED General RME/HPI General Chief complaint: Flu Like Symptoms Stated complaint: FLU LIKE SYMPTOMS Time Seen by Provider: 01/08/25 17:11 Arrival date/time: 01/08/25 17:06 CC: Nausea vomiting fever HPI patient presents to the ER via EMS report warm to touch tachycardia the patient actually retching at the time of the exam. Patient states 2 family members children, were nausea and vomiting at 3 AM this morning. The patient went back to bed did not wake back up into this afternoon with the same symptoms. Patient normally smokes but only had 1 cigarette. Patient denies chest pain shortness of breath or difficulty breathing. Related Data Home Medications ?Medication ?Instructions ?Recorded ?Confirmed amoxicillin 875 mg-potassium 1 tab PO TID infection 01/09/25 01/09/25 clavulanate 125 mg tablet atorvastatin 10 mg tablet 10 mg PO HS 01/09/25 01/09/25 benzonatate 200 mg capsule 200 mg PO TID PRN cough 01/09/25 01/09/25 dicyclomine 20 mg tablet 20 mg PO TID 01/09/25 01/09/25 ferrous sulfate 325 mg (65 mg 325 mg PO .COMPLEX 01/09/25 01/09/25 iron) tablet gabapentin 300 mg capsule 300 mg PO TID 01/09/25 01/09/25 glucose 4 gram chewable tablet 4 g PO Q15M PRN dumping syndrome 01/09/25 01/09/25 (Dex4 Glucose) hydroxyzine HCl 25 mg tablet 25 mg PO QDAY PRN anxiety 01/09/25 01/09/25 mirtazapine 30 mg disintegrating 30 mg PO QAM 01/09/25 01/09/25 tablet promethazine 6.25 mg/5 mL oral 6.25 mg PO QDAY 01/09/25 01/09/25 syrup sucralfate 1 gram tablet 1 g PO .TIDAC 01/09/25 01/09/25 tiotropium bromide 2.5 2 inh inhalation QAM 01/09/25 01/09/25 mcg/actuation mist for inhalation (Spiriva Respimat) Previous Rx's ?Medication ?Instructions ?Recorded pantoprazole 40 mg tablet,delayed 40 mg PO QDAY #30 tabs 10/06/24 release (Protonix) ibuprofen 800 mg tablet 800 mg PO Q8H PRN pain #30 tabs 12/09/24 albuterol sulfate 90 mcg/actuation 2 puff inhalation Q6H PRN 12/23/24 aerosol inhaler (Ventolin HFA) shortness of breath or wheezing #8.5 grams Allergies Allergy/AdvReac Type Severity Reaction Status Date / Time No Known Allergies Allergy Verified 01/08/25 17:13 Review of Systems Review of Systems Narrative Review of Systems: GEN: + fever, no chills, no weight loss, + body aches EYES: No discharge, no visual changes, no pain HEENT: No ear pain, no congestion, no sore throat PULM: No shortness of breath, no cough, no congestion CV: No chest pain, no dyspnea on exertion, no palpitations GI: + nausea, + vomiting, no diarrhea, no pain, no constipation : No frequency, no urgency, no dysuria MUSC/SKEL: No joint pain, no back pain SKIN: No rash PSYCH: No hallucinations, no depression HEME/LYMPH: No easy bleeding or bruising tendencies NEURO: No weakness, no headache Past Medical History Past Medical History CARDIAC: Negative Congestive Heart Failure RESPIRATORY: Negative Chronic Obstructive Pulmonary Disease (COPD) GASTROINTESTINAL: Positive Gastrointestinal Disorders and Ulcer GENITOURINARY: Negative Renal Disease MUSCULOSKELETAL: Positive Arthritis ENDOCRINE: Negative Diabetes Mellitus Type 1 or Diabetes Mellitus Type 2 PSYCHO/SOCIAL: Positive Depression, Anxiety and Post Traumatic Stress Disorder Family History FAMILY HISTORY: Positive Family Psychiatric Problems Surgical History SURGICAL: Positive Abdominal Surgery, Gastric Bypass Surgery, Bowel Surgery and Tubal Ligation Social History SMOKING STATUS: Current every day smoker SUBSTANCE USE: marijuana, amphetamines and methamphetamine ED Exam Narrative Physical exam: [General: In mild to moderate discomfort but not in any acute distress Head normocephalic HEENT: Eyes pupils are PERRLA EOMs are intact mouth [place] moist membranes uvula is midline swallow symmetrical phonation is normal. All other subsystems of HEENT are within acceptable limits Neck is supple nontender no LAD no JVD Chest equal chest rise nontender to palpation Respiratory: Basilar crackles, wet nonproductive cough note: Patient is a heavy smoker usually smoking a pack plus a day. CV: Rate rhythm is regular no murmurs rubs or clicks Abdomen is soft nontender no masses positive bowel sounds all 4 quadrants Back: No CVA tenderness no spinous process tenderness from cervical spine thoracic and lumbar spine Skin: Intact no petechiae rash induration ulceration or crepitus Extremities: Moving all extremity against resistance cap refill less than 2 seconds neurosensory intact Neuro: Awake alert oriented x3 Glascow coma 15 no focal deficits] Course Course Course Narrative: Assessment of this patient at 0, the patient still maintains soft pressures after 30 mg/kg of IV fluids. The patient did not respond well to Tylenol 1 g IV continue to be febrile at 101.6 patient's ibuprofen was added. Patient is no longer nauseated after Zofran and Compazine. Patient's procalcitonin is elevated but lactic is negative no leukocytosis. Influenza and COVID are negative. After 2-1/2 L of patient continues to have soft blood pressures of 90/60. The patient is still feeling poorly although her nausea is resolved. Chest x-ray shows a mild pneumonia. Patient's case discussed with the resident for Dr. Robles who agrees to accept the patient for admission. Quality Measures none Orders Category Date Time Status COVID-19 Screening Questionnaire NOW Care 01/08/25 23:26 Completed Weight Tester STAT Care 01/08/25 17:17 Completed Continuous Pulse Oximetry STAT Care 01/08/25 17:17 Completed Decision to Admit X1 Care 01/08/25 23:26 Completed EKG (ED ONLY) *Do not use* NOW Care 01/08/25 17:17 Completed In and Out Catheter X1PRN Care 01/08/25 17:17 Completed Insert IV NOW Care 01/08/25 17:17 Active NPO STAT Care 01/08/25 17:17 Completed Saline [Insert IV] NOW Care 01/08/25 17:12 Active Strict Intake and Output Routine Care 01/08/25 17:17 Ordered EKG (ED Only) Stat Exams 01/08/25 17:17 Draft XR chest 1V SEPSIS PROTOCOL Stat Exams 01/08/25 17:17 Completed B-Type Natriuretic Peptide Stat Lab 01/08/25 17:33 Completed Blood Culture (Lab) Stat Lab 01/08/25 17:41 Results CBC Stat Lab 01/08/25 17:33 Completed COVID-19 Antigen (In-House) Stat Lab 01/08/25 19:50 Completed Comprehensive Metabolic Panel Stat Lab 01/08/25 17:33 Completed Creatine Kinase Stat Lab 01/08/25 17:33 Completed Influenza A & B Rapid Panel Stat Lab 01/08/25 20:06 Completed LDH (Lactate Dehydrogenase) Stat Lab 01/08/25 17:33 Completed Lactate (Lactic Acid) Stat Lab 01/08/25 17:33 Completed Lipase Stat Lab 01/08/25 17:33 Completed Magnesium Stat Lab 01/08/25 17:33 Completed Partial Thromboplastin Time Stat Lab 01/08/25 17:33 Completed Phosphorous Stat Lab 01/08/25 17:33 Completed Procalcitonin Stat Lab 01/08/25 17:33 Completed Prothrombin Time with INR Stat Lab 01/08/25 17:33 Completed Troponin I Stat Lab 01/08/25 17:33 Completed Urinalysis, C/S if Indicated Stat Lab 01/08/25 20:13 Completed Acetaminophen Ivpb [Ofirmev Inj] Med 01/08/25 17:13 Discontinued 1,000 mg in 100 ml IV NOW Ibuprofen Tab [Motrin Tab] Med 01/08/25 20:16 Discontinued 800 mg PO X1 ONE Ondansetron Inj [Zofran Inj] Med 01/08/25 17:12 Discontinued 4 mg IVP X1 ONE Ringers Lactated 1000 ml [Lactated Ringers] 1,000 ml Med 01/08/25 20:17 Discontinued IV 999 mls/hr Ringers Lactated 500 ml [Lactated Ringers] 500 ml Med 01/08/25 20:46 Discontinued IV 999 mls/hr Sodium Chloride 0.9% 1000 ml [Ns] 1,000 ml Med 01/08/25 17:13 Discontinued IV 125 mls/hr Sodium Chloride 0.9% 1000 ml [Ns] 1,000 ml Med 01/08/25 17:13 Discontinued IV 999 mls/hr cefTRIAXone/D5w 1gm IV premix [Rocephin/D5w 1gm IV Med 01/08/25 18:39 Discontinued premix] 1 gm in 50 ml IV X1 Oxygen Delivery NOW RT 01/08/25 17:17 Active Vital Signs Vital signs: Vital Signs Temperature 103.3 F H 01/08/25 17:14 Pulse Rate 112 H 01/08/25 17:14 Respiratory Rate 20 01/08/25 17:14 Blood Pressure 129/84 01/08/25 17:14 Pulse Oximetry (%) 94 L 01/08/25 17:14 Oxygen Delivery Method Nasal Cannula 01/08/25 17:14 Oxygen Flow Rate 2 01/08/25 17:14 Discharge Plan Plan Patient Disposition: Admit Acute Care w/in Hospital Patient condition on transfer: Stable Problem List Clinical Impression: Hypotension, Pneumonia, Fever PA/MEMBERSHIP ADMINISTRATOR Supervising Physician PA/MEMBERSHIP ADMINISTRATOR Supervising Physician: Juan Alberto Beltran ENP [facility] Clinical Information Provided by: patient Medical Records reviewed [facility] Meds/Rx considered, not ordered None Labs/Rad/Tests considered, not ordered None Chronic Illness/Social Conditions Explain: Smoker EKG Interpretation EKG #1: EKG Interpretation: EKG performed at 1858 shows a ventricular rate of 103 NE interval 126 QRS of 83 QTc of 391 this is sinus tachycardia. Labs Labs: interpreted by ri Lab(s) Interpretation(s): CBC shows no acute leukocytosis anemia thrombocytopenia Coags within acceptable limits CMP shows a chloride of 110 no other electrolyte imbalances renal impairment normal T. bili AST 153 ALT 156 LDH of 323. Creatinine kinase is negative troponin is negative. Procalcitonin is 3.87 lactic acid is 1.2. Lipase is 38. Urine is negative for UTI. Influenza AB and COVID are negative. Medication Administration(s) Medication Administration History Acetaminophen (Acetaminophen 500 Mg Tablet) 1,000 mg PO Q6H PRN PRN Reason: Fever >100.4 and pain 1-5 Stop: 02/07/25 23:42 Last Admin: 01/09/25 17:18 Dose: 1,000 mg Documented By: Admin: 01/09/25 10:51 Dose: 1,000 mg Documented By: TD Albuterol (Albuterol Inh 8 Gm) 2 puff INH Q6HRRT PRN PRN Reason: shortness of breath or wheezing Stop: 02/08/25 15:44 Benzonatate (Benzonatate 100 Mg Capsule) 100 mg PO Q8HR PRN; Protocol PRN Reason: COUGH Stop: 02/08/25 10:49 Last Admin: 01/09/25 21:10 Dose: 100 mg Documented By: Admin: 01/09/25 10:56 Dose: 100 mg Documented By: TD Enoxaparin Sodium (Enoxaparin Sod Inj 40 Mg/0.4 Ml Syringe) 40 mg SC QDAY [facility] Stop: 01/23/25 08:59 Last Admin: 01/09/25 09:44 Dose: 40 mg Documented By: TD Gabapentin (Gabapentin 300 Mg Capsule) 300 mg PO TID [facility] Stop: 02/08/25 21:59 Last Admin: 01/09/25 21:10 Dose: 300 mg Documented By: Hydroxyzine HCl (Hydroxyzine Hcl 25 Mg Tablet) 25 mg PO QDAY PRN PRN Reason: ANXIETY Stop: 02/08/25 15:44 Ceftriaxone Sodium/Dextrose (Rocephin/D5w 1gm Iv Premix) 1 gm in 50 mls @ 100 mls/hr IV QDAY [facility] Stop: 01/16/25 08:59 Last Admin: 01/09/25 09:45 Dose: 100 mls/hr Documented By: TD Sodium Chloride (Ns) 1,000 mls @ 75 mls/hr IV .[id number] [facility] Stop: 02/08/25 00:28 Last Admin: 01/09/25 17:18 Dose: 75 mls/hr Documented By: Infusion: 01/09/25 14:35 Dose: Infused Documented By: Admin: 01/09/25 01:15 Dose: 75 mls/hr Documented By: JESSENIA Mirtazapine (Mirtazapine 15 Mg Tablet) 30 mg PO QAM [facility] Stop: 02/09/25 08:59 Tiotropium Hub[place] (Tiotropium Br 2.5 Mcg 120 Puff/4 Gm Inhaler) 2 puff INH QAM [facility] Stop: 02/08/25 15:59 Discontinued Medications Acetaminophen (Acetaminophen 325 Mg Tablet) 1,000 mg PO Q6H PRN PRN Reason: Fever >100.4 Stop: 02/07/25 23:42 Albuterol (Albuterol Inh 8 Gm) 2 puff INH Q6H PRN PRN Reason: shortness of breath or wheezing Stop: 02/08/25 15:44 Azithromycin (Azithromycin 250 Mg Tablet) 500 mg PO X1 ONE Stop: 01/09/25 09:01 Last Admin: 01/09/25 09:45 Dose: 500 mg Documented By: TD Sodium Chloride (Ns) 1,000 mls @ 999 mls/hr IV .Q1H1M ONE Stop: 01/08/25 18:13 Last Infusion: 01/08/25 19:44 Dose: Infused Documented By: Admin: 01/08/25 18:16 Dose: 999 mls/hr Documented By: ER Sodium Chloride (Ns) 1,000 mls @ 125 mls/hr IV .Q8H [facility] Stop: 02/07/25 17:12 Last Admin: 01/08/25 18:07 Dose: 125 mls/hr Documented By: ER Acetaminophen (Ofirmev Inj) 1,000 mg in 100 mls @ 250 mls/hr IV NOW ONE Stop: 01/08/25 17:36 Last Infusion: 01/08/25 18:41 Dose: Infused Documented By: Admin: 01/08/25 18:17 Dose: 250 mls/hr Documented By: ER Ceftriaxone Sodium/Dextrose (Rocephin/D5w 1gm Iv Premix) 1 gm in 50 mls @ 100 mls/hr IV X1 ONE Stop: 01/08/25 19:08 Last Infusion: 01/08/25 20:03 Dose: Infused Documented By: Admin: 01/08/25 19:33 Dose: 100 mls/hr Documented By: CLARE Lactated Ringer's (Lactated Ringers) 1,000 mls @ 999 mls/hr IV .Q1H1M ONE Stop: 01/08/25 21:17 Last Infusion: 01/08/25 21:45 Dose: Infused Documented By: Admin: 01/08/25 20:29 Dose: 999 mls/hr Documented By: SABRINA Lactated Ringer's (Lactated Ringers) 500 mls @ 999 mls/hr IV .Q31M ONE Stop: 01/08/25 21:16 Last Infusion: 01/08/25 21:46 Dose: Infused Documented By: Admin: 01/08/25 21:00 Dose: 999 mls/hr Documented By: CLARE Comments: Verified 500 cc bolus with Opal DEVLIN Lactated Ringer's (Lactated Ringers) 1,000 mls @ 75 mls/hr IV .[id number] [facility] Stop: 02/07/25 23:53 Last Admin: 01/09/25 02:33 Dose: Not Given Documented By: SONIA Non-Admin Reason: Discontinued Ibuprofen (Ibuprofen Tab 400 Mg Tablet) 800 mg PO X1 ONE Stop: 01/08/25 20:17 Last Admin: 01/08/25 20:30 Dose: 800 mg Documented By: SABRINA Ondansetron HCl (Ondansetron Inj 2 Mg/Ml Inj 2 Ml) 4 mg IVP X1 ONE; Protocol Stop: 01/08/25 17:13 Last Admin: 01/08/25 18:16 Dose: 4 mg Documented By: ER Potassium Phos/Sodium Phos (Naph,Kp Mbdb 1 Packet (1.5 Gm)) 1 packet PO X1 ONE Stop: 01/09/25 00:01 Last Admin: 01/09/25 01:16 Dose: 1 packet Documented By: CB Sodium Chloride (Sodium Chloride Rt 10% 15 Ml Nebu) 5 ml INH X1 ONE Stop: 01/09/25 00:32 Last Admin: 01/09/25 09:34 Dose: Not Given Documented By: TD Non-Admin Reason: not needed
[2025-01-08] MEDS: cefTRIAXone/D5w 1gm IV premix 1 GM/50 ML BAG IV (19:33)
[2025-01-08 20:17] LABS: Collection Type, Urine Clean Catch
[2025-01-08 20:28] LABS: Bilirubin,Urine Negative (Negative); Blood,Urine Negative (Negative); Clarity,Urine Clear (Clear/Hazy); Color,Urine Yellow (Lt Yel-Yel); Culture Indicated,Urine Not Indicated; Glucose, Urine Negative (Negative); Ketones,Urine Negative (Negative); Leukocyte Esterase,Urine Positive (Negative); Nitrite,Urine Negative (Negative); PH,Urine 6.5 (5.0-7.0); Protein,Urine Negative (Neg - Trace); RBC,Urine 4 /hpf (0-3); Specific Gravity,Urine 1.026 (1.001-1.035); Squamous Epithelial Cell,Urine < 1 /hpf (0-5); Urobilinogen,Urine 2.0 mg/dL (0.0-1.0); WBC,Urine 9 /hpf (0-5)
[2025-01-08] MEDS: RINGERS LACTATED 1000 ML 1,000 ML 999 ML IV (20:29)
[2025-01-08] MEDS: IBUPROFEN TAB 400 MG TABLET 800 MG PO (20:30)
[2025-01-08] MEDS: RINGERS LACTATED 500 ML 500 ML 999 ML IV (21:00)
[2025-01-08 21:07] LABS: Influenza A Ag Negative; Influenza B Ag Negative
[2025-01-08 21:08] LABS: COVID-19 Antigen (In-House) Negative (Negative)
[2025-01-08 21:08] LABS: Creatine Kinase 74 U/L (34-171)
--- NOTE | 2025-01-08 23:53 | ESHP_ITS ---
<Statement entered by Roberto Davis MD - 01/10/25 07:44> I have discussed and was present for the essential components of the history, physical examination, diagnosis, and treatment plan with the resident. I agree with the patient's care as documented by the resident and amended herein by me. Roberto Davis MD FACP <Statement entered by Tahir Ortega MD - 01/09/25 05:05> A 49-year-old female with significant past medical history of psoriasis, psoriatic arthritis, chronic smoker, depression presented to the hospital with chief complaints of fever, nausea, vomitings, cough associated with expectoration since 1 day. Reported that her kids or her home also had episodes of vomiting. As she noted to have shortness of breath, presented to the ED. Vitals at the time of admission are significant for pulse rate 112 bpm, temperature 103.3 ?F. Labs at the time of admission are significant for AST 143, ALT 156, procalcitonin 3.87. Tested negative for COVID-19, influenza. Received 3.5 L bolus in the ED. Admitted in the hospital for observation in view of hypotension at the time of admission. Started on IV fluids, NS at 75 mL/h, ceftriaxone and azithromycin. Blood cultures and sputum cultures were sent. Will continue to monitor vitals. # Lower respiratory tract infection-bacterial versus viral I have personally seen and examined the patient, agree with residents assessment and plan Patient plan of care was discussed with the attending physician, Dr. Ryan Ortega, PGY2 Documentation for date of: 01/08/25 HPI History of Present Illness History of present illness: HPI: 49-year-old female with a past medical history of COPD, psoriatic arthritis, and depression presented to the ED on 01/08/2025 with chief complaint of fever. Patient has 2 sick contacts at home and mentioned a fever, shortness of breath, green sputum production, and nausea and vomiting that has been occurring since the soap maker hours the day of presentation. She was found to have a temp of 103.3 and became hypotensive in the ED though her maps were above 65. She was also found to the have a pulse of 112 and to be tachypneic with a rate of 30. Her WBC count was 3.9 and she met 4/4 sepsis criteria. There was no evidence of endorgan damage. The patient was admitted for sepsis secondary to pneumonia versus viral infection. ED course: * Significant vitals: Temp 103.3 on arrival. Pulse 112. Respiratory rate 30. Blood pressure on arrival was 129/84, decreased to 91/50. * Significant labs: WBC 3.9, AST 153, ALT 156, Phos 1.8, LDH 323, Lactate 1.2, Pro-Kam 3.87, urine RBC 4, urine WBC 9. * Imaging: Chest x-ray showed early right basilar pneumonia. EKG showed sinus tachycardia with a rate of 103, QTc 435, no acute ST segment changes. * ED intervention: Patient received 3.5 L of fluid, 4 mg Zofran, 1 g acetaminophen, 1 g ceftriaxone, and 800 mg ibuprofen. Her temperature, tachypnea, and tachycardia improved, though she still remained febrile and hypotensive on admission. History: * Past medical history: COPD, depression, psoriatic arthritis. * Surgical history: Tubal ligation, gastric bypass * Family history: Noncontributory * Social history: 35+ pack-year smoking history, denies alcohol or illicit drug use Home Medications: (Pending Med Rec) * Ferrous sulfate, ibuprofen 800 mg every 8 hours as needed, meloxicam 7.5 mg daily, Protonix 40 mg daily, prednisone taper, Bactrim 1 tablet p.o. twice daily Allergies: * No known drug allergies CODE STATUS: DNR, intubation okay Review of Systems Review of Systems Narrative Review of Systems: Review of Systems: * General: Admits to fever. * HEENT: Denies headache, congestion, or sore throat. * Cardiac: Denies chest pain or palpitations. * Pulmonary: Admits to shortness of breath and cough. Green sputum. * GI: Admits to nausea and vomiting. * : Denies dysuria, hematuria, frequency, or urgency. * MSK: Denies pain in the extremities, joints, or myalgias. * Neuro: Denies weakness, numbness, vision changes, or speech difficulty. Exam Vital Signs Temp Pulse Resp BP Pulse Ox O2 Del Method O2 Flow Rate 100 F 85 19 94/59 L 97 Nasal Cannula 3 01/08/25 21:46 01/08/25 21:45 01/08/25 21:45 01/08/25 21:45 01/08/25 21:45 01/08/25 21:45 01/08/25 21:45 Narrative Exam General: Acutely ill-appearing. Neurologic: GCS 15. Alert and oriented x3, no gross neurological deficit, and patient able to move all 4 extremities. HEENT: Red rash right side of neck, not raised. Normocephalic, atraumatic, mucous membranes moist. Pupils reactive to light. Heart: Regular rate and rhythm, normal S1 and S2, no murmurs. Lungs: Diffuse crackles bilaterally. Abdomen: Soft, nondistended, nontender, positive bowel sounds. No guarding or rebound tenderness. Extremities: No edema. 2+ radial and dorsalis pedis pulses bilaterally. Skin: Scaly plaques roughly 2 cm in diameter on the lower extremities bilaterally. Results: Labs 01/08/25 17:33 01/08/25 17:33 Labs: Short CBC 01/08/25 Range/Units 17:33 WBC 3.9 (3.6-11.0) Thou/mm3 Hgb 14.0 (12.0-16.0) g/dL Hct 42.2 (36.0-46.0) % Plt Count 150 D (140-440) Thou/mm3 BMP 01/08/25 17:33 Sodium 139 Potassium 3.6 Chloride 110 H Carbon Dioxide 22.2 BUN 17 Creatinine 1.0 Glucose 103 Calcium 8.9 Cardiac Enzymes 01/08/25 Range/Units 17:33 Total Creatine Kinase 74 (34-171) U/L Troponin I < 0.020 (0.0-0.045) ng/mL Liver Function 01/08/25 Range/Units 17:33 Total Bilirubin 0.6 (0.3-1.2) mg/dL AST 153 H (0-34) U/L ALT 156 H (10-49) U/L Alkaline Phosphatase 65 (46-116) U/L Albumin 4.5 (3.5-5.0) gm/dL Urine 01/08/25 Range/Units 20:13 Urine Color Yellow (Lt Yel-Yel) Urine Clarity Clear (Clear/Hazy) Urine pH 6.5 (5.0-7.0) Ur Specific [place] 1.026 (1.001-1.035) Urine Protein Negative (Neg - Trace) Urine Glucose (UA) Negative (Negative) Quality Measures Quality Measures VTE prophylaxis Medications Home Medications and Allergies Allergies Allergy/AdvReac Type Severity Reaction Status Date / Time No Known Allergies Allergy Verified 01/08/25 17:13 Visit Medications Acetaminophen (Acetaminophen 325 Mg Tablet) 1,000 mg PO Q6H PRN PRN Reason: Fever >100.4 Stop: 02/07/25 23:42 Azithromycin (Azithromycin 250 Mg Tablet) 500 mg PO X1 ONE Stop: 01/09/25 09:01 Enoxaparin Sodium (Enoxaparin Sod Inj 40 Mg/0.4 Ml Syringe) 40 mg SC QDAY [facility] Stop: 01/23/25 08:59 Sodium Chloride (Ns) 1,000 mls @ 125 mls/hr IV .Q8H [facility] Stop: 02/07/25 17:12 Last Admin: 01/08/25 18:07 Dose: 125 mls/hr Ceftriaxone Sodium/Dextrose (Rocephin/D5w 1gm Iv Premix) 1 gm in 50 mls @ 100 mls/hr IV QDAY [facility] Stop: 01/15/25 23:47 Discontinued Medications Sodium Chloride (Ns) 1,000 mls @ 999 mls/hr IV .Q1H1M ONE Stop: 01/08/25 18:13 Last Infusion: 01/08/25 19:44 Dose: Infused Acetaminophen (Ofirmev Inj) 1,000 mg in 100 mls @ 250 mls/hr IV NOW ONE Stop: 01/08/25 17:36 Last Infusion: 01/08/25 18:41 Dose: Infused Ceftriaxone Sodium/Dextrose (Rocephin/D5w 1gm Iv Premix) 1 gm in 50 mls @ 100 mls/hr IV X1 ONE Stop: 01/08/25 19:08 Last Infusion: 01/08/25 20:03 Dose: Infused Lactated Ringer's (Lactated Ringers) 1,000 mls @ 999 mls/hr IV .Q1H1M ONE Stop: 01/08/25 21:17 Last Infusion: 01/08/25 21:45 Dose: Infused Lactated Ringer's (Lactated Ringers) 500 mls @ 999 mls/hr IV .Q31M ONE Stop: 01/08/25 21:16 Last Infusion: 01/08/25 21:46 Dose: Infused Ibuprofen (Ibuprofen Tab 400 Mg Tablet) 800 mg PO X1 ONE Stop: 01/08/25 20:17 Last Admin: 01/08/25 20:30 Dose: 800 mg Ondansetron HCl (Ondansetron Inj 2 Mg/Ml Inj 2 Ml) 4 mg IVP X1 ONE; Protocol Stop: 01/08/25 17:13 Last Admin: 01/08/25 18:16 Dose: 4 mg Assessment & Plan Plan Summary: 49-year-old female with a past medical history of COPD, psoriatic arthritis, and depression presented to the ED on 01/08/2025 with chief complaint of fever. She met 4/4 sepsis criteria. There was no evidence of end organ damage. The patient was admitted to observation for sepsis secondary to pneumonia versus viral infection. #Sepsis secondary to #Pneumonia versus #Viral URI * Patient had 4 out of 4 SIRS criteria: Temp 103.3, Pulse 112, Tachypneic with a RR of 30, WBC 3.9 * No evidence of endorgan damage * Patient became hypotensive in the ED though her maps were above 65, received 3.5 L of fluid in the ED * COVID and flu negative * LDH 323, Lactate 1.2 * Chest x-ray showed early right basilar pneumonia * Sepsis may be secondary to COPD exacerbation leading to pneumonia, given the patient's increase in dyspnea, green productive sputum, and elevated Pro-Kam of 3.87, which may reinforce a bacterial etiology on top of the COPD exacerbation * Sepsis may be secondary to a viral URI, given the relatively unimpressive x- ray that did not demonstrate significant opacities Plan: * NS maintenance at 75 mL/h * Ceftriaxone 1 g daily * Azithromycin 500 mg oral followed by 250 mg oral daily for 4 days * Tylenol and ibuprofen as needed for fevers * Blood cultures ordered * Sputum cultures ordered #History of Depression * Per patient history Plan: * Pending med rec * Consider restarting home depression medications #Psoriatic Arthritis * Per patient history * Areas of psoriasis on exam Plan: * No direct intervention at this time * Pending med rec * Consider restarting home medications for psoriatic arthritis Hospital Maintenance: DVT ppx: Lovenox 40 mg subcu daily Diet: Regular IV lines: Peripheral Code status: DNR, intubation okay Dispo: MedSurg, admitted for observation, fever improving, starting ceftriaxone azithromycin morning of 01/09/2025. Patient still hypotensive, maintenance fluids at 75 mL/h. Patient was seen and discussed with my attending physician Dr. Ryan PEDROZA and my senior resident Dr. Jordan PEDROZA PGY-2. Tj Moulton DO PGY-1.
[2025-01-09] VITALS (13 sets, daily range): BP systolic 99–121; BP diastolic 67–87; PULSE 71–89; RESP 4–19; TEMP 36.1–36.8; O2SAT 96–98; BMI 29.0
[2025-01-09] MEDS: SODIUM CHLORIDE 0.9% 1000 ML 1,000 ML 75 ML IV ×2 (01:15→17:18)
[2025-01-09] MEDS: NAPH,KPH MBDB 1 PACKET (1.5 GM) PO (01:16)
--- NOTE | 2025-01-09 02:30 | PC.NURSE ---
patient does not remember medications for medication reconciliation, [facility], night team states will let the morning team know.
[2025-01-09 06:05] LABS: Basophils # (Auto) 0.0 Thou/mm3 (0.0-0.2); Basophils % (Auto) 0 % (0-2.5); Eosinophils # (Auto) 0.0 Thou/mm3 (0.0-0.5); Eosinophils % (Auto) 1 % (0-10); Hematocrit 34.9 % (36.0-46.0); Hemoglobin 11.5 g/dL (12.0-16.0); Immature Granulocytes Auto 0.01 Thou/mm3 (0.00-0.00); Lymphocytes # (Auto) 0.3 Thou/mm3 (1.0-4.8); Lymphocytes % (Auto) 8 % (10-50); Mean Corpuscular HGB Conc 33.0 g/dl (31.0-37.0); Mean Corpuscular Hemoglobin 30.7 pg (25.0-35.0); Mean Corpuscular Volume 93 fL (80-100); Monocytes # (Auto) 0.3 Thou/mm3 (0.0-0.8); Monocytes % (Auto) 7 % (0-12); Neutrophils # (Auto) 3.8 Thou/mm3 (1.8-7.7); Neutrophils % (Auto) 84 % (37-80); Nucleated Red Blood Cell # 0.00 Thou/mm3 (0.00-0.00); Nucleated Red Blood Cell % 0 /100 WBC (0); Platelet Count 146 Thou/mm3 (140-440); RDW Standard Deviation 52.8 fL (36.4-46.3); Red Blood Count 3.75 Miln/mm3 (4.00-5.20); White Blood Count 4.6 Thou/mm3 (3.6-11.0)
[2025-01-09 07:40] LABS: Alanine Aminotransferase 126 U/L (10-49); Albumin, Serum 3.4 gm/dL (3.5-5.0); Alkaline Phosphatase 47 U/L (46-116); Anion Gap 4 (7-16); Aspartate Amino Transferase 57 U/L (0-34); BUN/Creatinine Ratio 18 Ratio (12-20); Bilirubin,Total 0.5 mg/dL (0.3-1.2); Blood Urea Nitrogen 14 mg/dL (9-23); Calcium 7.5 mg/dL (8.3-10.6); Calcium (Corrected) 8.0 mg/dL (8.5-10.1); Carbon Dioxide 24.8 mMol/L (20.0-31.0); Chloride 116 mMol/L (98-107); Creatinine (Component) 0.8 mg/dL (0.6-1.3); Estimated Creatinine Clearance 94.7 mL/min (>60); Glucose 106 mg/dL (74-106); Magnesium 1.8 mg/dL (1.6-2.6); Osmolality,Calculated 289 (275-295); Potassium 3.6 mMol/L (3.4-5.1); Sodium 145 mMol/L (136-145); eGFR > 60 See Note
[2025-01-09] MEDS: ENOXAPARIN SOD INJ 40 MG/0.4 ML SYRINGE SC (09:44)
[2025-01-09] MEDS: AZITHROMYCIN 250 MG TABLET 500 MG PO (09:45)
[2025-01-09] MEDS: cefTRIAXone/D5w 1gm IV premix 1 GM/50 ML BAG IV (09:45)
[2025-01-09] MEDS: ACETAMINOPHEN 500 MG TABLET 1000 MG PO ×2 (10:51→17:18)
[2025-01-09] MEDS: BENZONATATE 100 MG CAPSULE PO ×2 (10:56→21:10)
[2025-01-09 11:14] LABS: Amphetamine/Methamp Scrn,U Negative (Negative); Barbiturate Screen,Urine Negative (Negative); Benzodiazepines Screen,Urine Negative (Negative); Benzoylecgonine Screen, Ur Negative (Negative); Fentanyl Screen,Urine Negative (Negative); Opiate Screen,Urine Negative (Negative); THC Screen,Urine Negative (Negative)
--- NOTE | 2025-01-09 11:47 | PC.SS ---
Lyn Mott is a 49-year-old female admitted to Med Surg for Sepsis. SS conducted bedside contact with the patient to complete initial assessment and to discuss discharge planning. Role and reason explained. Patient confirmed demographic information. Patient identifies lon Heath [phone] as her surrogate decision maker. Pt states she is able to complete all ADL?s independently. No need for any source of DME. Pt currently residing at [facility] but address on file is her mailing address. Pts PCP is Dr. Caraballo at [facility]. Pharmacy of choice is [facility]. Discharge options discussed and the pt wishes to return home.? Family will provide transportation upon DC. No further intervention required at this time, professor of social work would be available to address any further concerns. DC Plan: [facility] Contact: Agallan Duffysteve Address: Confirmed on face sheet PCP: Ilya
--- NOTE | 2025-01-09 12:11 | ESPR_ITS ---
<Statement entered by Brit Serna MD - 01/22/25 09:16> I reviewed above note and agree with findings and plans. I have also personally examined the patient with medicine team and went over assessment and plan with medical team including international manager and resident physician. <Statement entered by Timothy Caraballo MD - 01/09/25 15:04> Patient was examined and case was reviewed with team including attending physician. Note reviewed, I agree with most of its contents and agree with the patient's care as documented by Dr. Tejeda Patient seen today at the bedside found awake, alert, orientedx3. No overnight events reported. Vitals and labs reviewed. Overnight was admitted for sepsis secondary to community-acquired pneumonia however on further evaluation sepsis was ruled out we will continue IV antibiotics 1 more day and will follow blood cultures until result. Case discussed with my attending Dr. Kareem Caraballo MD PGY-2 Disclaimer: Despite multiple revisions, due to the dictation software being used, the document bellow may not be free of grammatical errors including phonetic/typographic errors. However, this does not deter from our commitment to providing health care in the patient's best interest in mind. Documentation for date of: 01/09/25 Subjective Subjective Interval history: Patient states she feels significantly better compared to yesterday. No fever overnight. Still has mild shortness of breath and a 3-day history of productive green sputum. No nausea or vomiting today; tolerated breakfast slowly but well. Diarrhea has improved; 3 BMs in past 24 hours. Denies chest pain, dizziness, or other new symptoms. No other complaints. Exam Vital Signs Temp Pulse Resp BP Pulse Ox O2 Del Method O2 Flow Rate 97.1 F 72 17 117/81 96 Room Air 3 01/09/25 08:00 01/09/25 08:00 01/09/25 08:00 01/09/25 08:00 01/09/25 08:00 01/09/25 08:00 01/08/25 23:00 Narrative Exam General: Acutely ill-appearing. Neurologic: GCS 15. Alert and oriented x3, no gross neurological deficit, and patient able to move all 4 extremities. HEENT: Red rash right side of neck, not raised. Normocephalic, atraumatic, mucous membranes moist. Pupils reactive to light. Heart: Regular rate and rhythm, normal S1 and S2, no murmurs. Lungs: Clear to auscultation. Abdomen: Soft, nondistended, nontender, positive bowel sounds. No guarding or rebound tenderness. Extremities: No edema. 2+ radial and dorsalis pedis pulses bilaterally. Skin: Scaly plaques roughly 2 cm in diameter on the lower extremities bilaterally. Objective Labs 01/09/25 05:32 01/09/25 05:32 Labs: Laboratory Results - last 24 hr 01/08/25 01/08/25 01/08/25 17:33 19:50 20:06 WBC 3.9 RBC 4.65 Hgb 14.0 Hct 42.2 MCV 91 MCH 30.1 MCHC 33.2 RDW Std Deviation 50.8 H Plt Count 150 D Neut % (Auto) 88 H Lymph % (Auto) 7 L Yates % (Auto) 4 Eos % (Auto) 0 Baso % (Auto) 0 Neut # (Auto) 3.4 Lymph # (Auto) 0.3 L Yates # (Auto) 0.2 Eos # (Auto) 0.0 Baso # (Auto) 0.0 Immature Gran # (Auto) 0.01 H Absolute Nucleated RBC 0.00 Immature Gran % 0 Nucleated RBC % 0 PT 10.6 INR 1.0 APTT 28.4 Sodium 139 Potassium 3.6 Chloride 110 H Carbon Dioxide 22.2 Anion Gap 7 BUN 17 Creatinine 1.0 Estim Creat Clear Calc 363.9 eGFR > 60 BUN/Creatinine Ratio 17 Glucose 103 Calculated Osmolality 279 Lactic Acid 1.2 Calcium 8.9 Corrected Calcium 8.9 Phosphorus 1.8 L Magnesium 1.6 Total Bilirubin 0.6 AST 153 H ALT 156 H Alkaline Phosphatase 65 Lactate Dehydrogenase 323 H Total Creatine Kinase 74 Troponin I < 0.020 B-Natriuretic Peptide < 20 Total Protein 7.4 Albumin 4.5 Globulin 2.9 Albumin/Globulin Ratio 1.6 Lipase 38 Procalcitonin 3.87 H Ur Collection Type Urine Color Urine Clarity Urine pH Ur Specific [place] Urine Protein Urine Glucose (UA) Urine Ketones Urine Blood Urine Nitrite Urine Bilirubin Urine Urobilinogen (Auto) Ur Leukocyte Esterase Urine RBC Urine WBC Ur Squamous Epith Cells Urine Bacteria Ur Culture Indicated? Urine Opiates Screen Urine Fentanyl Screen Ur Barbiturates Screen U Amphetamin/Meth Scrn U Benzodiazepines Scrn U Cocaine Metab Screen U Marijuana (THC) Screen Influenza A (Rapid) Negative Influenza B (Rapid) Negative SARS-CoV-2 Ag (Rapid) Negative 01/08/25 01/09/25 01/09/25 20:13 05:32 10:15 WBC 4.6 RBC 3.75 L Hgb 11.5 L D Hct 34.9 L MCV 93 MCH 30.7 MCHC 33.0 RDW Std Deviation 52.8 H Plt Count 146 Neut % (Auto) 84 H Lymph % (Auto) 8 L Yates % (Auto) 7 Eos % (Auto) 1 Baso % (Auto) 0 Neut # (Auto) 3.8 Lymph # (Auto) 0.3 L Yates # (Auto) 0.3 Eos # (Auto) 0.0 Baso # (Auto) 0.0 Immature Gran # (Auto) 0.01 H Absolute Nucleated RBC 0.00 Immature Gran % 0 Nucleated RBC % 0 PT INR APTT Sodium 145 Potassium 3.6 Chloride 116 H Carbon Dioxide 24.8 Anion Gap 4 L BUN 14 Creatinine 0.8 Estim Creat Clear Calc 94.7 eGFR > 60 BUN/Creatinine Ratio 18 Glucose 106 Calculated Osmolality 289 Lactic Acid Calcium 7.5 L Corrected Calcium 8.0 L Phosphorus Magnesium 1.8 Total Bilirubin 0.5 AST 57 H ALT 126 H Alkaline Phosphatase 47 D Lactate Dehydrogenase Total Creatine Kinase Troponin I B-Natriuretic Peptide Total Protein Albumin 3.4 L D Globulin Albumin/Globulin Ratio Lipase Procalcitonin Ur Collection Type Clean Catch Urine Color Yellow Urine Clarity Clear Urine pH 6.5 Ur Specific [place] 1.026 Urine Protein Negative Urine Glucose (UA) Negative Urine Ketones Negative Urine Blood Negative Urine Nitrite Negative Urine Bilirubin Negative Urine Urobilinogen (Auto) 2.0 Ur Leukocyte Esterase Positive Urine RBC 4 H Urine WBC 9 H Ur Squamous Epith Cells < 1 Urine Bacteria None Ur Culture Indicated? Not Indicated Urine Opiates Screen Negative Urine Fentanyl Screen Negative Ur Barbiturates Screen Negative U Amphetamin/Meth Scrn Negative U Benzodiazepines Scrn Negative U Cocaine Metab Screen Negative U Marijuana (THC) Screen Negative Influenza A (Rapid) Influenza B (Rapid) SARS-CoV-2 Ag (Rapid) Quality Measures Quality Measures VTE prophylaxis Assessment & Plan Assessment Current Active Medications: Generic Name Dose Route Start Last Admin Trade Name Freq PRN Reason Stop Dose Admin Acetaminophen 1,000 mg 01/09/25 10:33 01/09/25 10:51 Acetaminophen 500 Mg Tablet PO 02/07/25 23:42 1,000 mg Q6H PRN Administration Fever >100.4 and pain 1-5 Benzonatate 100 mg 01/09/25 10:50 01/09/25 10:56 Benzonatate 100 Mg Capsule PO 02/08/25 10:49 100 mg Q8HR PRN Administration COUGH Protocol Enoxaparin Sodium 40 mg 01/09/25 09:00 01/09/25 09:44 Enoxaparin Sod Inj 40 Mg/0.4 Ml Syringe SC 01/23/25 08:59 40 mg QDAY CHELI Administration Ceftriaxone Sodium/Dextrose 1 gm in 50 mls @ 100 mls/hr 01/09/25 09:00 01/09/25 09:45 Rocephin/D5w 1gm Iv Premix IV 01/16/25 08:59 100 mls/hr QDAY CHELI Administration Sodium Chloride 1,000 mls @ 75 mls/hr 01/09/25 00:29 01/09/25 01:15 Ns IV 02/08/25 00:28 75 mls/hr .[id number] CHELI Administration Plan 49-year-old female with COPD, psoriasis/psoriatic arthritis, and depression admitted 01/08 for suspected sepsis secondary to pneumonia vs viral infection; sepsis ruled out, clinically improving, possible discharge tomorrow on oral antibiotics. # Sepsis ruled out # Community-acquired pneumonia Sepsis no longer suspected; Clinical improvement with antibiotics. Fever, tachycardia, and tachypnea improved. Blood cultures and sputum still pending. Plan: * Discharge tomorrow if stable, on oral antibiotics . * Follow-up with outpatient PCP for pneumonia management * If worsens (new fever, worsening SOB), continue IV antibiotics or consider escalation # History of COPD Stable respiratory status. No longer requiring oxygen. Plan: * Continue to monitor for any respiratory changes * Ensure appropriate follow-up for COPD * Continue home meds once med recs completed # Nausea/vomiting & diarrhea No nausea/vomiting today; diarrhea improving. Plan: * Continue supportive care * If discharge tomorrow, ensure adequate hydration and diet instructions # Transaminitis AST/ALT downtrending, likely secondary to infection. Plan: * Continue to monitor LFTs * No hepatotoxic meds # Mild hypocalcemia Replete magnesium if necessary, monitor calcium. Plan: * Replete as needed * Recheck calcium after Mg correction # Psoriatic arthritis / psoriasis Stable, no acute issues. Plan: * Restart home medications if appropriate after med rec # Depression Stable, no current concerns. Plan: * Restart home antidepressant after med rec Hospital Maintenance: DVT ppx: Lovenox 40 mg daily Diet: Regular Code Status: DNR, intubation okay Disposition: Possible discharge tomorrow on oral antibiotics ----- Plan discussed with attending physician Dr. Serna and senior resident Dr. Braden Tejeda MD PGY-1 Internal Medicine
[2025-01-09 13:18] LABS: Albumin/Globulin Ratio 1.5 (1.2-2.2); Globulin 2.2 gm/dL (2.3-3.5); Total Protein 5.6 gm/dL (5.7-8.2)
[2025-01-09] MEDS: GABAPENTIN 300 MG CAPSULE PO (21:10)
[2025-01-10] VITALS: BP 123/89; PULSE 73; RESP 18; TEMP 36.2; O2SAT 96
[2025-01-10] MEDS: ACETAMINOPHEN 500 MG TABLET 1000 MG PO (01:59)
[2025-01-10 04:00] VITALS: BP 137/82; PULSE 83; RESP 18; TEMP 36.5; O2SAT 95
[2025-01-10] MEDS: IBUPROFEN TAB 600 MG TABLET PO (04:12)
[2025-01-10] MEDS: BENZONATATE 100 MG CAPSULE PO (05:18)
[2025-01-10] MEDS: GABAPENTIN 300 MG CAPSULE PO (05:18)
[2025-01-10 06:16] LABS: Basophils # (Auto) 0.0 Thou/mm3 (0.0-0.2); Basophils % (Auto) 0 % (0-2.5); Eosinophils # (Auto) 0.1 Thou/mm3 (0.0-0.5); Eosinophils % (Auto) 2 % (0-10); Hematocrit 33.2 % (36.0-46.0); Hemoglobin 10.9 g/dL (12.0-16.0); Immature Granulocytes Auto 0.01 Thou/mm3 (0.00-0.00); Lymphocytes # (Auto) 0.7 Thou/mm3 (1.0-4.8); Lymphocytes % (Auto) 20 % (10-50); Mean Corpuscular HGB Conc 32.8 g/dl (31.0-37.0); Mean Corpuscular Hemoglobin 30.6 pg (25.0-35.0); Mean Corpuscular Volume 93 fL (80-100); Monocytes # (Auto) 0.3 Thou/mm3 (0.0-0.8); Monocytes % (Auto) 8 % (0-12); Neutrophils # (Auto) 2.5 Thou/mm3 (1.8-7.7); Neutrophils % (Auto) 69 % (37-80); Nucleated Red Blood Cell # 0.00 Thou/mm3 (0.00-0.00); Nucleated Red Blood Cell % 0 /100 WBC (0); Platelet Count 131 Thou/mm3 (140-440); RDW Standard Deviation 53.9 fL (36.4-46.3); Red Blood Count 3.56 Miln/mm3 (4.00-5.20); White Blood Count 3.6 Thou/mm3 (3.6-11.0)
[2025-01-10 06:26] LABS: Alanine Aminotransferase 180 U/L (10-49); Albumin, Serum 3.6 gm/dL (3.5-5.0); Albumin/Globulin Ratio 1.6 (1.2-2.2); Alkaline Phosphatase 45 U/L (46-116); Anion Gap 6 (7-16); Aspartate Amino Transferase 151 U/L (0-34); BUN/Creatinine Ratio 16 Ratio (12-20); Bilirubin,Total 0.3 mg/dL (0.3-1.2); Blood Urea Nitrogen 11 mg/dL (9-23); Calcium 7.9 mg/dL (8.3-10.6); Calcium (Corrected) 8.2 mg/dL (8.5-10.1); Carbon Dioxide 24.2 mMol/L (20.0-31.0); Chloride 118 mMol/L (98-107); Creatinine (Component) 0.7 mg/dL (0.6-1.3); Estimated Creatinine Clearance 108.3 mL/min (>60); Globulin 2.2 gm/dL (2.3-3.5); Glucose 91 mg/dL (74-106); Osmolality,Calculated 293 (275-295); Potassium 3.8 mMol/L (3.4-5.1); Sodium 148 mMol/L (136-145); Total Protein 5.8 gm/dL (5.7-8.2); eGFR > 60 See Note
[2025-01-10] MEDS: SODIUM CHLORIDE 0.9% 1000 ML 1,000 ML 75 ML IV (06:34)
[2025-01-10] MEDS: TIOTROPIUM BR 2.5 MCG 120 PUFF/4 GM INHALER INH (07:56)
[2025-01-10 07:58] VITALS: BP 143/92; PULSE 71; RESP 18; TEMP 36.5; O2SAT 96
--- NOTE | 2025-01-10 09:26 | ESDS_ITS ---
<Statement entered by Brit Serna MD - 01/22/25 09:17> I reviewed above note and agree with findings and plans. I have also personally examined the patient with medicine team and went over assessment and plan with medical team including newsroom intern and resident physician. Planned Discharge Date 01/10/25 DS: Providers Provider Date of admission: 01/08/25 23:43 Primary care physician: Grzegorz Caraballo MD Admitting Provider: Roberto Davis MD Attending Provider on Admission: Brit Serna MD Consults: 01/09/25 02:21 Referral Smoking Cessation Counseling Routine Comment: Smoking Cessation Education Needed Health Equity Referral - Nutrition Routine Comment: Positive screening for nutrition needs. Attending Provider on DC: Brit Serna MD Discharging Provider: Corry Tejeda MD DS: Diagnosis Problem List Completed Was Problem List Reviewed/Reconciled?: Yes Hospital Course Hospital Course Hospital course: 49-year-old female with COPD, psoriasis/psoriatic arthritis, and depression presented with fever, vomiting, watery diarrhea, productive green cough, and shortness of breath. She met 4/4 SIRS criteria on arrival with fever 103.3?F, tachycardia, tachypnea, and mild hypotension. Chest X-ray showed early right basilar pneumonia. COVID and influenza testing were negative. She received 3.5 L IV fluids, ceftriaxone, and azithromycin in the ED. Initial labs notable for WBC 3.9, elevated AST/ALT (153/156), and Pro-Kam 3.87. She was admitted for concern of sepsis secondary to pneumonia vs viral infection; however, sepsis was ruled out given stable MAPs, normal lactate, no end-organ dysfunction, and rapid clinical improvement. Her fever resolved within 24 hours, nausea/vomiting stopped, diarrhea improved, and shortness of breath returned to baseline. LFTs downtrended significantly. She tolerated oral intake and did not require oxygen beyond initial ED therapy. Blood cultures negative after 24 hours at discharge without early growth. Given clinical stability, improvement of symptoms, and ability to tolerate PO, she is safe for discharge home on oral antibiotics. Diagnosis during admission: # Sepsis ruled out # Community-acquired pneumonia # History of COPD # Nausea/vomiting & diarrhea # Transaminitis # Mild hypocalcemia # Psoriatic arthritis / psoriasis # Depression Discharge instructions: -Antibiotics: Continue Augmentin 875 mg/125 mg and doxycycline 100 mg every 12 hours for 3 more days. -Meds: Continue all home meds as prescribed. -Follow-up: Follow up with your PCP within a week. -Diet: Maintain regular diet, stay hydrated. -COPD Care: Continue prescribed inhalers and avoid irritants (smoking). -Activity: Rest and gradually increase activity as tolerated. -Return to ED if New or worsening fever, Increased shortness of breath or difficulty breathing, chest pain or tightness, Increased coughing. ----- Plan discussed with attending physician Dr. Kareem Tejeda MD PGY-1 Internal Medicine Time Spent with Patient Time attestation: Total time spent providing and/or coordinating discharge services: Time spent: Greater than 30 minutes Exam Vital Signs Temp Pulse Resp BP Pulse Ox O2 Del Method O2 Flow Rate 97.7 F 71 18 143/92 H 96 Room Air 3 01/10/25 07:58 01/10/25 07:58 01/10/25 07:58 01/10/25 07:58 01/10/25 07:58 01/10/25 07:58 01/10/25 00:00 Narrative Exam General: Acutely ill-appearing. Neurologic: GCS 15. Alert and oriented x3, no gross neurological deficit, and patient able to move all 4 extremities. HEENT: Red rash right side of neck, not raised. Normocephalic, atraumatic, mucous membranes moist. Pupils reactive to light. Heart: Regular rate and rhythm, normal S1 and S2, no murmurs. Lungs: Clear to auscultation. Abdomen: Soft, nondistended, nontender, positive bowel sounds. No guarding or rebound tenderness. Extremities: No edema. 2+ radial and dorsalis pedis pulses bilaterally. Skin: Scaly plaques roughly 2 cm in diameter on the lower extremities bilaterally. Discharge Plan Plan Patient Disposition: HOME (Self Care) Patient condition on transfer: Stable Care Plan Goals: Discharge instructions: -Antibiotics: Continue Augmentin 875 mg/125 mg and doxycycline 100 mg every 12 hours for 3 more days. -Meds: Continue all home meds as prescribed. -Follow-up: Follow up with your PCP within a week. -Diet: Maintain regular diet, stay hydrated. -COPD Care: Continue prescribed inhalers and avoid irritants (smoking). -Activity: Rest and gradually increase activity as tolerated. -Return to ED if New or worsening fever, Increased shortness of breath or difficulty breathing, chest pain or tightness, Increased coughing. Prescriptions/Referrals Prescriptions/Med Rec: New amoxicillin-pot clavulanate 875-125 mg tablet 1 tab PO BID Qty: 6 0RF doxycycline hyclate 100 mg capsule 100 mg PO BID 3 Days Qty: 6 0RF Continued pantoprazole [Protonix] 40 mg tablet,delayed release (DR/EC) 40 mg PO QDAY Qty: 30 0RF albuterol sulfate [Ventolin HFA] 90 mcg/actuation HFA aerosol inhaler 2 puff inhalation Q6H PRN (Reason: shortness of breath or wheezing) Qty: 8.5 0RF gabapentin 300 mg capsule 300 mg PO TID Patient Comments: TAKE 1 CAPSULE BY MOUTH THREE TIMES A DAY hydroxyzine HCl 25 mg tablet 25 mg PO QDAY PRN (Reason: anxiety) Patient Comments: TAKE 1 TABLET BY MOUTH EVERY DAY NEEDED sucralfate 1 gram tablet 1 g PO .TIDAC Patient Comments: TAKE 1 TABLET BY MOUTH 3 TIMES A DAY BEFORE MEALS mirtazapine 30 mg tablet,disintegrating 30 mg PO QAM Patient Comments: TAKE 1 TABLET BY MOUTH EVERY MORNING dicyclomine 20 mg tablet 20 mg PO TID Patient Comments: TAKE 1 TABLET BY MOUTH THREE TIMES A DAY atorvastatin 10 mg tablet 10 mg PO HS Patient Comments: TAKE 1 TABLET BY MOUTH EVERY DAY promethazine 6.25 mg/5 mL syrup 6.25 mg PO QDAY benzonatate 200 mg capsule 200 mg PO TID PRN (Reason: cough) Spiriva Respimat 2.5 mcg/actuation mist 2 inh inhalation QAM glucose [Dex4 Glucose] 4 gram tablet,chewable 4 g PO Q15M PRN (Reason: dumping syndrome) Rx Instructions: s/p gastric bypass, PRN for dumping syndrome ibuprofen 800 mg tablet 800 mg PO Q8H PRN (Reason: pain) Qty: 30 0RF Held ferrous sulfate 325 mg (65 mg iron) tablet 325 mg PO .COMPLEX Hold Instructions: Resume on 01/14/25. Until completion of antibiotics. Rx Instructions: 325 mg orally BID Every MWF; Be sure to take your iron pills on an empty stomach, with orange juice BID every MWF Discontinued amoxicillin-pot clavulanate 875-125 mg tablet 1 tab PO TID MDD 2 Referrals: Grzegorz Caraballo MD [Primary Care Provider, Family Practice] Patient/Caregiver Discharge Instructions Education Materials: What Is Pneumonia?, Preventing Pneumonia Print Language: Russian Stand Alone Forms: [facility] Award Info., Patient Portal Info Letter, Work/Release Restrictions Discharge Order Discharge Orders: Discharge (Routine); Ordered 01/10/25 Ordered By: Corry Tejeda Quality Discharge Quality Measures VTE prophylaxis
[2025-01-10] MEDS: cefTRIAXone/D5w 1gm IV premix 1 GM/50 ML BAG IV (09:48)
[2025-01-10] MEDS: ENOXAPARIN SOD INJ 40 MG/0.4 ML SYRINGE SC (09:49)
[2025-01-10] MEDS: CALCIUM CARBONATE 600 MG TABLET PO (09:49)
--- NOTE | 2025-01-10 10:08 | PC.SS ---
Rounding: Plan to DC opt today back to assisted, no needs identified
[2025-01-10 11:33] VITALS: BP 136/84; PULSE 77; RESP 18; TEMP 36.5; O2SAT 96
== END 2025-01-10 11:56 | disposition home or self-care (01) ==
LOC: SERX 22:23 → SERHOLD 01-09 00:20 → S3NX 01-09 11:36 → SERHOLD 01-10 09:43
PROVIDERS: Registered Nurse General Practice; Admitting Provider Internal Medicine; Emergency Provider Emergency Medicine; PCP Family Medicine; Visit Provider Internal Medicine
DX: J18.9 Pneumonia, unspecified organism (principal); J44.0 Chronic obstructive pulmonary disease with (acute) lower respiratory infection; R74.01 Elevation of levels of liver transaminase levels; E83.51 Hypocalcemia; F32.A Depression, unspecified; L40.50 Arthropathic psoriasis, unspecified; R11.2 Nausea with vomiting, unspecified; R19.7 Diarrhea, unspecified
CPT/HCPCS: 36415; 51701; 71045; 80053; 80307; 81001; 82550; 83605; 83615; 83690; 83735; 83880; 84100; 84145; 84484; 85025; 85610; 85730; 87040; 87077; 87186; 87205; 87502; 87811; 93005; 96361; 96365; 96366; 96372; 96375; 99285; G0378; J0131; J0696; J1650; J2405; J7030; J7120; A9270